=== PATIENT | male | born 1945 | race Caucasian/White ===

== ENCOUNTER 2025-07-12 02:55 | Inpatient (IN) | payer MEDICARE, BC, SELFPAY ==
[2025-07-11 21:44] VITALS: BP 165/40
[2025-07-11 22:04] VITALS: BMI 35.4
[2025-07-11 22:10] VITALS: BP 129/81
[2025-07-11 22:19] LABS: Hematocrit 24.9 % (39.0-52.0); Hemoglobin 8.2 g/dL (13.0-18.0); Mean Corp Hgb Conc. 32.9 g/dL (33.0-37.0); Mean Corpuscular Volume 94.0 fL (80.0-94.0); Nucleated Red Blood Cells % 0 % (-); Platelet Count 199 10^3/uL (130-400); Red Cell Dist. Width 16.2 % (11.5-14.5)
[2025-07-11 22:43] LABS: Troponin I 0.026 ng/ml
[2025-07-11 22:45] LABS: ALT (SGPT) 33 U/L (0-50); AST (SGOT) 40 U/L (17-59); Albumin 3.7 g/dl (3.5-5.0); Alkaline Phosphatase 93 U/L (38-126); Calcium 6.1 mg/dl (8.4-10.2); Carbon Dioxide 14 mmol/L (22-30); Chloride 104 mmol/L (98-107); Estimated Creatinine Clearance 8 ml/min; Glucose 213 mg/dl (70-99); Potassium 6.2 mmol/L (3.5-5.1); Sodium 135 mmol/L (135-145); Total Protein 6.9 g/dl (6.3-8.2); eGFR 4.33
[2025-07-11 22:55] LABS: Blood Urea Nitrogen 160 mg/dl (9-20)
[2025-07-11 23:00] VITALS: BP 132/48
--- NOTE | 2025-07-11 23:02 | EDRN ---
Patient reports needing to use the restroom, feels like he needs to have a bowl movement, ambulated in with assistance, was unable to go , back in bed, patient extremely short of breath after walking and o2 sat only 78%, informed patient we from now
on we can do bed shukla, as he became very short of breath.
[2025-07-11 23:18] VITALS: BP 104/48
[2025-07-11] MEDS: DEXTROSE 50% SYRINGE 25 GRAMS IV (23:18)
[2025-07-11] MEDS: SODIUM BICARBONATE 50 MEQ IV (23:18)
[2025-07-11] MEDS: LASIX 80 MG IV (23:18)
[2025-07-11] MEDS: LOKELMA 10 GRAM PO (23:19)
[2025-07-11] MEDS: CALCIUM GLUCONATE 1000 MG IV (23:19)
[2025-07-11] MEDS: NOVOLIN R 10 UNITS IV (23:19)
[2025-07-11 23:23] LABS: Glucose - Point of Care 241 mg/dl (70-99)
--- NOTE | 2025-07-11 23:30 | ED.GENMED ---
History of Present Illness
General
Chief Complaint: Breathing Problem
Source: patient and spouse
Exam Limitations: none
Time Seen by Provider: 07/11/25 22:41
Nursing documentation reviewed up to this point in time: agreed with
History of Present Illness
History of Present Illness:
This is an 80-year-old gentleman with history of CAD status post CABG times 10/2008. History of PAF chronically maintained on Xarelto, history of insulin requiring diabetes, hypertension, heart failure with preserved EF, neuropathy, chronic kidney
disease stage IV, anemia, hypothyroidism, right BKA. He was hospitalized at [facility] April 09 to April 14 with complaints of shortness of breath and chest pain, treated for acute CHF. Found to have anemia with hemoglobin ranging from
7-9. Thought to be chronic kidney disease as well as iron deficiency. Given an IV dose of iron and placed on oral iron tablets. Diuresed with IV Lasix and discharged to home with Lasix 80 mg daily. He was also found to have chronic kidney
disease with baseline creatinine of 2. Patient states he believes he had follow-up blood work perhaps shortly after that hospitalization, otherwise has an upcoming appointment with his PCP as well as teaching assistant later this month.
He has had no return of chest pain but complains of progressive shortness of breath over the past several weeks to perhaps a month, much worse over the past week or 2, severe dyspnea on exertion, he is only able to walk a few steps when he develops
severe shortness of breath. He has had no change in weight. No lower extremity edema. No cough nor fever.
Over the past week he has had several episodes of hypoglycemia with intermittent falls. He fell out of bed 3 days ago injuring his right side. He denies head injury. He has not had a headache. He denies neck nor back pain.
He does admit to significant constipation having passed a bowel movement perhaps a week ago. His appetite has been fair. He has had no nausea nor vomiting.
Tonight along with worsening dyspnea on exertion he also notes intermittent left lower quadrant pain along with the feeling of need to pass a bowel movement but unable to do so.
He denies difficulty urinating, no dysuria and urgency and or hematuria. He denies decreased urine output.
Past History
Past History
ED Past Medical History: Arrthythmia (PAF), CAD, CHF, COPD, HTN, Hypercholesterolemia, IDDM, Renal failure and Other (Peripheral neuropathy)
ED Past Surgical History: Cardiac (CABG times 10/2008) and Orthopedic (Right BKA)
Social History
Tobacco: Non-smoker
Alcohol: None
Drug: None
Personal:
Living: with family
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
Family History
Family History: Other (Noncontributory)
Phy Exam
Physical Exam
Physical Exam:
GENERAL: 80-year-old gentleman appears his stated age, awake and alert, oriented x 3, pleasant, very mild resting tachypnea noted but able to speak in full sentences. Room air pulse ox at rest 95 to 97%, drops precipitously to low 70s with minimal
exertion.
EYE: pupils equal and reactive. anicteric
NECK: Supple, nontender, no meningismus, no significant adenopathy. Mild JVD.
ENT: posterior pharynx is clear, oral mucosa is dry. No rhinorrhea.
CARDIAC: Regular rate and rhythm. no murmur.
LUNGS: Mild resting tachypnea, bibasilar rales, no chest wall tenderness, no rhonchi or wheezing.
ABDOMEN: Rotund, soft, nondistended, mild tenderness left lower quadrant without rebound or guarding, no r/g, no cvat. normoactive BS. 2 linear superficial scratches with minimal surrounding subacute ecchymosis right mid abdomen. There is a
subacute small ecchymotic patch right posterolateral hip. Rectal exam reveals scant yellowish-brown stool per vault, heme positive.
NEUROLOGICAL: Alert and oriented x3, no focal neuro deficits.
SKIN: Warm and dry, mildly pale in color, mild mottling of the extremities, skin intact. No rash.
MUSCULOSKELETAL: Right below the knee amputation. No C/C/E. peripheral pulses are full and equal b/l. No palpable tenderness.
PSYCH: Normal and appropriate interaction.
Scores
Heart Failure Risk
Heart Failure Risk Score: Yes
History of Stroke or TIA: No
History of intubation for respiratory distress: No
Heart rate on ED arrival >/= 110: No
SaO2 <90% on arrival on room air: No
HR >/=110 during 3min walk test (or too ill to perform test): Yes
ECG has acute ischemic changes: No
Urea >/=12mmol/L (BUN 33.6mg/dL): Yes
Serum CO2>/=35mmol/L: No
Troponin I or T elevated to SD Level (0.4mg/dL): No
NT-proBNP >/=5,000ng/L (5,000pg/ml): No
HF Risk Score: 3
Admission Status: HIGH RISK 15.9% Consider SNF treatment or admission to hospital
Course
Orders/Labs/Results
Orders:
Orders
07/11/25 21:52
ECG [Electrocardiogram (*1)] Urgent
Reason for Study: Shortness of Breath
EKG- Treatment ONCE
07/11/25 22:02
Cardiac Monitoring- Treatment ONCE
IV Insert/Care/Rem.- Treatment PRN
CR Chest - 2 Views Urgent
Comment:
Reason For Exam: respiratory distress
O2 Therapy [RESP] Urgent
Titrate/Wean O2 to maintain O2 sat greater than (%): 93
Special Instructions: TO MAINTAIN CONTINUOUS O2 SATS >/= 93%
Pulse Ox/cont/shift [RESP] Urgent
Quantity: 1
Special Instructions: continuous pulse ox
07/11/25 22:05
Complete Blood Count/With Diff Urgent
Comprehensive Metabolic Panel Urgent
NT-proBNP Urgent
TSH Reflex To Free T4 Urgent
Comment: ADDED
Troponin I Urgent
07/11/25 23:01
Calcium Gluconate 1,000 mg IV NOW STA
Dextrose 50%-Water [Dextrose 50% Syringe] 12.5 grams IV [id number] PRN
Dextrose 50%-Water [Dextrose 50% Syringe] 25 grams IV NOW STA
Furosemide [Lasix] 80 mg IV NOW STA
Insulin Human Regular [Novolin R] 10 units IV NOW STA
Sodium Bicarbonate 50 meq IV NOW STA
Sodium Zirconium Cyclosilicate [Lokelma] 10 gram PO NOW STA
07/11/25 23:02
Bedside Glucose PRE IV Insulin- HyperK+ NOW
07/11/25 23:52
Add On- LAB Urgent
Tests Added?: TSH w reflex to free T-4
07/12/25
CT Abd/pel Without Iv Or Oral Urgent
Reason For Exam: LLQ pain x 1 day, constipation, freq falls x [address] Head W/o Iv Contrast Urgent
Reason For Exam: freq falls x 1 wk, on xarelto
07/12/25 00:32
Bedside Glucose POST IV Insulin- HyperK+ Q1HX2,Q2HX2
07/12/25 01:19
Potassium Urgent
Comment: draw 2 hours after regular insulin IV administration
07/12/25 03:33
Potassium Urgent
Comment: draw 4 hours after furosemide administered
Abnormal Lab Results
07/11/25 07/11/25 07/11/25
22:05 23:16 23:46
WBC 16.0 H 10^3/uL
(4.8-10.8)
RBC 2.65 L 10^6/uL
(4.70-6.10)
Hgb 8.2 L g/dL
(13.0-18.0)
Hct 24.9 L %
(39.0-52.0)
MCHC 32.9 L g/dL
(33.0-37.0)
RDW 16.2 H %
(11.5-14.5)
MPV 12.2 H fL
(7.4-10.4)
Abs Immat Gran (auto) 0.2 H 10^3/uL
(0-0.05)
Absolute Neuts (auto) 13.4 H 10^3/uL
(1.4-6.5)
Absolute Lymphs (auto) 1.0 L 10^3/uL
(1.2-3.4)
Absolute Monos (auto) 1.3 H 10^3/uL
(0.1-0.6)
Immature Gran % 1.1 H %
(0-0.5)
Neutrophils % 84.1 H %
(42.2-75.2)
Lymphocytes % 6.0 L %
(20.5-51.1)
Potassium 6.2 H* mmol/L
(3.5-5.1)
Carbon Dioxide 14 L* mmol/L
(22-30)
BUN 160 H* mg/dl
(9-20)
Creatinine 10.9 H* mg/dL
(0.7-1.3)
Glucose 213 H mg/dl
(70-99)
Calcium 6.1 L* mg/dl
(8.4-10.2)
POC Glucose 241 H mg/dl 290 H mg/dl
(70-99) (70-99)
07/11/25 22:05
Vital Signs
Initial and Last Documented VS:
Initial Vital Signs
Temp Pulse Resp BP Pulse Ox
98 F 68 22 165/40 95
07/11/25 21:44 07/11/25 21:44 07/11/25 21:44 07/11/25 21:44 07/11/25 21:44
Last Documented Vital Signs
Temp Pulse Resp BP Pulse Ox
98 F 74 13 145/65 94
07/11/25 21:44 07/12/25 00:15 07/12/25 00:15 07/12/25 00:00 07/11/25 23:49
MDM/Problems Addressed
Differential Diagnosis Includes:
DIFFERENTIAL DIAGNOSIS
The Differential Diagnosis includes, in no particular order and is not limited to:
1. Congestive heart failure exacerbation.
2. Acute renal failure.
3. Hyperkalemia.
4. Constipation or bowel obstruction.
5. Acute coronary syndrome.
6. Pulmonary edema.
7. Chronic obstructive pulmonary disease.
8. Pulmonary embolism.
9. Hypertensive crisis.
10. Atrial fibrillation with rapid ventricular response.
11. Exacerbation of hypothyroidism
12. Kidney stone/urinary obstruction
MDM/Problems Addressed:
PROBLEM LIST
Acute:
1. Acute renal failure with elevated creatinine.
2. Hyperkalemia.
3. Constipation.
4. Shortness of breath.
Chronic:
1. Congestive heart failure.
2. Atrial fibrillation.
3. Chronic kidney disease.
4. IRDM
Patient noted to have fairly minimal dyspnea at rest but oxygenating well and remains hemodynamically stable.
Significant dyspnea on exertion and significant hypoxia with minimal exertion.
Labs are notable for moderate anemia with hemoglobin of 8.2�according to records this appears to be his baseline. Mildly elevated white blood cell count of 16. He remains afebrile. Denies cough, infectious process is less likely.
Brown stool that is heme positive. Concern for occult GI bleed versus heme positive related to oral iron supplementation. Also highly suspect anemia of chronic disease/chronic kidney disease.
Creatinine is significantly elevated at 10 with moderate hypocalcemia and elevated potassium of 6.2.
Creatinine has trended up significantly from April with apparent baseline creatinine of 2.0.
Chest x-ray shows cardiomegaly, concern for left lower lobe infiltrate versus an element of CHF.
EKG shows normal sinus rhythm, incomplete left bundle branch block. Minimally peaked T waves anteriorly. No old EKGs to compare.
Patient noted to have moderate intermittent left lower quadrant pain and urge to defecate. This could certainly be related to constipation but must also consider renal colic. Other consideration is post fall/trauma related intra-abdominal issue.
Rectal exam reveals only minimal stool within the vault.
A bedside renal ultrasound shows no evidence of hydronephrosis. No intra-abdominal free fluid on FAST exam.
Will treat hyperkalemia with IV calcium gluconate, IV insulin, glucose, IV Lasix and will give an oral dose of Lokelma.
Due to recent falls, chronically maintained on Xarelto, left lower quadrant abdominal pain, will check CT abdomen pelvis without contrast. Will also check CT of the head.
Patient will require acute hospitalization for treatment of acute on chronic kidney disease, acute exacerbation of CHF. Acute hypoxic respiratory failure.
Chronic conditions affecting care: DM, HTN, CAD, Arrhythmia, COPD, Neurological disorder and Kidney disease
*Radiology
Radiology exam reviewed: radiology read reviewed
*Pulse Oximetry
SaO2: 94
Oxygen Mode of Delivery: Room air
Patient hypoxic: no
*EKG
Interpreted by ED Provider?: Yes
Interpretation: abnormal
Comparison EKG: no comparison EKG present
Rate: normal
Rhythm: a-fib
[place]: normal axis
Interval: long QT
QRS Pattern: left bundle branch block (Incomplete left bundle branch block)
Ischemia: non-specific ST changes
*Splicing Machine Operator Interpretation
Rate: normal
Interpretation: abnormal
Rhythm: a-fib
*Critical Care Note
Total Time (30-74mins, 75-104mins- exclusive of procedures): 40
comment:
Critical care statement: A total of 40 minutes of critical care time was provided for this patient. This includes management of unstable vital signs, evaluation of the patient at bedside, reviewing the patient's pertinent medical records, discussion
with consultants, review of old EKGs and review of pertinent medical records. This time with separate from time utilized to perform the aforementioned documented procedures
Update Note
Update Note:
01:30
Patient remains hemodynamically stable.
CT of the head is unremarkable. CT abdomen pelvis shows wall thickening of the sigmoid colon with surrounding fat stranding. Concerning for colitis, diverticulitis is less likely. No bowel obstruction. No free fluid nor free air. Unremarkable
gallbladder, pancreas, kidneys. Mosaic attenuation of the lung bases could be related to small airway disease.
Repeat electrolytes are pending.
Will admit to hospitalist service.
ED Attending Note
-
Portions of this chart may have been created with voice recognition software.� Occasional wrong word or��sound alike� substitutions may have occurred due to the inherent limitations of voice recognition software.
Discharge Plan
Departure
Patient Disposition: Admit
Date of Disposition: 07/12/25
Time of Disposition: 01:37
Admit to: IMU
Admit to doctor: Ino
Presentation/result/management discussed w/ accepting MD/DO: Hospitalist
Condition: Serious
Discharge Problem:
Acute on chronic diastolic CHF (congestive heart failure), Acute kidney injury superimposed on stage 4 chronic kidney disease, Acute hyperkalemia, Acute hypoxemic respiratory failure, Insulin-requiring or dependent type II diabetes mellitus
Prescriptions:
No Action
atorvastatin 80 mg Tablet
80 mg PO HS
diclofenac sodium 3 % Gel
1 applic TOPICAL PRN PRN (Reason: pain)
amiodarone 200 mg Tablet
200 mg PO DAILY
cromolyn 4 % Drops
1 drp OPHTHALMIC (EYE) PRN PRN (Reason: dryness)
furosemide 80 mg Tablet
80 mg PO HS
desloratadine 5 mg Tablet
5 mg PO DAILY
ferrous sulfate 325 mg (65 mg iron) Tablet
325 mg PO DAILY
levothyroxine 125 mcg Tablet
125 mcg PO DAILY
gabapentin 300 mg Capsule
600 mg PO DAILY
insulin aspart U-100 [Novolog FlexPen U-100 Insulin] 100 unit/mL (3 mL) Insulin Pen
1 sliding scale dose SC DIRECTED
tadalafil 5 mg Tablet
5 mg PO .EVERY 3RD DAY
metoprolol tartrate 25 mg Tablet
25 mg PO BID
solifenacin 5 mg Tablet
5 mg PO DAILY
pregabalin 150 mg Capsule
150 mg PO DAILY
Xarelto 15 mg Tablet
15 mg PO BID
insulin degludec [Tresiba FlexTouch U-200] 200 unit/mL (3 mL) Insulin Pen
116 unit SC HS
Ozempic 2 mg/dose (8 mg/3 mL) Pen Injector
8 mg SC QWEEK
pregabalin 300 mg Capsule
300 mg PO HS
Referrals:
Elizabeth Nolasco DO [Family Provider]
Interventions
Interventions:
*General Assessment Last Done: 07/11/25 21:44
*Neglect/Abuse Screening Last Done: 07/11/25 22:04
*ED COVID-19 Vaccine History Last Done: 07/11/25 22:04
*ED Influenza Vaccine History Last Done: 07/11/25 22:04
[facility] Fall Risk Assessment Tool Last Done: 07/11/25 22:04
ED- Cardiac Assessment Last Done: 07/11/25 23:07
ED- Pulmonary Assessment Last Done: 07/11/25 23:07
Discharge Date and Time
Print Language: ALBANIAN
[2025-07-11 23:47] LABS: Glucose - Point of Care 290 mg/dl (70-99)
[2025-07-12] VITALS (12 sets, daily range): BP systolic 96–146; BP diastolic 44–100; BMI 34.7
--- NOTE | 2025-07-12 01:41 | EDRN ---
Patient needing to using the restroom, placed on the bedpan, had a small soft bowl moment, cleaned up and pulled up in bed
[2025-07-12 01:43] LABS: Glucose - Point of Care 198 mg/dl (70-99)
[2025-07-12 01:53] LABS: Potassium 5.9 mmol/L (3.5-5.1)
--- NOTE | 2025-07-12 02:47 | HPS.HSE ---
Family Physician
-
Family Physician: Elizabeth Nolasco
Chief Complaint
-
SOB
History of Present Illness
Patient is an 80y M with PMH significant for hypertension, DM-II and CHF who presents to ED complaining of SOB. Patient states that he was hospitalized about 2 months ago at [facility]. He was newly diagnosed with CHF during that visit
and started on several new medications including Lasix 80mg daily. Patient states that he presented with chest pain and SOB. His chest pain improved; however, his SOB did not. Patient notes that he has continued to feel progressively more SOB
with activity since that discharge. He states that he is urinating without difficulty. He complains of constipation and notes that his last BM was about one week ago.
No fevers / chills. No chest pain / palpitations. No cough. No N/V.
Patient notes that he now becomes SOB even with minimal exertion / activity. He presented to the ED for further evaluation.
Medical History
Past Medical History
Past Medical History: Reports Other
Additional Past Medical History:
ASCVD
Hypertension
CHF
A-Fib
DM-II
Peripheral Neuropathy
Obesity
Hypothyroidism
CKD - ? Stage
Past Surgical History: Reports Other
Additional Past Surgical History:
CABG x 2
Right BKA
Social History
Tobacco: Former Smoker
Alcohol: None
Drug: None
Family History
Family History: Not pertinent
Allergies / Home Medications
Allergies reflects when Allergies were last updated in [facility].
Home Medications with original date entered in [facility]
Allergy/Medication List:
Allergies
Allergy/AdvReac Type Severity Reaction Status Date / Time
No Known Allergies Allergy Unverified 07/11/25 21:44
Home Medications
amiodarone 200 mg tablet 200 mg PO DAILY 07/11/25
atorvastatin 80 mg tablet 80 mg PO HS 07/11/25
cromolyn 4 % eye drops 1 drp ophthalmic (eye) PRN PRN dryness 07/11/25
desloratadine 5 mg tablet 5 mg PO DAILY 07/11/25
diclofenac sodium 3 % topical gel 1 applic topical PRN PRN pain 07/11/25
ferrous sulfate 325 mg (65 mg iron) tablet 325 mg PO DAILY 07/11/25
furosemide 80 mg tablet 80 mg PO HS 07/11/25
gabapentin 300 mg capsule 600 mg PO DAILY 07/11/25
insulin aspart U-100 100 unit/mL (3 mL) subcutaneous pen (Novolog FlexPen U-100 Insulin aspart) 1 sliding scale dose SC DIRECTED 07/11/25
insulin degludec 200 unit/mL (3 mL) subcutaneous pen (Tresiba FlexTouch U-200 insulin) 116 unit SC HS 07/11/25
levothyroxine 125 mcg tablet 125 mcg PO DAILY 07/11/25
metoprolol tartrate 25 mg tablet 25 mg PO BID 07/11/25
pregabalin 150 mg capsule 150 mg PO DAILY 07/11/25
pregabalin 300 mg capsule 300 mg PO HS 07/11/25
rivaroxaban 15 mg tablet (Xarelto) 15 mg PO BID 07/11/25
semaglutide 2 mg/dose (8 mg/3 mL) subcutaneous pen injector (Ozempic) 8 mg SC QWEEK 07/11/25
solifenacin 5 mg tablet 5 mg PO DAILY 07/11/25
tadalafil 5 mg tablet 5 mg PO .EVERY 3RD DAY 07/11/25
Review of Systems
-
History Source: Patient
A 12 point ROS was completed and negative except as noted: Yes
Constitutional: Reports Fatigue; Denies Fever or Chills
EENT: Denies Sore Throat
Respiratory: Reports Trouble Breathing; Denies Cough or Hemoptysis
Cardiac: Denies Chest Pain, Diaphoresis, Palpitations or Syncope
Abdomen/GI: Reports Constipated; Denies Abdominal Pain, Nausea or Vomiting
: Denies Dysuria, Frequency or Flank Pain
Musculoskeletal: Denies Joint Pain or Edema
Neurological: Denies Dizzy or Headache
Psych: Denies Depression or Anxiety
Physical Exam
Vital Signs
Vital Signs
Temp Pulse Resp BP Pulse Ox
98 F 78 15 146/58 90
07/11/25 21:44 07/12/25 01:30 07/12/25 01:30 07/12/25 01:00 07/12/25 01:15
Physical Exam
General: Other (Obese 80y M in no acute distress.)
HEENT: Other (Very thick neck. No appreciable JVD.)
Respiratory: Other (Decreased at both bases. No wheezes / rales / rhonchi.)
Cardiac: S1/S2, Irregular Rhythm and Murmur (II/ DEISY)
GI: Other (Abdomen is obese and distended. No focal tenderness / rebound / guarding. Pos BS.)
Musculoskeletal: No Clubbing, No Cyanosis, No Edema and Other (R BKA. No peripheral pitting edema R thigh or LLE.)
Neuro: AO x 3
Laboratory Results
-
07/11/25 22:05
Laboratory Results
Total Bilirubin 0.8 mg/dl (0.2-1.3) 07/11/25 22:05
AST 40 U/L (17-59) 07/11/25 22:05
ALT 33 U/L (0-50) 07/11/25 22:05
Alkaline Phosphatase 93 U/L (38-126) 07/11/25 22:05
Troponin I 0.026 ng/ml 07/11/25 22:05
Impression/Plan
-
A/P: Patient is an 80y M with PMH significant for ASCVD, CHF and DM-II who presents to ED complaining of SOB with exertion.
LYNN on CKD - ? Stage
Anion Gap Metabolic Acidosis secondary to the above
Hyperkalemia
- Admit for further evaluation and treatment.
- Received initial hyperkalemia temporizing measures in the ED.
- Whitney to be placed now with marked LYNN, hyperkalemia, BPH and constipation.
- Monitor I/Os.
- Volume status is difficult to assess. Newly started on Lasix 80mg daily about 2 months ago.
- No significant edema on exam, but significant exertional dyspnea / hypoxemia.
- Would hold further diuretic for now.
- IVFs with supplemental bicarb at low rate.
- Send to [facility] for most recent records re: baseline renal function, recent Echo, etc.
- Nephrology evaluation for additional recommendations.
- ? worsening cardiorenal syndrome. ? impending HD needs.
- Hold or adjust most of his medications acutely.
- Monitor for improvement in renal function, acidosis, etc.
Acute Hypoxemic Respiratory Insufficiency
- Patient with persistent / progressive exertional dyspnea x [address]
- CT / CXR with ground glass / mosaic changes primarily.
- Check ABGs now.
- Body habitus consistent with ALVIN / OHV and may benefit from NIPPV.
- Continue supportive care with O2 supplementation, etc.
- Cardiovascular evaluation as noted below. Obtain and review most recent records from [facility].
- Consider Pulmonary evaluation if no clear etiology for hypoxemia is identified.
Chronic HF - Unknown Type
- Despite exertional dyspnea / hypoxemia, patient does not appear grossly volume overloaded on exam, CXR, etc.
- Hold further diuretic for now.
- Check Echo. Obtain prior records from [facility].
- CHF is a recent diagnosis as of last [facility] admission about 2 months ago.
Diverticulitis / Colitis
Constipation
Leukocytosis with L Shift
- Patient reports no BM in [address] with sigmoid inflammation - colitis v diverticulitis.
- Good results in ED after Lokelma dose.
- Continue bowel regimen.
- IV abx for now with ceftriaxone and metronidazole.
- Follow for improvement in leukocytosis. Monitor for any fever or new symptoms.
ASCVD
- h/o CABG x2. Patient reports cath done during most recent hospitalization that showed 'clean coronaries'.
- ASA daily. Monitor for any chest pain / etc.
- Follow troponin to peak - fairly mild elevation given extent of renal impairment.
Atrial Fibrillation - Unknown Type
- Stable. Hold amiodarone acutely given prolonged QT.
- Hold Xarelto given LYNN.
- Continue metoprolol with holding parameters.
- Monitor on telemetry. Cardio eval / prior records as noted above.
DM-II with Peripheral Neuropathy
- Patient on very high doses of insulin. Will decrease acutely given poor renal function.
- Follow and cover with additional SSI as needed.
- Adjust dose for adequate glycemic control.
- Update A1C.
- Hold gabapentin and Lyrica (both?) acutely.
- Hold Ozempic.
Normocytic Anemia
- Unknown etiology, chronicity, etc. Review prior records once available.
- Heme test stools. Check iron studies and replete if needed.
- Follow H&H for changes.
Hypothyroidism
- TSH is elevated at 11.9. Increase T4 supplementation to 150mcg for now.
BPH
- Whitney placed acutely given LYNN, hyperkalemia, etc.
- Hold tadalafil. Start tamsulosin.
- Follow I/Os. TOV prior to discharge.
Obesity due to excess calories
- Affects all aspects of care.
- See above re: ALVIN / OHV.
- Encourage healthy diet and exercise as tolerated with goal of weight loss.
DVT Prophylaxis: Subcut Heparin
Code Status: Full
--- NOTE | 2025-07-12 03:02 | EDRN ---
Patient placed on bedpan to have a large bowl movement, cleaned up and pulled up in bed.
[2025-07-12 03:14] LABS: Glucose - Point of Care 193 mg/dl (70-99)
[2025-07-12] MEDS: ROCEPHIN 1000 MG IV (03:14)
[2025-07-12] MEDS: STERILE WATER FOR INJECTION 10 ML IV (03:14)
[2025-07-12] MEDS: FLAGYL 500 MG 100 IV ×2 (03:14→13:48)
[2025-07-12 03:40] LABS: B.E. -11.5 mmol/L; HCO3 13.9 mmol/L (21-28); O2 Saturation % 96.3 % (94-98); PCO2 29 mmHg (35-48); PO2 79 mmHg (83-108)
[2025-07-12 03:44] LABS: O2 Therapy 2 LPM
[2025-07-12 03:59] LABS: Potassium 5.8 mmol/L (3.5-5.1)
[2025-07-12] MEDS: SODIUM BICARBONATE 1150 MEQ IV (04:45)
[2025-07-12 05:10] LABS: Glucose - Point of Care 150 mg/dl (70-99)
[2025-07-12 05:34] LABS: Glucose - Point of Care 144 mg/dl (70-99)
[2025-07-12 05:50] LABS: Hematocrit 23.3 % (39.0-52.0); Hemoglobin 7.6 g/dL (13.0-18.0); Mean Corp Hgb Conc. 32.6 g/dL (33.0-37.0); Mean Corpuscular Volume 93.2 fL (80.0-94.0); Platelet Count 146 10^3/uL (130-400); Red Cell Dist. Width 16.2 % (11.5-14.5)
[2025-07-12 06:18] LABS: Iron 54 ug/dl (49-181)
[2025-07-12 06:28] LABS: Total Iron Binding Capacity 274 ug/dl (261-462)
[2025-07-12 06:31] LABS: ALT (SGPT) 33 U/L (0-50); AST (SGOT) 35 U/L (17-59); Albumin 3.5 g/dl (3.5-5.0); Alkaline Phosphatase 89 U/L (38-126); Blood Urea Nitrogen 169 mg/dl (9-20); Calcium 6.3 mg/dl (8.4-10.2); Carbon Dioxide 17 mmol/L (22-30); Chloride 105 mmol/L (98-107); Estimated Creatinine Clearance 8 ml/min; Glucose 128 mg/dl (70-99); Magnesium 1.3 mg/dl (1.6-2.3); Potassium 5.6 mmol/L (3.5-5.1); Sodium 140 mmol/L (135-145); Total Protein 6.6 g/dl (6.3-8.2); Troponin I 0.024 ng/ml; eGFR 4.48
[2025-07-12 06:55] LABS: Ferritin 111.0 ng/ml (17.9-464.0)
[2025-07-12 07:26] LABS: Glycohemoglobin (HgbA1c) 7.5 % (4.0-5.9)
[2025-07-12 07:50] LABS: Glucose - Point of Care 132 mg/dl (70-99)
[2025-07-12] MEDS: SYNTHROID 150 MCG PO (08:36)
[2025-07-12] MEDS: LOKELMA 10 GRAM PO ×3 (08:39→17:51)
[2025-07-12] MEDS: MAGNESIUM SULFATE 50 IV (08:39)
[2025-07-12] MEDS: HEPARIN 5000 UNITS SC ×3 (08:40→23:29)
[2025-07-12] MEDS: NOVOLOG FLEXPEN-MODERATE RESISTANCE SC ×2 (09:22→17:47)
[2025-07-12] MEDS: LANTUS 0.2 UNITS SC ×2 (09:26→22:27)
--- NOTE | 2025-07-12 10:40 | CON.CAR ---
Addendum entered and electronically signed by Luis Armando Salas MD 07/12/25 12:21:
I reviewed and agree with the note by KATYA and it accurately reflects our care.
I saw and evaluated the patient, and I provided the substantive portion of the medical decision making. My assessment and plan is below:
80-year-old man with CAD s/p CABG (2008), NSVT, paroxysmal atrial fibrillation, CKD, diabetes, hypertension, and osteomyelitis s/p BKA of RLE who presents with shortness of breath. Patient follows with Dr. Kory Salmeron at [facility] cardiology. Over
the summer he developed chest tightness and dyspnea on exertion. Left heart catheterization from 03/23/2025 showed [place] coronary artery disease and patent bypass grafts. TTE from 03/21/2025 showed LVEF 60-65%, mildly dilated RV with normal
systolic function, moderate MR, mild TR, PASP 40-45 mmHg. He was started on Lasix which he is still taking. He was hospitalized at [facility] 2 months ago for chest pain. I do not have these records for review but he tells me that he was
started on steroids and his chest pain improved. Shortness of breath persists and has been progressive since March. He denies weight gain, lower extremity edema, and orthopnea. His dyspnea is primarily on exertion.
Physical exam: RRR, no significant murmurs though body habitus limits auscultation, lungs are clear bilaterally, RLE BKA, LLE with no edema and 2+ DP pulse
Labs are notable for hemoglobin 7.6, K6.2 -> 5.6, BUN 169, creatinine 10.6, A1c 7.5, troponin 0.026, proBNP 3020, TSH 11.9, free T41.2 (WNL)
CXR with low lung volumes, no pleural effusions, no significant pulmonary edema
PLAN:
Acute renal failure: Unclear baseline creatinine. Nephrology is consulted. We are trying to obtain records.
HFpEF: Last EF 60-65% in March. His volume exam is difficult due to body habitus, and he does not weigh himself. His proBNP is not severely elevated (but he is obese) and CXR does not show significant pulmonary edema or pleural effusions. I do
not think that he is profoundly volume overloaded but again his volume status is challenging. Will discuss with utility of right heart catheterization with renal. Repeat echo here. Hold diuretics for now.
Paroxysmal atrial fibrillation: He is in an accelerated junctional rhythm here. He is on amiodarone as an outpatient. Previously on sotalol but this was stopped due to progressive CKD. Will hold amiodarone for long QT (483 ms). Xarelto also on
hold for anemia and very low GFR.
Coronary artery disease: Had three-vessel CABG in 2008. LHC in March 2025 showed patent grafts. Continue aspirin and statin. If hemoglobin drops further, can hold aspirin given stable disease with no recent revascularization.
NSVT: Reportedly monomorphic, asymptomatic, and seen on outpatient monitor in 2020. Amiodarone on hold as above. Continue metoprolol.
Original Note:
Consultation
Consultation Request
Date/Time Consultation Requested: 07/12/2025 04:15
Date/Time Consultation Performed: 07/12/2025 10:00
Requesting Provider: Dr. Mckinnon
Performing Provider: KATYA Gilman for Dr. Salas
Reason for Consultation: Chronic heart failure
Medical History
-
Chief Complaint: Shortness of breath
History of Present Illness:
David Valdivia is an 80-year-old male (known to Dr. Salmeron at [facility]) with coronary artery disease (prior CABG), heart failure (type unknown), atrial fibrillation (type unknown, on rivaroxaban), NSVT, hypertension, hypercholesterolemia, CKD stage
unknown, hypothyroidism, and type 2 diabetes mellitus who presented to the emergency department the chief complaint of shortness of breath. He endorses a hospitalization at [facility] approximately 2 months ago. At that time his medical
therapy changed including starting furosemide. His shortness of breath has gotten worse since discharge. He presented to the emergency room for evaluation. Notable data includes an EKG with an accelerated junctional rhythm and a prolonged QTc,
WBC 16, K6.2, BUN 160, CO2 14, and creatinine of 10.9. Cardiology was consulted for heart failure management. He denies chest pain, dizziness, and syncope/presyncope.
Past Medical History
Past Medical History: Arrhythmias (NSVT, atrial fibrillation [type unknown, on Xarelto]), CAD, CHF, HTN, Hypercholesterolemia, Hypothyroidism, NIDDM and Renal Failure (CKD)
Past Surgical History: Cardiac (CABG) and Other (Right BKA)
Social History
Tobacco: Former Smoker
Personal:
Living: With Family
Employment: Retired
Family History
Family History: Reviewed & Not Pertinent
Allergies / Home Medications
Allergy/AdvReac Type Severity Reaction Status Date / Time
No Known Allergies Allergy Unverified 07/11/25 21:44
�Medication �Instructions �Recorded �Confirmed �Type
amiodarone 200 mg tablet 200 mg PO DAILY 07/11/25 07/11/25 History
atorvastatin 80 mg tablet 80 mg PO HS 07/11/25 07/11/25 History
cromolyn 4 % eye drops 1 drp ophthalmic (eye) PRN PRN 07/11/25 07/11/25 History
dryness
desloratadine 5 mg tablet 5 mg PO DAILY 07/11/25 07/11/25 History
diclofenac sodium 3 % topical gel 1 applic topical PRN PRN pain 07/11/25 07/11/25 History
ferrous sulfate 325 mg (65 mg 325 mg PO DAILY 07/11/25 07/11/25 History
iron) tablet
furosemide 80 mg tablet 80 mg PO HS 07/11/25 07/11/25 History
gabapentin 300 mg capsule 600 mg PO DAILY 07/11/25 07/11/25 History
insulin aspart U-100 100 unit/mL 1 sliding scale dose SC DIRECTED 07/11/25 07/11/25 History
(3 mL) subcutaneous pen (Novolog
FlexPen U-100 Insulin aspart)
insulin degludec 200 unit/mL (3 116 unit SC HS 07/11/25 07/11/25 History
mL) subcutaneous pen (Tresiba
FlexTouch U-200 insulin)
levothyroxine 125 mcg tablet 125 mcg PO DAILY 07/11/25 07/11/25 History
metoprolol tartrate 25 mg tablet 25 mg PO BID 07/11/25 07/11/25 History
pregabalin 150 mg capsule 150 mg PO DAILY 07/11/25 07/11/25 History
pregabalin 300 mg capsule 300 mg PO HS 07/11/25 07/11/25 History
rivaroxaban 15 mg tablet (Xarelto) 15 mg PO BID 07/11/25 07/11/25 History
semaglutide 2 mg/dose (8 mg/3 mL) 8 mg SC QWEEK 07/11/25 07/11/25 History
subcutaneous pen injector (Ozempic)
solifenacin 5 mg tablet 5 mg PO DAILY 07/11/25 07/11/25 History
tadalafil 5 mg tablet 5 mg PO .EVERY 3RD DAY 07/11/25 07/11/25 History
Review of Systems
-
History Source: Patient
All other systems: Negative unless noted
Constitutional: Fatigue
EENT: No Symptoms
Respiratory: Trouble Breathing
Cardiac: No Symptoms
Abdomen/GI: No Symptoms
: No Symptoms
Musculoskeletal: No Symptoms
Neurological: No Symptoms
Endocrine: No Symptoms
Hematologic/Lymphatic: No Symptoms
Physical Exam
Vital Signs
Temp Pulse Resp BP Pulse Ox
98.0 F 81 13 96/60 96
07/12/25 08:00 07/12/25 06:00 07/12/25 06:00 07/12/25 05:02 07/12/25 06:00
Lab Results
07/12/25 05:34
07/12/25 05:34
Troponin I Cancelled 07/12/25 16:15
Yhj-W-Vzepleijhkk Pept 3020 pg/ml 07/11/25 22:05
Physical Exam
General: Well Developed, Well Nourished, No Apparent Distress and Comfortable
HEENT: Normocephalic, Anicteric and Moist Mucous Membranes
Respiratory: Clear and Non Labored Respirations
Cardiac: S1/S2, Irregular Rhythm and Peripheral Edema (trace)
Breast: Deferred by me
GI: Soft, Non Tender, Non Distended and Normal Bowel Sounds
Rectal: Deferred by Provider
Genito-urinary: No Costovertebral Tender
Musculoskeletal: No Clubbing and No Cyanosis
Skin: Warm and Dry
Neuro: Awake and Alert
Hematologic/Lymphatic: No Lymphadenopathy
Psych: Calm
Impression / Plan
-
I/P: 80M with CAD (prior CABG), heart failure (type unknown), atrial fibrillation (type unknown, on rivaroxaban), NSVT, hypertension, hypercholesterolemia, CKD stage unknown, hypothyroidism, and type 2 diabetes mellitus who presented to the
emergency department the chief complaint of shortness of breath.
Primary physiotherapist's assistant: Dr. Salmeron ([facility])
Shortness of breath
- Given his BMI consider ALVIN evaluation
- Records requested from primary physiotherapist's assistant
- Echocardiogram today
- May need to consider RHC for volume status this admission
LYNN on CKD, CKD stage unknown
- Creatinine 10.9 on admission, 10.6 today
- Nephrology following
Heart failure, type unknown, chronic
- He does not appear grossly volume overloaded on exam
- No diuresis with current renal status
- Trend daily weight, I/O, and BMP
Atrial fibrillation, type unknown
- Accelerated junctional rhythm
- Xarelto on hold given LYNN
CAD, s/p CABG
- Denies chest pain, not on ASA as he is on Xarelto
- [facility] 03/2025: All bypass grafts were patent (Dr. Dick)
NSVT, amiodarone on hold
Type 2 diabetes mellitus, HgbA1c pending, per primary
Obesity, BMI 34, on Ozempic
SUBJECTIVE:
As above.
DATA:
Transthoracic echocardiogram, 03/21/2025:
EF 60 to 65%. RV mildly dilated. No evidence of PFO
Moderate mitral regurgitation. Mild TR. PASP 40-45 mmHg
Data Reviewed
-
EKG: Report Reviewed by me
Labs: Labs Reviewed by me
Old Records: Requested
[2025-07-12] MEDS: LOPRESSOR 25 MG PO ×2 (11:06→20:17)
[2025-07-12] MEDS: LOW STRENGTH ASPIRIN 81 MG PO (11:06)
[2025-07-12] MEDS: FLOMAX 0.4 MG PO (11:06)
[2025-07-12] MEDS: MIRALAX 17 GRAMS PO (11:06)
--- NOTE | 2025-07-12 11:18 | W.CON.NEPH ---
Consultation
-
Date/Time Consultation Requested: 07/12/25 0415
Date/Time Consultation Performed: 07/12/25 1030
Requesting Provider: Luciano Baker
Performing Provider: Staci Lewis
Reason for Consultation: LYNN
Medical History
-
Chief Complaint: SOB
History of Present Illness:
80y M with PMH significant for hypertension on metoprolol, P afib on Amiodarone, AC with high dose Xarelto, CAD s/p CABG 2008, DM-II on Ozempic, Tresiba, right BKA for infection, neuroapthy on gabapentin, lyrica, and CHF on daily lasix who
presents to ED last night complaining of SOB. Patient states that he was hospitalized about 2 months ago at [facility]. He was newly diagnosed with CHF during that visit and started on several new medications including Lasix 80mg daily.
Patient states that he initially presented with chest pain and SOB, LHC reportedly was done too. His chest pain improved; however, his SOB did not improve to baseline. Patient notes that he has continued to feel progressively more SOB with
activity since that discharge. He states that he is urinating without difficulty. He complains of constipation and notes that his last BM was about one week ago.
No fevers / chills. No chest pain / palpitations. No cough. No N/V, no abd pain.
Labs noted cr 10.9, BUN 160, k 6.2, bicarb 14, WBC 16, hb 8.2, plt 199, morales low 6.1, BNP 3020. He was started on bicarb IVF cr no change at this am at 10.6, BUN 169, improving bicarb 17, k 5.6. He has emmanuel placed and he made over 1lit of clear
urine.
Pt does seem to know there could be CKD but never saw nephrology before. He did not notice any change in UOP.
Past Medical History
ASCVD
Hypertension
CHF
A-Fib
DM-II
Peripheral Neuropathy
Obesity
Hypothyroidism
CKD - ? Stage
Past Surgical History: Other (CABG x 2 Right BKA)
Social History
Tobacco: Former Smoker
Alcohol: None
Drug: None
Employment: Retired (worked as commercial carpenter)
Family History
father of colon cancer
mom at 92
Family History: Not Pertinent
Allergies / Home Medications
Allergy/AdvReac Type Severity Reaction Status Date / Time
No Known Allergies Allergy Unverified 07/11/25 21:44
�Medication �Instructions �Recorded �Confirmed �Type
amiodarone 200 mg tablet 200 mg PO DAILY 07/11/25 07/11/25 History
atorvastatin 80 mg tablet 80 mg PO HS 07/11/25 07/11/25 History
cromolyn 4 % eye drops 1 drp ophthalmic (eye) PRN PRN 07/11/25 07/11/25 History
dryness
desloratadine 5 mg tablet 5 mg PO DAILY 07/11/25 07/11/25 History
diclofenac sodium 3 % topical gel 1 applic topical PRN PRN pain 07/11/25 07/11/25 History
ferrous sulfate 325 mg (65 mg 325 mg PO DAILY 07/11/25 07/11/25 History
iron) tablet
furosemide 80 mg tablet 80 mg PO HS 07/11/25 07/11/25 History
gabapentin 300 mg capsule 600 mg PO DAILY 07/11/25 07/11/25 History
insulin aspart U-100 100 unit/mL 1 sliding scale dose SC DIRECTED 07/11/25 07/11/25 History
(3 mL) subcutaneous pen (Novolog
FlexPen U-100 Insulin aspart)
insulin degludec 200 unit/mL (3 116 unit SC HS 07/11/25 07/11/25 History
mL) subcutaneous pen (Tresiba
FlexTouch U-200 insulin)
levothyroxine 125 mcg tablet 125 mcg PO DAILY 07/11/25 07/11/25 History
metoprolol tartrate 25 mg tablet 25 mg PO BID 07/11/25 07/11/25 History
pregabalin 150 mg capsule 150 mg PO DAILY 07/11/25 07/11/25 History
pregabalin 300 mg capsule 300 mg PO HS 07/11/25 07/11/25 History
rivaroxaban 15 mg tablet (Xarelto) 15 mg PO BID 07/11/25 07/11/25 History
semaglutide 2 mg/dose (8 mg/3 mL) 8 mg SC QWEEK 07/11/25 07/11/25 History
subcutaneous pen injector (Ozempic)
solifenacin 5 mg tablet 5 mg PO DAILY 07/11/25 07/11/25 History
tadalafil 5 mg tablet 5 mg PO .EVERY 3RD DAY 07/11/25 07/11/25 History
Review of Systems
-
All other systems: Negative unless noted
Physical Exam
Vital Signs
Vital Signs
Temp Pulse Resp BP Pulse Ox
98.0 F 78 13 118/41 96
07/12/25 08:00 07/12/25 11:06 07/12/25 06:00 07/12/25 11:06 07/12/25 06:00
Lab Results
WBC 13.3 10^3/uL (4.8-10.8) H 07/12/25 05:34
RBC 2.50 10^6/uL (4.70-6.10) L 07/12/25 05:34
Hgb 7.6 g/dL (13.0-18.0) L 07/12/25 05:34
Hct 23.3 % (39.0-52.0) L 07/12/25 05:34
Plt Count 146 10^3/uL (130-400) D 07/12/25 05:34
Sodium 140 mmol/L (135-145) 07/12/25 05:34
Potassium 5.6 mmol/L (3.5-5.1) H 07/12/25 05:34
Chloride 105 mmol/L (98-107) 07/12/25 05:34
Carbon Dioxide 17 mmol/L (22-30) L 07/12/25 05:34
BUN 169 mg/dl (9-20) H* 07/12/25 05:34
Creatinine 10.6 mg/dL (0.7-1.3) H* 07/12/25 05:34
eGFR 4.48 07/12/25 05:34
Glucose 128 mg/dl (70-99) H 07/12/25 05:34
Calcium 6.3 mg/dl (8.4-10.2) L* 07/12/25 05:34
Phosphorus 10.2 mg/dl (2.5-4.5) H 07/12/25 05:34
Ymb-F-Iyetazvqmdj Pept 3020 pg/ml 07/11/25 22:05
Albumin 3.5 g/dl (3.5-5.0) 07/12/25 05:34
Physical Exam
General: Awake, Alert, Oriented, AOx3, No Distress and Nontoxic
HEENT: EOMI, Anicteric, Facial Symmetry and Other (dry mucous mem)
Respiratory: Normal Excursion, Nonlabored Respirations and Other (decreased BS)
Cardiac: S1/S2 and Regular Rate/Rhythm
Breast: Deferred by me
Abdomen: Soft, Nontender, Nondistended and Other (obese abd)
Rectal: Deferred by Provider
Musculoskeletal: No Cyanosis and No Edema
Skin: No Rash
Neuro: Nonfocal/Grossly Intact
Psych: Mood/afflect pleasant and Appropriate
Data Reviewed
-
Labs: Labs Reviewed by me, Discussed with Physician, Discussed with Nurse and Discussed with Patient
Assessment/Plan
-
IMP:
LYNN on CKD - ? Stage
Anion Gap Metabolic Acidosis secondary to the above
Hyperkalemia
Acute Hypoxemic Respiratory Insufficiency
Chronic CHfpHF
Diverticulitis / Colitis
Constipation
Leukocytosis with L Shift
ASCVD - h/o CABG
P Atrial Fibrillation
DM-II with Peripheral Neuropathy
Normocytic Anemia
Hypothyroidism
BPH
Obesity due to excess calories
Hypocalcemia
Hypomagnesemia
Hyperphosphatemia
PLan:
A/w sob, recent admit at [place] and treated for new CHF d/c on lasix
LYNN-no baseline labs to compare
check urine studies, keep emmanuel seem non oliguric , CT no hydro but mild bilat cortical loss suggest underlying CKD
sig azotemia noted, not overtly uremic
likely need HD in next 24-48hrs if no improvement
await for baseline labs and records
hyperkalemia improving s/p IVf and lokelma
met acidosis is also improving with bicarb IVF -would cont fluids still
BNP is high however clinically he looks dry, CXR no cHf
If no improvement of sob agree with RHC
hold lasix and avoid nephrotoxins, ozempic
BPs are stable with Bb
anemia-prn transfusion , fe sat 19% benefit from IV fe course, check stool occult
hypocalcemia-replace, check PTH and vit D
replace mg
hyperphosphatemia-follow labs may need binder
meds dose renally
CC time spent 60min
d/w pt in detail, would not want HD however will not refuse HD if needed
d/w pt and cards
d/w nursing
[2025-07-12 12:09] LABS: Glucose - Point of Care 185 mg/dl (70-99)
--- NOTE | 2025-07-12 12:26 | W.PN.UPDATE ---
Update Note
Progress Note Update
Seen and examined independent of overnight physician. State of shortness of breath at home.
General: in nad, conversant
HEENT: Other (Very thick neck. No appreciable JVD.)
Respiratory: Other (Decreased at both bases. No wheezes / rales / rhonchi.)
Cardiac: S1/S2, Irregular Rhythm and Murmur (II/ DEISY)
GI: Other (Abdomen is obese and distended. No focal tenderness / rebound / guarding. Pos BS.)
Musculoskeletal: No Clubbing, No Cyanosis, No Edema and Other (R BKA. No peripheral pitting edema R thigh or LLE.)
Neuro: AO x 3
A/P: Patient is an 80y M with PMH significant for ASCVD, CHF and DM-II who presents to ED complaining of SOB with exertion.
LYNN on CKD - ? Stage
Anion Gap Metabolic Acidosis secondary to the above
Hyperkalemia
- Whitney to be placed now with marked LYNN, hyperkalemia, BPH and constipation.
- Monitor I/Os.
- Volume status is difficult to assess. Newly started on Lasix 80mg daily about 2 months ago.
- No significant edema on exam, but significant exertional dyspnea /
- Would hold further diuretic for now.
- IVFs with supplemental bicarb at low rate.
- Send to [facility] for most recent records re: baseline renal function, recent Echo, etc.
- Nephrology evaluation for additional recommendations.
- ? worsening cardiorenal syndrome. Seems to be heading towards dialysis.
- Hold or adjust most of his medications acutely.
- Monitor for improvement in renal function, acidosis, etc.
Acute Hypoxemic Respiratory Insufficiency
- Patient with persistent / progressive exertional dyspnea x [address]
- CT / CXR with ground glass / mosaic changes primarily.
- Check ABGs now.
- Body habitus consistent with ALVIN / OHV and may benefit from NIPPV.
- Continue supportive care with O2 supplementation, etc.
- Cardiovascular evaluation as noted below. Obtain and review most recent records from [facility].
- Consider Pulmonary evaluation if no clear etiology for hypoxemia is identified.
Chronic HF - Unknown Type
- Despite exertional dyspnea / hypoxemia, patient does not appear grossly volume overloaded on exam, CXR, etc.
- Hold further diuretic for now.
- Check Echo. Obtain prior records from [facility].
- CHF is a recent diagnosis as of last [facility] admission about 2 months ago.
- ?RHC. Will make NPO PMN tenatively for now.
Diverticulitis / Colitis
Constipation
Leukocytosis with L Shift
- Patient reports no BM in [address] with sigmoid inflammation - colitis v diverticulitis.
- Good results in ED after Lokelma dose.
- Continue bowel regimen.
- IV abx for now with ceftriaxone and metronidazole.
- Follow for improvement in leukocytosis. Monitor for any fever or new symptoms.
ASCVD
- h/o CABG x2. Patient reports cath done during most recent hospitalization that showed 'clean coronaries'.
- ASA daily. Monitor for any chest pain / etc.
- Follow troponin to peak - fairly mild elevation given extent of renal impairment.
Atrial Fibrillation - Unknown Type
- Stable. Hold amiodarone acutely given prolonged QT.
- Hold anticoagulation with anemia. Unclear baseline. Monitor for luminal bleeding. Holding also for procedure requirement. If hemoglobin stable next 24 hours can start heparin infusion
- Continue metoprolol with holding parameters.
- Monitor on telemetry. Cardio eval / prior records as noted above.
DM-II with Peripheral Neuropathy
- Patient on very high doses of insulin. Will decrease acutely given poor renal function.
- Follow and cover with additional SSI as needed.
- Adjust dose for adequate glycemic control.
- Update A1C.
- Hold gabapentin and Lyrica (both?) acutely.
- Hold Ozempic.
Normocytic Anemia
- Unknown etiology, chronicity, etc. Review prior records once available.
- Heme test stools. Check iron studies and replete if needed.
- Follow H&H for changes.
Hypothyroidism
- TSH is elevated at 11.9. Increase T4 supplementation to 150mcg for now.
BPH
- Whitney placed acutely given LYNN, hyperkalemia, etc.
- Hold tadalafil. Start tamsulosin.
- Follow I/Os. TOV prior to discharge.
Obesity due to excess calories
- Affects all aspects of care.
- See above re: ALVIN / OHV.
- Encourage healthy diet and exercise as tolerated with goal of weight loss.
Hypocalcemia
Replete for now
DVT Prophylaxis: Subcut Heparin
Code Status: Full
d/w with cardiology/nephrology
Discussed with spouse over the phone in detail
[2025-07-12] MEDS: NOVOLOG FLEXPEN-MODERATE RESISTANCE 1 UNITS SC (13:56)
[2025-07-12] MEDS: CALCIUM GLUCONATE 100 IV ×2 (14:11→18:32)
[2025-07-12 15:25] LABS: Urine Character Clear (Clear)
[2025-07-12 15:34] LABS: Urine Squamous Cell 0-2 /LPF (Few)
[2025-07-12 15:35] LABS: Urine Red Blood Cell 26-30 /HPF (0-2); Urine White Cell 16-20 /HPF (0-5)
[2025-07-12 16:03] LABS: Body Fluid for Eosinophils No Eosinophils seen
--- NOTE | 2025-07-12 16:06 | CARDSERVLU ---
Echocardiogram with Lumason completed after protocol screening completed. Allergies verified.
Patent IV site: _existing 22P LW____
IV site flushed with 0.9% NaCl pre and post administration.
Diluted bolus method utilized to enhance visualization of ventricular swanson.
Total volume given: __4.0__ mL in divided doses under direction echosonographer.
Patient tolerated all procedures well without complications.
--- NOTE | 2025-07-12 16:49 | CM ---
I.A: Completed By DIANA Jimenez
Patient lives with his in a [address] with 0 STI and 14 STI. DME: Walking, No other DME.
PCP: Dr. Elizabeth Nolasco
[facility]
Patient has transport home. PLAN: Home VN/ PT vs. No Needs.
[2025-07-12 16:52] LABS: Glucose - Point of Care 100 mg/dl (70-99)
[2025-07-12 17:23] LABS: ALT (SGPT) 30 U/L (0-50); AST (SGOT) 32 U/L (17-59); Albumin 3.1 g/dl (3.5-5.0); Alkaline Phosphatase 78 U/L (38-126); Calcium 6.4 mg/dl (8.4-10.2); Carbon Dioxide 16 mmol/L (22-30); Chloride 103 mmol/L (98-107); Estimated Creatinine Clearance 8 ml/min; Glucose 90 mg/dl (70-99); Potassium 4.7 mmol/L (3.5-5.1); Sodium 135 mmol/L (135-145); Total Protein 6.0 g/dl (6.3-8.2); eGFR 4.63
[2025-07-12 17:42] LABS: Blood Urea Nitrogen 168 mg/dl (9-20)
--- NOTE | 2025-07-12 19:32 | PTCARENOTE ---
Assumed care ot pt this am, he is AKHIOK, alert and oriented and makes his needs known. NSR on monitor throughout the day, ECHO completed, pt educated for CHF and plan for cardiac cath in am. He verbalizes understanding but speaks over staff and needs
reenforcement of all information.
[2025-07-12] MEDS: SENOKOT 17.2 MG PO (20:17)
[2025-07-12] MEDS: LIPITOR 80 MG PO (20:17)
[2025-07-12 22:07] LABS: Glucose - Point of Care 166 mg/dl (70-99)
--- NOTE | 2025-07-12 23:35 | PTCARENOTE ---
patient desating into low 80s while sleeping. Placed patient on 2L NC. assessment and vitals as charted. patient resting in bed with call stoddard in reach.
[2025-07-13] VITALS (29 sets, daily range): BP systolic 66–147; BP diastolic 47–114; BMI 34.5
[2025-07-13] MEDS: SODIUM BICARBONATE 1150 MEQ IV ×2 (00:40→20:11)
[2025-07-13] MEDS: FLAGYL 500 MG 100 IV (01:47)
[2025-07-13] MEDS: ROCEPHIN 1000 MG IV (05:00)
[2025-07-13] MEDS: STERILE WATER FOR INJECTION 10 ML IV (05:01)
[2025-07-13] MEDS: SYNTHROID 150 MCG PO (05:01)
[2025-07-13 05:48] LABS: Hematocrit 20.8 % (39.0-52.0); Hemoglobin 6.6 g/dL (13.0-18.0); Mean Corp Hgb Conc. 31.7 g/dL (33.0-37.0); Mean Corpuscular Volume 96.7 fL (80.0-94.0); Nucleated Red Blood Cells % 0 % (-); Platelet Count 120 10^3/uL (130-400); Red Cell Dist. Width 15.9 % (11.5-14.5)
--- NOTE | 2025-07-13 06:01 | W.PN.UPDATE ---
Addendum entered and electronically signed by KATYA Hanson 07/13/25 06:55:
calcium repleted
Original Note:
Update Note
Progress Note Update
hgb level dropped this am from 7.6 to 6.6 will repeat to confirm. Stat h&h and hemetest ordered. Vital signs within the baseline.
[2025-07-13 06:03] LABS: Calcium 6.7 mg/dl (8.4-10.2); Carbon Dioxide 18 mmol/L (22-30); Chloride 104 mmol/L (98-107); Estimated Creatinine Clearance 8 ml/min; Glucose 41 mg/dl (70-99); Magnesium 1.7 mg/dl (1.6-2.3); Potassium 4.4 mmol/L (3.5-5.1); Sodium 139 mmol/L (135-145); eGFR 4.69
[2025-07-13] MEDS: DEXTROSE 50% SYRINGE 12.5 GRAMS IV ×2 (06:08→13:48)
[2025-07-13 06:12] LABS: Blood Urea Nitrogen 174 mg/dl (9-20)
[2025-07-13 06:17] LABS: Vitamin D, 25-OH*** 25.2 ng/mL (30-80)
[2025-07-13 06:34] LABS: Glucose - Point of Care 160 mg/dl (70-99)
--- NOTE | 2025-07-13 06:35 | PTCARENOTE ---
patient morning labs resulted in hemaglobin 6.6 and glucose 41. Patient shakey and drowsy. IV dextrose given per protocol. Recheck after 15 mins and glucose is 160. TT MEDICAL RESEARCH SCIENTIST. MEDICAL RESEARCH SCIENTIST ordered repeat H&H. Awaiting results. Heme stool tests also ordered.
continuing to monitor. call stoddard in reach.
[2025-07-13 06:57] LABS: Hematocrit 18.4 % (39.0-52.0); Hemoglobin 6.3 g/dL (13.0-18.0)
[2025-07-13] MEDS: CALCIUM GLUCONATE 100 IV (08:01)
[2025-07-13 08:40] LABS: Glucose - Point of Care 89 mg/dl (70-99)
[2025-07-13] MEDS: FLOMAX 0.4 MG PO (08:47)
[2025-07-13] MEDS: LOW STRENGTH ASPIRIN 81 MG PO (08:47)
[2025-07-13] MEDS: LOPRESSOR 25 MG PO ×2 (08:47→20:12)
[2025-07-13] MEDS: NOVOLOG FLEXPEN-MODERATE RESISTANCE SC ×3 (08:48→17:30)
[2025-07-13] MEDS: MIRALAX 17 GRAMS PO (08:50)
[2025-07-13] MEDS: HEPARIN 5000 UNITS SC ×2 (09:31→23:02)
--- NOTE | 2025-07-13 09:53 | W.PN.NEPH.PH ---
Today's Communication / Plan
-
HD
Assessment/Plan
-
IMP:
LYNN on CKD - ? Stage
Anion Gap Metabolic Acidosis secondary to the above
Hyperkalemia
Acute Hypoxemic Respiratory Insufficiency
Chronic CHfpHF
Diverticulitis / Colitis
Constipation
Leukocytosis with L Shift
ASCVD - h/o CABG
P Atrial Fibrillation
DM-II with Peripheral Neuropathy
Normocytic Anemia
Hypothyroidism
BPH
Obesity due to excess calories
Hypocalcemia
Hypomagnesemia
Hyperphosphatemia
PLan:
start HD
temp HD CVC for now
transfuse PRBC
replete calcium
high risk situation
d/w patient and
-
-
Date of Service: July 13, 2025
CC / HPI / ROS
-
Chief Complaint:
LYNN
History of Present Illness:
LYNN/Cr unchanged 10.2
BUN up 174
acidosis persists
calcium 6.7
Hgb 6.3
Review of Systems:
no CP/SOB
tremor
Labs
-
Labs:
WBC 10.6 10^3/uL (4.8-10.8) 07/13/25 05:16
RBC 2.15 10^6/uL (4.70-6.10) L 07/13/25 05:16
Hgb 6.3 g/dL (13.0-18.0) L* 07/13/25 06:19
Hct 18.4 % (39.0-52.0) L* 07/13/25 06:19
Plt Count 120 10^3/uL (130-400) L 07/13/25 05:16
Sodium 139 mmol/L (135-145) 07/13/25 05:15
Potassium 4.4 mmol/L (3.5-5.1) 07/13/25 05:15
Chloride 104 mmol/L (98-107) 07/13/25 05:15
Carbon Dioxide 18 mmol/L (22-30) L 07/13/25 05:15
BUN 174 mg/dl (9-20) H* 07/13/25 05:15
Creatinine 10.2 mg/dL (0.7-1.3) H* 07/13/25 05:15
eGFR 4.69 07/13/25 05:15
Glucose 41 mg/dl (70-99) L* 07/13/25 05:15
Calcium 6.7 mg/dl (8.4-10.2) L* 07/13/25 05:15
Calcium 6.7 mg/dl (8.4-10.2) L* 07/13/25 05:15
Phosphorus 10.2 mg/dl (2.5-4.5) H 07/12/25 05:34
Mnk-T-Gewrkkbvunz Pept 3020 pg/ml 07/11/25 22:05
Albumin 3.1 g/dl (3.5-5.0) L 07/12/25 16:41
Physical Exam
-
Vital Signs:
Vital Signs
Temp Pulse Resp BP Pulse Ox
97.7 F 68 12 132/68 85
07/13/25 07:00 07/13/25 06:30 07/13/25 06:30 07/13/25 06:00 07/13/25 06:30
Cardiovascular:: Regular rate and rhythm
Respiratory:: Bilateral: Coarse
Lung Excursion:: Normal
Abdomen:: Nontender and Soft
Bowel Sounds:: Normal
Extremity Edema:: None: Bilateral:
[2025-07-13] MEDS: LANTUS SC (10:51)
[2025-07-13 12:00] LABS: Glucose - Point of Care 113 mg/dl (70-99)
--- NOTE | 2025-07-13 13:36 | W.PN.HOSP.TC ---
Today's Communication/Plan
-
transfuse 1u prbc
adjust insulin
Plan for HD today
RHC-defer to cards
awaiting records
Assessment / Plan
Assessment / Plan
General: in nad, conversant
HEENT: Other (Very thick neck. No appreciable JVD.)
Respiratory: Other (Decreased at both bases. No wheezes / rales / rhonchi.)
Cardiac: S1/S2, Irregular Rhythm and Murmur (II/ DEISY)
GI: Other (Abdomen is obese and distended. No focal tenderness / rebound / guarding. Pos BS.)
Musculoskeletal: No Clubbing, No Cyanosis, No Edema and Other (R BKA. No peripheral pitting edema R thigh or LLE.)
Neuro: AO x 3
A/P: Patient is an 80y M with PMH significant for ASCVD, CHF and DM-II who presents to ED complaining of SOB with exertion.
LYNN on CKD - ? Stage
Anion Gap Metabolic Acidosis secondary to the above
Hyperkalemia
- Monitor I/Os.
- Volume status is difficult to assess.
- IVFs with supplemental bicarb at low rate.
- Send to [facility] for most recent records re: baseline renal function- still pending
- Not much improvement in patient creatinine. BUN remains elevated.
- Plan to start hemodialysis today. [facility] for HD catheter.
- d/w with nephrology
Normocytic Anemia
- Unknown etiology, chronicity, etc. Review prior records once available.
- Heme test stools pending but so far no active luminal bleeding noted
- Follow H&H for changes. Hemoglobin 6.3. 1 unit of PRBC ordered.
Acute Hypoxemic Respiratory Insufficiency
- Patient with persistent / progressive exertional dyspnea x 2 [address] more[address]
- CT / CXR with ground glass / mosaic changes primarily.
- Body habitus consistent with ALVIN / OHV
- Continue supportive care with O2 supplementation, etc.
- Cardiovascular evaluation as noted below. Obtain and review most recent records from [facility].
Chronic HFpEF
- Despite exertional dyspnea / hypoxemia, patient does not appear grossly volume overloaded on exam, CXR, etc.
- Hold further diuretic for now.
- CHF is a recent diagnosis as of last [facility] admission about 2 months ago.
- Unclear if RHC needed as plan to start HD. Defer to cards.
Diverticulitis / Colitis
Constipation
Leukocytosis with L Shift
- Patient reports no BM in [address] with sigmoid inflammation - colitis v diverticulitis.
- Good results in ED after Lokelma dose.
- Continue bowel regimen.
- IV abx for now with ceftriaxone and metronidazole.
- Follow for improvement in leukocytosis. Monitor for any fever or new symptoms.
ASCVD
- h/o CABG x2. Patient reports cath done during most recent hospitalization that showed 'clean coronaries'.
- ASA daily. Monitor for any chest pain / etc.
- Follow troponin to peak - fairly mild elevation given extent of renal impairment.
Paroxysmal atrial fibrillation
- Stable. Hold amiodarone acutely given prolonged QT.
- Hold anticoagulation with anemia. Unclear baseline. Monitor for luminal bleeding. Holding also for procedure requirement. If hemoglobin stable next 24 hours can consider start heparin infusion
- Continue metoprolol with holding parameters.
- Monitor on telemetry. Cardio eval / prior records as noted above.
DM-II with Peripheral Neuropathy
- Patient on very high doses of insulin. Will decrease acutely given poor renal function.
- Follow and cover with additional SSI as needed.
- Adjust dose for adequate glycemic control.
- Unclear a1c accurate with anemia, elevated cr.
- Hold gabapentin and Lyrica (both?) acutely.
- Hold Ozempic.
- DC a.m. Lantus. Decrease nocturnal Lantus dose. Episodes of hypoglycemia noted.
Hypothyroidism
- TSH is elevated at 11.9. Increase T4 supplementation to 150mcg for now.
BPH
- Whitney placed acutely given LYNN, hyperkalemia, etc.
- Hold tadalafil. Start tamsulosin.
- Follow I/Os. TOV prior to discharge.
Obesity due to excess calories
- Affects all aspects of care.
- See above re: ALVIN / OHV.
- Encourage healthy diet and exercise as tolerated with goal of weight loss.
Hypocalcemia
Replete for now
DVT Prophylaxis: Subcut Heparin
Code Status: Full
d/w with nephrology
d/w with spouse at bedside
Anticipated Discharge: > 48 hours
Subjective/Interval History
-
Date of Service: July 13, 2025
agreed for prbc
states he is hungry
Objective Data
-
Labs:
Laboratory Results
07/13/25 07/13/25 07/13/25
05:15 05:15 05:16
WBC 10.6
Hgb 6.6 L*
Hct 20.8 L*
Plt Count 120 L
Sodium 139
Potassium 4.4
Chloride 104
Carbon Dioxide 18 L
BUN 174 H*
Creatinine 10.2 H*
Glucose 41 L*
Calcium 6.7 L* 6.7 L*
07/13/25
06:19
WBC
Hgb 6.3 L*
Hct 18.4 L*
Plt Count
Sodium
Potassium
Chloride
Carbon Dioxide
BUN
Creatinine
Glucose
Calcium
Vital Signs:
Vital Signs
Temp Pulse Resp BP Pulse Ox
97.9 F 72 24 130/67 95
07/13/25 11:35 07/13/25 10:00 07/13/25 10:00 07/13/25 10:00 07/13/25 08:30
I&O
12/10/0507/13/25 07/14/25
06:59 06:59 06:59
Intake Total 480 / 480 250 / 250
Output Total 1350 / 1350 1350 / 1350
Balance -870 / -870 -1100 / -1100
Data Reviewed
-
Total Time Spent with Patient (in minutes): 55
[2025-07-13 13:55] LABS: Glucose - Point of Care 57 mg/dl (70-99)
[2025-07-13] MEDS: FLAGYL 500 MG IV (14:00)
[2025-07-13 14:18] LABS: Glucose - Point of Care 113 mg/dl (70-99)
--- NOTE | 2025-07-13 14:28 | PTCARENOTE ---
NPO all day, accu checks completed in range until now pt slurring words, drowsy accu check 57, D50 1/2 amp given now 113. PRBC initiated. IVF infusing. Discussed situation with blood bank laboratory technologist- not taking now ok to go to [facility] - Report to ALICIA - RN
will escort with blood product.
[2025-07-13] MEDS: HEPARIN SC (16:00)
--- NOTE | 2025-07-13 16:37 | CM ---
F/U: Patient is getting transfused, adjusting insulin, HD, PT/OT no recommendation yet- Case Management to follow. PLAN: Home vs. SNF.
--- NOTE | 2025-07-13 17:10 | PTCARENOTE ---
Escorted from [facility] back to room. Remains on 3L NC. Right neck HD cath CDI. PRBC still infusing - almost completed. IVF infusing. Whitney with adequate output. Diet ordered and dinner order placed. Starting HD at this time.
[2025-07-13 17:30] LABS: Glucose - Point of Care 66 mg/dl (70-99)
[2025-07-13] MEDS: MANNITOL 25% 12.5 GRAMS IV ×2 (17:35→18:39)
[2025-07-13 17:48] LABS: Glucose - Point of Care 79 mg/dl (70-99)
[2025-07-13 19:50] LABS: Glucose - Point of Care 107 mg/dl (70-99)
[2025-07-13] MEDS: LIPITOR 80 MG PO (20:12)
[2025-07-13] MEDS: LANTUS 0.08 UNITS SC (22:15)
[2025-07-13] MEDS: SENOKOT 17.2 MG PO (22:15)
[2025-07-13 22:24] LABS: Glucose - Point of Care 162 mg/dl (70-99)
--- NOTE | 2025-07-13 22:43 | PTCARENOTE ---
Addendum entered by Malika Nance RN 07/14/25 05:39:
Pt has the tendency to become confuse at night. AAOx1. anxious and restless. Pt had about 4 BM's. pt was redirectable.
Original Note:
Pt AAox3, forgetful at times. Anxious at times. at bedside. HD finished. NSR int he monitor. Lung sounds are diminished w/ inspiratory wheezing. 96% in 3L. Adb round and obese. Whitney cath intact/
[2025-07-14] VITALS (27 sets, daily range): BP systolic 104–153; BP diastolic 49–128; BMI 34.5
[2025-07-14] MEDS: FLAGYL 500 MG 100 IV ×2 (02:55→14:50)
[2025-07-14 03:23] LABS: Glucose - Point of Care 89 mg/dl (70-99)
[2025-07-14] MEDS: TYLENOL 650 MG PO (05:02)
[2025-07-14] MEDS: SYNTHROID 150 MCG PO (05:03)
[2025-07-14] MEDS: ROCEPHIN 1000 MG IV (05:03)
[2025-07-14] MEDS: STERILE WATER FOR INJECTION 10 ML IV (05:03)
[2025-07-14 05:12] LABS: Glucose - Point of Care 79 mg/dl (70-99)
[2025-07-14 05:32] LABS: Hematocrit 21.7 % (39.0-52.0); Hemoglobin 7.4 g/dL (13.0-18.0); Mean Corp Hgb Conc. 34.1 g/dL (33.0-37.0); Mean Corpuscular Volume 91.9 fL (80.0-94.0); Nucleated Red Blood Cells % 0 % (-); Platelet Count 100 10^3/uL (130-400); Red Cell Dist. Width 16.2 % (11.5-14.5)
[2025-07-14 06:14] LABS: Blood Urea Nitrogen 108 mg/dl (9-20); Calcium 6.7 mg/dl (8.4-10.2); Carbon Dioxide 29 mmol/L (22-30); Chloride 101 mmol/L (98-107); Estimated Creatinine Clearance 12 ml/min; Glucose 75 mg/dl (70-99); Magnesium 1.7 mg/dl (1.6-2.3); Potassium 4.1 mmol/L (3.5-5.1); Sodium 137 mmol/L (135-145); eGFR 7.90
[2025-07-14] MEDS: LOW STRENGTH ASPIRIN 81 MG PO (08:02)
[2025-07-14] MEDS: HEPARIN 5000 UNITS SC ×2 (08:02→17:46)
[2025-07-14] MEDS: FLOMAX 0.4 MG PO (08:02)
[2025-07-14] MEDS: MIRALAX PO ×2 (08:02→08:30)
[2025-07-14] MEDS: LOPRESSOR 25 MG PO ×2 (08:02→20:13)
--- NOTE | 2025-07-14 10:17 | PTCARENOTE ---
NPO status maintained, IVF-SW/Bicarb at 60 infusing. c/o nausea this am vomited small amt brown emesis- Feels better since. OOB to chair with prothesis this am- min assist 2. Report to laborer filter plant- lab staff escorted in bed on tele.
--- NOTE | 2025-07-14 10:32 | W.PN.CD ---
Today's Communication / Plan
-
RHC.
Further recommendations after clarification of filling pressures.
Impression / Plan
-
Impression/Plan: 80M with CAD (prior CABG), heart failure (type unknown), atrial fibrillation (type unknown, on rivaroxaban), NSVT, hypertension, hypercholesterolemia, CKD stage unknown, hypothyroidism, and type 2 diabetes mellitus who presented to
the emergency department the chief complaint of shortness of breath, found to be in hypoxic respiratory failure and acute on chronic kidney failure, mild diverticulitis/colitis.
Primary flag signaler: Dr. Salmeron ([facility])
#Shortness of breath
-Acute, stable.
-Given his BMI consider ALVIN evaluation.
-Records requested from primary flag signaler.
-Echocardiogram today
-RHC requested for clarification of volume status. This was deferred yesterday but we will proceed today.
LYNN on CKD
-CKD stage unknown.
-Creatinine 10.9 on admission.
-Nephrology following.
-HD catheter placed, TRACK MECHANIC started. BUN/Cr down to 108/6.6.
#HFpEF
-Acute on chronic.
-Exam is unrevealing given body habitus.
-Trend daily weight, I/O, and BMP.
-RHC for clarification of filling pressures.
#Atrial fibrillation
-Type unknown.
-Currently in accelerated junctional rhythm.
-Rate/rhythm control with metoprolol. Home amiodarone on hold.
-CHADS2-Vasc = 6-8 (CHF, HTN, Age x2, DM, possible CVA?, vascular disease).
-Rivaroxaban on hold given renal dysfunction.
#CAD
-Chronic, stable.
-s/p CABG x2.
-Denies chest pain, not on ASA as he is on Xarelto.
-[facility] 03/2025: All bypass grafts were patent (Dr. Dick).
#NSVT, amiodarone on hold.
#Type 2 diabetes mellitus, HgbA1c pending, per primary
#Obesity, BMI 34, on Ozempic
Subjective/Interval History:
I attempted to see the patient yesterday but he was off the floor for HD catheter placement.
Anemia has worsened, transfusion ordered. Anemia responded appropriately.
Weight down 3.3 kg.
SaO2 = 98% on 3LNC.
BUN/Cr up to 174/10.2 prior to HD, now 108/6.6.
TSH = 11.9.
DATA:
TTE, 07/12/2025:
SUMMARY
1. Normal biventricular size and systolic function without regional wall motion abnormality. LVEF 55-60%.
2. Mild concentric left ventricular hypertrophy.
3. Stage II diastolic dysfunction suggestive of abnormal relaxation and increased filling pressures.
4. Aortic sclerosis.
5. Mild tricuspid regurgitation with normal PASP (29 mmHg). PASP may be underestimated in the setting of incomplete TR envelope.
6. No prior study available for comparison.
Physical Exam
Vital Signs/Labs
Vital Signs
Temp Pulse Resp BP Pulse Ox
36.6 C 70 12 132/78 98
07/14/25 07:45 07/14/25 06:00 07/14/25 06:00 07/14/25 04:10 07/14/25 08:35
07/12/25 07/13/25 07/14/25
11:59 11:59 11:59
Actual Weight 122.515 kg 121.733 kg 121.733 kg
07/14/25 05:10
07/14/25 05:10
Magnesium 1.7 mg/dl (1.6-2.3) 07/14/25 05:10
Free T4 1.19 ng/dl (0.78-2.19) 07/11/25 22:05
07/11/25
22:05
Jci-N-[id number] Pept 3020
LAB Results
07/11/25 07/12/25 07/12/25
22:05 05:34 10:15
Troponin I 0.026 0.024 Cancelled
07/12/25
16:15
Troponin I Cancelled
Physical Exam
Constitutional: No acute distress and Comfortable
EENT: Anicteric and Moist mucous membranes
Cardiovascular: Rhythm & rate is regular, Pedal edema is absent (Right lower extremity is surgically absent below the knee.), JVD pressure is normal, S1S2 is normal and Murmur/rub/gallop absent
Respiratory: Respiratory effort normal and Other (Decreased throughout.)
GI: Soft, Distention absent, Flat, Non tender and Normal bowel sounds
Neuro/Psych: AO x 3
Data Reviewed
-
Date of Service: July 14, 2025
Medical Decision Making: Reviewed Test Results, Independent Historian Assessment and Test Interpretation
EKG: Tracing Personally Visualized and interpreted and Report Reviewed by me
Echo: Tracing Personally Visualized and interpreted and Report Reviewed by me
X-Ray/CT/US/MRI/NUC/PET: Image Personally Visualized and interpreted and Report Reviewed by me
Labs: Labs Reviewed by me
Old Records: Reviewed
[2025-07-14] MEDS: ZOFRAN 4 MG IV ×2 (11:30→18:09)
[2025-07-14 11:40] LABS: Glucose - Point of Care 95 mg/dl (70-99)
--- NOTE | 2025-07-14 12:00 | PTCARENOTE ---
REturned from mobile lab technician, site checks as directed.
[2025-07-14] MEDS: CALCIUM GLUCONATE 10% INJECTION 130 MG IV (12:06)
[2025-07-14] MEDS: MANNITOL 25% 12.5 GRAMS IV ×2 (12:55→14:06)
--- NOTE | 2025-07-14 13:02 | W.PN.HOSP.TC ---
Today's Communication/Plan
-
wean o2 as tolerated
HD today
IV abx for now
RHC results pending
OOB/PT
Assessment / Plan
Assessment / Plan
General: in nad, conversant
HEENT: Other (Very thick neck. No appreciable JVD.)
Respiratory dec bs
Cardiac: S1/S2, regular Rhythm and Murmur (II/ DEISY)
GI: Other (Abdomen is obese and distended. No focal tenderness / rebound / guarding. Pos BS.)
Musculoskeletal: No Clubbing, No Cyanosis, No Edema and Other (R BKA. No peripheral pitting edema R thigh or LLE.)
Neuro: AO x 3
-Whitney with yellow color urine noted
A/P: Patient is an 80y M with PMH significant for ASCVD, CHF and DM-II who presents to ED complaining of SOB with exertion.
LYNN on CKD - ? Stage
Anion Gap Metabolic Acidosis secondary to the above
Hyperkalemia
- Monitor I/Os.
- Volume status is difficult to assess.
- Send to [facility] for most recent records re: baseline renal function- still pending
- Not much improvement in patient creatinine. BUN remains elevated.
- Started on HD on 07/13. BUN/cr remains elevated.
- Bicarb gtt per nephrology.
- nephro following. HD today
Normocytic Anemia
- Unknown etiology, chronicity, etc. Review prior records once available.
- Heme test stools pending but so far no active luminal bleeding noted
- Follow H&H for changes. Hemoglobin 7.4. s/p 1 unit of PRBC.
Acute Hypoxemic Respiratory Insufficiency
- Patient with persistent / progressive exertional dyspnea x 2 [address] more[address]
- CT / CXR with ground glass / mosaic changes primarily.
- Body habitus consistent with ALVIN / OHV
- Continue supportive care with O2 supplementation, etc.
- CXR in am
Chronic HFpEF
- Despite exertional dyspnea / hypoxemia, patient does not appear grossly volume overloaded on exam, CXR, etc.
- Hold further diuretic for now.
- CHF is a recent diagnosis as of last [facility] admission about 2 months ago.
- Plan for RHC. If volume overload. HD should help.
Diverticulitis / Colitis
Constipation
Leukocytosis with L Shift
- Patient reports no BM in [address] with sigmoid inflammation - colitis v diverticulitis.
- Good results in ED after Lokelma dose.
- Continue bowel regimen.
- IV abx for now with ceftriaxone and metronidazole.
- Follow for improvement in leukocytosis. Monitor for any fever or new symptoms.
ASCVD
- h/o CABG x2. Patient reports cath done during most recent hospitalization that showed 'clean coronaries'.
- ASA daily. Monitor for any chest pain / etc.
- Follow troponin to peak - fairly mild elevation given extent of renal impairment.
Paroxysmal atrial fibrillation
- Stable. Hold amiodarone acutely given prolonged QT.
- Hold anticoagulation with anemia. Unclear baseline. Monitor for luminal bleeding. Holding also for procedure requirement. If hemoglobin stable next 24 hours can consider start heparin infusion
- Continue metoprolol with holding parameters.
- Monitor on telemetry. Cardio eval / prior records as noted above.
DM-II with Peripheral Neuropathy
- Patient on very high doses of insulin. Will decrease acutely given poor renal function.
- Follow and cover with additional SSI as needed.
- Adjust dose for adequate glycemic control.
- Unclear a1c accurate with anemia, elevated cr.
- Hold gabapentin and Lyrica (both?) acutely.
- Hold Ozempic.
- DC a.m. Lantus. Decrease nocturnal Lantus dose. Adjust insulin based on POC/diet tolerance/Cr etc
Hypothyroidism
- TSH is elevated at 11.9. Increase T4 supplementation to 150mcg for now.
BPH
- Whitney placed acutely given LYNN, hyperkalemia, etc.
- Hold tadalafil. Start tamsulosin.
- Follow I/Os. TOV prior to discharge.
Obesity due to excess calories
- Affects all aspects of care.
- See above re: ALVIN / OHV.
- Encourage healthy diet and exercise as tolerated with goal of weight loss.
Hypocalcemia
Replete for now
DVT Prophylaxis: Subcut Heparin
Code Status: Full
Anticipated Discharge: > 48 hours
Subjective/Interval History
-
Date of Service: July 14, 2025
seen post RHC
remains on oxygen
states feeling better
Objective Data
-
Labs:
Laboratory Results
07/14/25
05:10
WBC 6.6
Hgb 7.4 L
Hct 21.7 L
Plt Count 100 L
Sodium 137
Potassium 4.1
Chloride 101
Carbon Dioxide 29
BUN 108 H*
Creatinine 6.6 H*
Glucose 75
Calcium 6.7 L*
Vital Signs:
Vital Signs
Temp Pulse Resp BP Pulse Ox
97.9 F 70 12 132/78 98
07/14/25 11:51 07/14/25 06:00 07/14/25 06:00 07/14/25 04:10 07/14/25 08:35
I&O
07/13/25 07/14/25 07/15/25
06:59 06:59 06:59
Intake Total 250 / 250 2810 / 2810
Output Total 1350 / 1350 2500 / 2500
Balance -1100 / -1100 310 / 310
Data Reviewed
-
Total Time Spent with Patient (in minutes): 55
--- NOTE | 2025-07-14 13:07 | ITS.CL.CATH ---
Principal Systems Engineer - Catheterization
Cardiac Catheterization
Procedure Report:
RIGHT HEART CATHETERIZATION
Date of Procedure: 07/14/2025
Referring: Luis Armando Salas M.D.
INDICATION: End-stage renal disease, assessment of volume status.
ACCESS:
5 Sammarinese right antecubital vein using a previously placed IV.
CATHETERS:
5 Sammarinese balloon with.
PROCEDURE:
An IV was placed by the nursing staff in the right antecubital fossa. The patient was prepped and draped in standard sterile fashion, including copious cleaning of the IV and IV site. The area around the IV was anesthetized with 1% lidocaine. A 5
Sammarinese sheath was inserted into the basilic vein. A 5 Sammarinese balloon wedge catheter was advanced through the sheath into the superior vena cava. An SVC oxygen saturation was drawn. The balloon wedge catheter was advanced into the pulmonary artery
and a pulmonary artery oxygen saturation was drawn. Arterial oxygen saturation was assumed from pulse oximetry. Cardiac output was calculated using the Deb equation. The PA, wedge, RV and RA pressures were measured on pullback. The balloon wedge
catheter was removed. The 5 Sammarinese sheath was removed and manual pressure was held for hemostasis.
Weight (kg): 121.6
PA (s/d/x mmHg): 55/27/36
PCWP (a/v/x mmHg): 31/50/25
RV (s/x mmHg): 55/18
RA (a/v/x mmHg): 21/21/19
AO (s/d/x mmHg): 167/78/111 (non-invasive)
SVC SvO2 (%): 65.3
IVC SvO2 (%): Not obtained.
RA SvO2 (%): Not obtained.
RV SvO2 (%): Not obtained.
PA SvO2 (%): 57.4
SaO2 (%): 97.0 (assumed)
Hbg (g/dL): 7.6
Deb
CO (liters/minute): 6.70
CI (liters/minute/m2): 2.75
Thermodilution
CO (liters/minute): Not performed.
CI (liters/minute/m2): Not performed.
TPG (mmHg): 11
PVR (Mina Units): 1.64
AVO2 Difference (Volume %): 4.09
Cardiac Power Output (ribera): 1.65 (MAP * CO)/451 (normal 0.5 - 0.7; 0.4 - 0.6 in the elderly)
Cardiac Power Index (ribera/m2): 0.66 (MAP * CI)/451
Cesar: 1.47 (PAs-PAd)/RA
Radiation (mGy): 45.25
DAP (cm2.Gy): 5.9842
Fluoroscopy time (minutes): 1.4
CONCLUSION:
1. Severely elevated filling pressures (PCWP = 25 mmHg at 121.6 kg).
2. Moderate, postcapillary pulmonary hypertension (mean PA = 36 mmHg, PCWP = 25 mmHg, cardiac output = 6.70 L/min, PVR = 1.64 Mina units), WHO group 2.
3. Normal cardiac performance indices (cardiac index = 2.75 L/min/m�, AVO2 difference = 4.09 volume%, cardiac power output = 1.65 W, Cesar = 1.47).
RECOMMENDATIONS:
1. Expectant management after right heart catheterization via right antecubital approach.
2. Aggressive volume reduction via that diuresis versus ultrafiltration.
Copy to: Luis Armando Salas M.D., Elizabeth Nolasco D.O.
Kory Guevara D.O., FACC, FACP
--- NOTE | 2025-07-14 13:26 | W.PN.NEPH.HD ---
Assessment
-
Pt seen on HD. no complaints. VSS, access ok
Progress Note - Hemodialysis
-
Date of Service: July 14, 2025
Duration: 3 hours
Potassium Bath: 3
Calcium Bath: 2.5
Opti-Dialyzer: 160
Ultrafiltration: Other (2.5kg)
Blood Flow: 300
Dialysate Flow: 600
Heparin: 0
EPO: 0
--- NOTE | 2025-07-14 14:57 | PTCARENOTE ---
While sleeping alarming pox 70%, found with pt o2 on forehead- replaced nasal cannula 3L - when sleeping still desated to 70% cannula placed in mouth and pox climbed to 98%- weaned to 1.5L. Currently on HD, dozing on/off sao2 97% on 1.5L via nares.
Tolerating well.
--- NOTE | 2025-07-14 15:29 | CM ---
Wean O2, HD, IV/Rocephin/Flagyl. Discharge POC: Awaiting therapy eval and rec.
[2025-07-14] MEDS: HEPARIN 2200 UNITS INTRACATH (15:44)
[2025-07-14 17:21] LABS: Glucose - Point of Care 108 mg/dl (70-99)
[2025-07-14] MEDS: SODIUM BICARBONATE 1150 MEQ IV (17:47)
--- NOTE | 2025-07-14 17:57 | PTCARENOTE ---
Tolerated HD, c/o upset stomach no appetite. Zofran given x1 this shift.
[2025-07-14 19:15] LABS: Hepatitis B Surface Antigen Negative (Negative)
[2025-07-14 19:33] LABS: Hepatitis C Antibody Negative (Negative)
--- NOTE | 2025-07-14 20:00 | PTCARENOTE ---
Patient received in bed, AAOX3, forgetful, OHKAY OWINGEH. NSR with PVCs on monitor, afebrile, blood pressure as documented. Weak but palpable pulses. Lungs diminished, 96% on 2L. Periods of sleep apnea, pulse ox drops into 50s. Abdomen round obese, with
positive bowel sounds. States he has poor appetite. Whitney catheter draining fadi urine. left brachial dressing clean dry and intact. Foam dressings on left leg intact. PIV x3 flushed and patent. IVF infusing as ordered. Call stoddard within reach
[2025-07-14] MEDS: LIPITOR 80 MG PO (20:13)
[2025-07-14] MEDS: SENOKOT PO (22:24)
[2025-07-14 23:14] LABS: Glucose - Point of Care 87 mg/dl (70-99)
[2025-07-14] MEDS: LANTUS SC (23:16)
[2025-07-15] VITALS (24 sets, daily range): BP systolic 108–145; BP diastolic 50–110; PULSE 67; BMI 34.1
[2025-07-15] MEDS: HEPARIN 5000 UNITS SC ×3 (00:13→16:26)
[2025-07-15] MEDS: ZOFRAN 4 MG IV ×2 (00:21→07:32)
[2025-07-15 00:38] LABS: ANA, IgG Reflex to HEp-2 None Detected (None Detected)
[2025-07-15] MEDS: FLAGYL 500 MG 100 IV ×2 (02:18→14:39)
[2025-07-15 05:14] LABS: Hematocrit 22.7 % (39.0-52.0); Hemoglobin 7.5 g/dL (13.0-18.0); Mean Corp Hgb Conc. 33.0 g/dL (33.0-37.0); Mean Corpuscular Volume 92.3 fL (80.0-94.0); Nucleated Red Blood Cells % 0 % (-); Platelet Count 103 10^3/uL (130-400); Red Cell Dist. Width 15.9 % (11.5-14.5)
[2025-07-15] MEDS: SYNTHROID 150 MCG PO (05:31)
[2025-07-15] MEDS: ROCEPHIN 1000 MG IV (05:31)
[2025-07-15] MEDS: STERILE WATER FOR INJECTION 10 ML IV (05:32)
[2025-07-15 05:53] LABS: Blood Urea Nitrogen 65 mg/dl (9-20); Calcium 7.0 mg/dl (8.4-10.2); Chloride 98 mmol/L (98-107); Estimated Creatinine Clearance 16 ml/min; Glucose 86 mg/dl (70-99); Potassium 4.6 mmol/L (3.5-5.1); Sodium 137 mmol/L (135-145); eGFR 10.77
[2025-07-15 06:04] LABS: Carbon Dioxide 33 mmol/L (22-30)
[2025-07-15] MEDS: LOW STRENGTH ASPIRIN 81 MG PO (07:32)
[2025-07-15] MEDS: NOVOLOG FLEXPEN-MODERATE RESISTANCE SC ×3 (07:32→18:40)
[2025-07-15 07:33] LABS: Glucose - Point of Care 115 mg/dl (70-99)
[2025-07-15] MEDS: LOPRESSOR 25 MG PO ×2 (07:33→21:01)
[2025-07-15] MEDS: FLOMAX 0.4 MG PO (07:39)
--- NOTE | 2025-07-15 08:17 | PTCARENOTE ---
received at change of shift. patient slightly confused, able to reorient to place and time. patient is gaging and c/o nausea. PRN Zofran admin. repositioned for comfort. refused breakfast. emmanuel intact and draining fadi color urine. all due meds
admin. care ongoing
--- NOTE | 2025-07-15 08:55 | W.PN.CD ---
Today's Communication / Plan
-
Continue volume removal with LEAD MAINTENANCE TECHNICIAN/UF.
HFpEF with GDMT as parameters will allow.
The patient will need therapeutic anticoagulation. Previously on rivaroxaban. Consider apixaban 2.5 mg BID (age/renal dosing for AF). No AF on telemetry.
Impression / Plan
-
Impression/Plan: 80M with CAD (prior CABG), heart failure (type unknown), atrial fibrillation (type unknown, on rivaroxaban), NSVT, hypertension, hypercholesterolemia, CKD stage unknown, hypothyroidism, and type 2 diabetes mellitus who presented to
the emergency department the chief complaint of shortness of breath, found to be in hypoxic respiratory failure and acute on chronic kidney failure, mild diverticulitis/colitis.
Primary roller coaster engineer: Dr. Salmeron ([facility])
#LYNN on CKD
-CKD stage unknown.
-Creatinine 10.9 on admission.
-Nephrology following.
-HD catheter placed, LEAD MAINTENANCE TECHNICIAN started. BUN/Cr continue to imrpove.
#HFpEF
-Acute on chronic.
-Exam is unrevealing given body habitus.
-Trend daily weight, I/O, and BMP.
-RHC confirmed severely elevated filling pressures.
-We will add GDMT as tolerated:
-Diuretics: None. Currently on LEAD MAINTENANCE TECHNICIAN/UF.
-Beta spenser: Metoprolol succinate 25 mg BID.
-ACEI/ARB/ARNi: LVEF > 40%. Currently contraindicated. If ESRD is confirmed with no hope of renal recovery, we can consider adding at that time.
-MRA: LVEF > 40%. Currently contraindicated.
-SGLT2i: Currently contraindicated in light of acute on chronic, possible end stage renal failure.
-ICD: Not currently indicated.
#Atrial fibrillation
-Type unknown.
-Currently in accelerated junctional rhythm.
-Rate/rhythm control with metoprolol. Home amiodarone on hold.
-CHADS2-Vasc = 6-8 (CHF, HTN, Age x2, DM, possible CVA?, vascular disease).
-Therapeutic anticoagulation is indicated. The patient may benefit from reduced dose apixaban 2.5 mg BID.
#CAD
-Chronic, stable.
-s/p CABG x2.
-Denies chest pain, not on ASA as he is on Xarelto.
-[facility] 03/2025: All bypass grafts were patent (Dr. Dick).
#NSVT, amiodarone on hold.
#Type 2 diabetes mellitus, HgbA1c pending, per primary
#Obesity, BMI 34, on Ozempic
Subjective/Interval History:
RHC yesterday confirmed severely elevated filling pressures.
UF added to LEAD MAINTENANCE TECHNICIAN.
Renal parameters continue to improve.
DATA:
TTE, 07/12/2025:
SUMMARY
1. Normal biventricular size and systolic function without regional wall motion abnormality. LVEF 55-60%.
2. Mild concentric left ventricular hypertrophy.
3. Stage II diastolic dysfunction suggestive of abnormal relaxation and increased filling pressures.
4. Aortic sclerosis.
5. Mild tricuspid regurgitation with normal PASP (29 mmHg). PASP may be underestimated in the setting of incomplete TR envelope.
6. No prior study available for comparison.
RHC, 07/14/2025:
CONCLUSION:
1. Severely elevated filling pressures (PCWP = 25 mmHg at 121.6 kg).
2. Moderate, postcapillary pulmonary hypertension (mean PA = 36 mmHg, PCWP = 25 mmHg, cardiac output = 6.70 L/min, PVR = 1.64 Mina units), WHO group 2.
3. Normal cardiac performance indices (cardiac index = 2.75 L/min/m�, AVO2 difference = 4.09 volume%, cardiac power output = 1.65 W, Cesar = 1.47).
Physical Exam
Vital Signs/Labs
Vital Signs
Temp Pulse Resp BP Pulse Ox
36.7 C 63 11 135/50 96
07/15/25 07:27 07/15/25 04:00 07/15/25 04:00 07/15/25 04:00 07/15/25 04:00
07/13/25 07/14/25 07/15/25
11:59 11:59 11:59
Actual Weight 121.733 kg 121.733 kg 120.372 kg
07/15/25 05:03
07/15/25 05:03
Magnesium 1.7 mg/dl (1.6-2.3) 07/14/25 05:10
Free T4 1.19 ng/dl (0.78-2.19) 07/11/25 22:05
07/11/25
22:05
Xza-N-Njxtofntqvn Pept 3020
LAB Results
07/12/25 07/12/25
10:15 16:15
Troponin I Cancelled Cancelled
Physical Exam
Constitutional: No acute distress and Comfortable
EENT: Anicteric and Moist mucous membranes
Cardiovascular: Pedal edema is absent, JVD pressure is normal, S1S2 is normal and Murmur/rub/gallop absent
Respiratory: Respiratory effort normal, Lungs clear to auscul., Wheeze Absent, Crackles Absent and Rhonchi Absent
GI: Soft, Distention absent, Flat, Non tender and Normal bowel sounds
Neuro/Psych: Other (Asleep, arousable but confused.)
Other: Cath Site (Right antecubital access site is C/D/I.)
Data Reviewed
-
Date of Service: July 15, 2025
Medical Decision Making: Reviewed Test Results, Independent Historian Assessment and Test Interpretation
EKG: Tracing Personally Visualized and interpreted and Report Reviewed by me
Echo: Tracing Personally Visualized and interpreted and Report Reviewed by me
X-Ray/CT/US/MRI/NUC/PET: Image Personally Visualized and interpreted and Report Reviewed by me
Medical Tests (PFT, Pathology etc): Image Personally Visualized and interpreted and Report Reviewed by me
Labs: Labs Reviewed by me
Old Records: Reviewed
[2025-07-15 08:57] LABS: Serine Protease-3, IgG 0 AU/mL (0-19)
[2025-07-15 11:33] LABS: Glucose - Point of Care 102 mg/dl (70-99)
[2025-07-15] MEDS: SODIUM BICARBONATE 1150 MEQ IV (11:45)
--- NOTE | 2025-07-15 12:27 | W.PN.HOSP.TC ---
Today's Communication/Plan
-
Ultrafiltration/HD today
Monitor mentation
Bicarb drip per nephrology
Rehab evaluation
Assessment / Plan
Assessment / Plan
General: in nad, conversant
HEENT: Other (Very thick neck. No appreciable JVD.)
Respiratory dec bs
Cardiac: S1/S2, regular Rhythm and Murmur (II/ DEISY)
GI: Other (Abdomen is obese and distended. No focal tenderness / rebound / guarding. Pos BS.)
Musculoskeletal: No Clubbing, No Cyanosis, No Edema and Other (R BKA. No peripheral pitting edema R thigh or LLE.)
Neuro: AO x 3
-Whitney with yellow color urine noted
A/P: Patient is an 80y M with PMH significant for ASCVD, CHF and DM-II who presents to ED complaining of SOB with exertion.
LYNN on CKD - ? Stage
Anion Gap Metabolic Acidosis secondary to the above
Hyperkalemia
- Monitor I/Os.
- Volume status is difficult to assess.
- Send to [facility] for most recent records re: baseline renal function- still pending
- Started on HD on 07/13.
- Bicarb gtt per nephrology.
- nephro following. Ultrafiltration/HD ongoing
Normocytic Anemia
- Unknown etiology, chronicity, etc.
- Heme test stools pending but so far no active luminal bleeding noted
- Follow H&H for changes. Hemoglobin 7.5 s/p 1 unit of PRBC.
Acute Hypoxemic Respiratory Insufficiency
-Chest x-ray on 07/15/2025 without acute infiltrates
-Off oxygen.
Chronic HFpEF
- Despite exertional dyspnea / hypoxemia, patient does not appear grossly volume overloaded on exam, CXR, etc.
- Hold further diuretic for now.
- CHF is a recent diagnosis as of last [facility] admission about 2 months ago.
- Status post right heart catheterization found to be volume overloaded. Volume removal via dialysis.
Toxic metabolic encephalopathy likely secondary to delirium versus uremia
- Monitor symptoms.
- Encouraged overnight sleep.
- Avoid narcotics benzodiazepine for now.
-
Diverticulitis / Colitis
Constipation
Leukocytosis with L Shift
- Patient reports no BM in [address] with sigmoid inflammation - colitis v diverticulitis.
- Good results in ED after Lokelma dose.
- Continue bowel regimen.
- IV abx for now with ceftriaxone and metronidazole.Complete 7d course
ASCVD
- h/o CABG x2. Patient reports cath done during most recent hospitalization that showed 'clean coronaries'.
- ASA daily. Monitor for any chest pain / etc.
Paroxysmal atrial fibrillation
- Stable. Hold amiodarone acutely given prolonged QT.
- Consider starting Eliquis vs. hep gtt?
- Continue metoprolol with holding parameters.
- Monitor on telemetry. Cardio eval / prior records as noted above.
DM-II with Peripheral Neuropathy
- Patient on very high doses of insulin. Will decrease acutely given poor renal function.
- Follow and cover with additional SSI as needed.
- Adjust dose for adequate glycemic control.
- Unclear a1c accurate with anemia, elevated cr.
- Hold gabapentin and Lyrica (both?) acutely.
- Hold Ozempic.
- DC a.m. Lantus. Decrease nocturnal Lantus dose. Adjust insulin based on POC/diet tolerance/Cr etc
Hypothyroidism
- TSH is elevated at 11.9. Increase T4 supplementation to 150mcg for now.
BPH
- Wihtney placed acutely given LYNN, hyperkalemia, etc.
- Hold tadalafil. Start tamsulosin.
- Follow I/Os. TOV prior to discharge.
Obesity due to excess calories
- Affects all aspects of care.
- See above re: ALVIN / OHV.
- Encourage healthy diet and exercise as tolerated with goal of weight loss.
Hypocalcemia
Replete for now
DVT Prophylaxis: Subcut Heparin
Code Status: Full
Anticipated Discharge: > 48 hours
Subjective/Interval History
-
Date of Service: July 15, 2025
Patient says he is confused this morning
not able to recall events from yesterday
Off oxygen
Objective Data
-
Labs:
Laboratory Results
07/15/25
05:03
WBC 6.0
Hgb 7.5 L
Hct 22.7 L
Plt Count 103 L
Sodium 137
Potassium 4.6
Chloride 98
Carbon Dioxide 33 H
BUN 65 H
Creatinine 5.1 H*
Glucose 86
Calcium 7.0 L
Vital Signs:
Vital Signs
Temp Pulse Resp BP Pulse Ox
98.5 F 67 12 145/66 95
07/15/25 11:48 07/15/25 08:00 07/15/25 08:00 07/15/25 08:00 07/15/25 09:13
I&O
07/14/25 07/15/25 07/16/25
06:59 06:59 06:59
Intake Total 2810 / 2810 1260 / 1260
Output Total 2500 / 2500 1650 / 1650 550 / 550
Balance 310 / 310 -390 / -390 -550 / -550
Data Reviewed
-
Total Time Spent with Patient (in minutes): 55
[2025-07-15] MEDS: MANNITOL 25% 12.5 GRAMS IV ×2 (12:56→14:40)
--- NOTE | 2025-07-15 14:33 | W.PN.NEPH.HD ---
Addendum entered and electronically signed by Staci Giraldo MD 07/15/25 14:44:
ok to d/c emmanuel and IVF
encourage po intake
Estrada replaced IV
Original Note:
Assessment
-
pt seen during HD
vitals stable
non oliguric with emmanuel
wt decreasing wiht out UF
he seem forgetful
awaiting records
likely need tunneled catheter next week if no renal recovery
Progress Note - Hemodialysis
-
Date of Service: July 15, 2025
Duration: 3 hours
Potassium Bath: 3
Calcium Bath: 2.5
Opti-Dialyzer: 160
Ultrafiltration: Other (0)
Blood Flow: 350
Dialysate Flow: 600
Heparin: no
EPO: no
--- NOTE | 2025-07-15 14:38 | PTCARENOTE ---
emmanuel cath discontinued per nephrology. patient will be due to void by 8:30pm
[2025-07-15] MEDS: HEPARIN 2100 UNITS INTRACATH (15:43)
[2025-07-15] MEDS: CALCIUM GLUCONATE 10% INJECTION 130 MG IV (16:26)
--- NOTE | 2025-07-15 17:28 | CM ---
F/U: Patient is on HD so will need to see if he will need in permanently, this will affect SNF as well as Home. PLAN: TBD, SNF with HD or not or Home.
[2025-07-15 17:33] LABS: Glucose - Point of Care 85 mg/dl (70-99)
--- NOTE | 2025-07-15 17:35 | PTCARENOTE ---
HD completed. patient tolerated well. BP stable. all due meds administered. cont to monitor
[2025-07-15] MEDS: LIPITOR 80 MG PO (21:01)
[2025-07-15] MEDS: SENOKOT PO (21:06)
[2025-07-15 21:23] LABS: 24 Hour Urine Total Volume Random mL; Urine Collection Length Random hr
[2025-07-15 21:39] LABS: Glucose - Point of Care 250 mg/dl (70-99)
[2025-07-15] MEDS: LANTUS 0.08 UNITS SC (22:36)
--- NOTE | 2025-07-15 23:00 | PTCARENOTE ---
[facility], resting comfortably in bed. AAOx3, forgetful at times. VS trends documented in flowsheets. Whitney d/c'd on previous shift, patient helped to stand at bedside multiple times to attempt to void. Bladder scans
ongoing, patient states he does not feel the urge to urinate. Bladder scan at 2029 showed 99mL. Patient noted to be apneic while sleeping and desaturating, cartoon artist provider made aware. Order placed for Bipap. Respiratory therapist placed patient on
bipap- tolerating well. Assessment unchanged from previous. Call stoddard within reach and use encouraged. Care on going.
[2025-07-16] VITALS (14 sets, daily range): BP systolic 122–168; BP diastolic 57–86; PULSE 2–63; BMI 33.8
[2025-07-16] MEDS: HEPARIN 5000 UNITS SC (00:28)
[2025-07-16] MEDS: FLAGYL 500 MG 100 IV ×2 (02:58→13:56)
--- NOTE | 2025-07-16 03:32 | PTCARENOTE ---
Patient unable to void, bladder scan showed 533mL. train caller provider made aware, order placed to straight cath. Straight cathed for 550mL clear yellow urine.
[2025-07-16] MEDS: SYNTHROID 150 MCG PO (05:24)
[2025-07-16] MEDS: ROCEPHIN 1000 MG IV (05:24)
[2025-07-16] MEDS: STERILE WATER FOR INJECTION 10 ML IV (05:24)
[2025-07-16 05:57] LABS: Hematocrit 22.8 % (39.0-52.0); Hemoglobin 7.4 g/dL (13.0-18.0); Mean Corp Hgb Conc. 32.5 g/dL (33.0-37.0); Mean Corpuscular Volume 93.8 fL (80.0-94.0); Nucleated Red Blood Cells % 0 % (-); Platelet Count 107 10^3/uL (130-400); Red Cell Dist. Width 15.4 % (11.5-14.5)
[2025-07-16 06:30] LABS: Blood Urea Nitrogen 44 mg/dl (9-20); Calcium 7.8 mg/dl (8.4-10.2); Carbon Dioxide 30 mmol/L (22-30); Chloride 99 mmol/L (98-107); Estimated Creatinine Clearance 19 ml/min; Glucose 122 mg/dl (70-99); Potassium 4.6 mmol/L (3.5-5.1); Sodium 136 mmol/L (135-145); eGFR 13.60
[2025-07-16 07:37] LABS: Glucose - Point of Care 125 mg/dl (70-99)
--- NOTE | 2025-07-16 09:21 | W.PN.CD ---
Today's Communication / Plan
-
- Continue volume removal with FOREST NURSERY WORKER/UF.
- HFpEF with GDMT as parameters will allow.
- The patient will need therapeutic anticoagulation. Previously on rivaroxaban. Consider apixaban 2.5 mg BID (age/renal dosing for AF).
- Please call with questions.
Impression / Plan
-
Impression/Plan: 80M with CAD (prior CABG), heart failure (type unknown), atrial fibrillation (type unknown, on rivaroxaban), NSVT, hypertension, hypercholesterolemia, CKD stage unknown, hypothyroidism, and type 2 diabetes mellitus who presented to
the emergency department the chief complaint of shortness of breath, found to be in hypoxic respiratory failure and acute on chronic kidney failure, mild diverticulitis/colitis.
Primary adjunct physical education instructor: Dr. Salmeron ([facility])
#LYNN on CKD
-CKD stage 4
-Creatinine 10.9 on admission.
-Nephrology following.
-HD catheter placed, FOREST NURSERY WORKER started. BUN/Cr continue to improve.
-Uremia improved from BUN of 169 to 44 today.
#HFpEF
-Acute on chronic.
-Exam is unrevealing given body habitus.
-Trend daily weight, I/O, and BMP.
-RHC confirmed severely elevated filling pressures.
-We will add GDMT as tolerated:
-Diuretics: None. Currently on FOREST NURSERY WORKER/UF.
-Beta spenser: Metoprolol succinate 25 mg BID.
-ACEI/ARB/ARNi: LVEF > 40%. Currently contraindicated. If ESRD is confirmed with no hope of renal recovery, we can consider adding at that time.
-MRA: LVEF > 40%. Currently contraindicated.
-SGLT2i: Currently contraindicated in light of acute on chronic, possible end stage renal failure.
-ICD: Not currently indicated.
#Atrial fibrillation
-Type unknown.
-Currently in accelerated junctional rhythm.
-Rate/rhythm control with metoprolol. Home amiodarone on hold.
-CHADS2-Vasc = 6-8 (CHF, HTN, Age x2, DM, possible CVA?, vascular disease).
-Therapeutic anticoagulation is indicated. The patient may benefit from reduced dose apixaban 2.5 mg BID(age/renal dosing for AF) - Previously on Xarelto. Currently on heparin for FOREST NURSERY WORKER. Switch to Eliquis when acceptable.
#CAD
-Chronic, stable.
-s/p CABG x2.
-Denies chest pain, not on ASA as he was on Xarelto. Now ASA started.
-[facility] 03/2025: All bypass grafts were patent (Dr. Dick).
#NSVT, amiodarone on hold.
#Type 2 diabetes mellitus, HgbA1c pending, per primary
#Obesity, BMI 34, on Ozempic
Subjective/Interval History:
RHC 07/14 confirmed severely elevated filling pressures.
UF added to FOREST NURSERY WORKER.
Renal parameters continue to improve.
DATA:
TTE, 07/12/2025:
SUMMARY
1. Normal biventricular size and systolic function without regional wall motion abnormality. LVEF 55-60%.
2. Mild concentric left ventricular hypertrophy.
3. Stage II diastolic dysfunction suggestive of abnormal relaxation and increased filling pressures.
4. Aortic sclerosis.
5. Mild tricuspid regurgitation with normal PASP (29 mmHg). PASP may be underestimated in the setting of incomplete TR envelope.
6. No prior study available for comparison.
RHC, 07/14/2025:
CONCLUSION:
1. Severely elevated filling pressures (PCWP = 25 mmHg at 121.6 kg).
2. Moderate, postcapillary pulmonary hypertension (mean PA = 36 mmHg, PCWP = 25 mmHg, cardiac output = 6.70 L/min, PVR = 1.64 Mina units), WHO group 2.
3. Normal cardiac performance indices (cardiac index = 2.75 L/min/m�, AVO2 difference = 4.09 volume%, cardiac power output = 1.65 W, Cesar = 1.47).
Physical Exam
Vital Signs/Labs
Vital Signs
Temp Pulse Resp BP Pulse Ox
97.8 F 64 13 146/76 96
07/16/25 08:10 07/16/25 06:00 07/16/25 06:00 07/16/25 06:00 07/16/25 04:00
07/15/25 07/16/25 07/17/25
06:59 06:59 06:59
Actual Weight 120.372 kg 119.465 kg
07/16/25 05:41
07/16/25 05:41
Magnesium 1.7 mg/dl (1.6-2.3) 07/14/25 05:10
Free T4 1.19 ng/dl (0.78-2.19) 07/11/25 22:05
07/11/25
22:05
Kzx-W-Tstduiigkmu Pept 3020
Physical Exam
Constitutional: No acute distress and Comfortable
EENT: Anicteric and Moist mucous membranes
Cardiovascular: Rhythm & rate is regular and JVD present
Respiratory: Respiratory effort normal and Crackles Present
GI: Soft
Neuro/Psych: Alert and Motor deficits absent
Data Reviewed
-
Date of Service: July 16, 2025
Medical Decision Making: Reviewed Test Results, Test Interpretation and Review of Case with other Provider
EKG: Tracing Personally Visualized and interpreted (underlying rhythm of AF with junctional rhythm )
Echo: Report Reviewed by me
X-Ray/CT/US/MRI/NUC/PET: Report Reviewed by me
Medical Tests (PFT, Pathology etc): Report Reviewed by me
Labs: Labs Reviewed by me
Old Records: Reviewed
[2025-07-16] MEDS: ZOFRAN 4 MG IV (09:53)
[2025-07-16 09:54] LABS: Albumin 2.60 g/dL (3.75-5.01); SPEP IFE Reflex Not Done; Total Protein-Electrophoresis 5.8 g/dL (6.3-8.2)
[2025-07-16] MEDS: NOVOLOG FLEXPEN-MODERATE RESISTANCE SC (11:34)
[2025-07-16] MEDS: LOW STRENGTH ASPIRIN 81 MG PO (11:36)
[2025-07-16] MEDS: FLOMAX 0.4 MG PO (11:37)
[2025-07-16] MEDS: ELIQUIS 2.5 MG PO ×2 (11:38→21:45)
--- NOTE | 2025-07-16 12:00 | PTCARENOTE ---
Patient unable to void. Bladder scanned for 436. Straight cathed patient for 200mls, urine stream stopped. Patient very uncomfortable and yelling out in pain. Bladder scanned immediately for 310 mls. Order obtained for uro-jet. If patient
still unable to void will straight cath again.
[2025-07-16 12:15] LABS: Glucose - Point of Care 161 mg/dl (70-99)
--- NOTE | 2025-07-16 12:28 | W.PN.NEPH.PH ---
Today's Communication / Plan
-
see plan
Assessment/Plan
-
IMP:
LYNN on CKD - ? Stage
Anion Gap Metabolic Acidosis secondary to the above
Hyperkalemia
Acute Hypoxemic Respiratory Insufficiency
Chronic CHfpHF
Diverticulitis / Colitis
Constipation
Leukocytosis with L Shift
ASCVD - h/o CABG
P Atrial Fibrillation
DM-II with Peripheral Neuropathy
Normocytic Anemia
Hypothyroidism
BPH
Obesity due to excess calories
Hypocalcemia
Hypomagnesemia
Hyperphosphatemia
PLan:
LYNN vs progresive CKD
serologies and paraprotein w/u neg, no hydro on CT
completed HDx3
non oliguric however failing VT
monitor with bladder scan, if still not voiding today likely reinsert emmanuel
next HD on Friday
await records from [place]
follow h/h, prn transfusion, fe sat only 19%, likely IV fe with next HD
calcium improving, mild vit D def start D3 and calcium carb
temp HD CVC for now, likely change to tunneled next week if still need HD
d/w patient and nursing
-
-
Date of Service: July 16, 2025
CC / HPI / ROS
-
Chief Complaint:
LYNN
History of Present Illness:
LYNN/Cr peak at 10
hb low at 7.4, calcium better at 7.8
non oliguric but needs SC
Review of Systems:
no CP/SOB at rest
appetite is pooor feels upset stomach when eats and does not like the food here
Labs
-
Labs:
WBC 7.8 10^3/uL (4.8-10.8) 07/16/25 05:41
RBC 2.43 10^6/uL (4.70-6.10) L 07/16/25 05:41
Hgb 7.4 g/dL (13.0-18.0) L 07/16/25 05:41
Hct 22.8 % (39.0-52.0) L 07/16/25 05:41
Plt Count 107 10^3/uL (130-400) L 07/16/25 05:41
Sodium 136 mmol/L (135-145) 07/16/25 05:41
Potassium 4.6 mmol/L (3.5-5.1) 07/16/25 05:41
Chloride 99 mmol/L (98-107) 07/16/25 05:41
Carbon Dioxide 30 mmol/L (22-30) 07/16/25 05:41
BUN 44 mg/dl (9-20) H 07/16/25 05:41
Creatinine 4.2 mg/dL (0.7-1.3) H* 07/16/25 05:41
eGFR 13.60 07/16/25 05:41
Glucose 122 mg/dl (70-99) H 07/16/25 05:41
Calcium 7.8 mg/dl (8.4-10.2) L 07/16/25 05:41
Phosphorus 10.2 mg/dl (2.5-4.5) H 07/12/25 05:34
Fho-W-Eqbujjprkzl Pept 3020 pg/ml 07/11/25 22:05
Albumin 3.1 g/dl (3.5-5.0) L 07/12/25 16:41
Physical Exam
-
Vital Signs:
Vital Signs
Temp Pulse Resp BP Pulse Ox
97.4 F 64 13 146/76 96
07/16/25 11:35 07/16/25 06:00 07/16/25 06:00 07/16/25 06:00 07/16/25 04:00
Cardiovascular:: Regular rate and rhythm
Respiratory:: Bilateral: CTA (decreased BS)
Lung Excursion:: Normal
Abdomen:: Nontender and Soft
Bowel Sounds:: Normal
Extremity Edema:: None: Bilateral:
Emmanuel Catheter: No
[2025-07-16] MEDS: LOPRESSOR PO (12:38)
[2025-07-16] MEDS: HEPARIN SC (12:38)
--- NOTE | 2025-07-16 13:29 | W.PN.HOSP.TC ---
Today's Communication/Plan
-
abd xray
ppi added
monitor for retention urinary
oob with PT
eliquis started
monitor Hgb
Assessment / Plan
Assessment / Plan
General: in nad, mildly lethargic this morning
HEENT: Other (Very thick neck. No appreciable JVD.)
Respiratory dec bs anterior
Cardiac: S1/S2, regular Rhythm and Murmur (II/ DEISY)
GI: Other (Abdomen is obese and distended. No focal tenderness / rebound / guarding. Pos BS.)
Musculoskeletal: No Clubbing, No Cyanosis, No Edema and Other (R BKA. No peripheral pitting edema R thigh or LLE.)
Neuro: AO x 1, non focal but confused.
A/P: Patient is an 80y M with PMH significant for ASCVD, CHF and DM-II who presents to ED complaining of SOB with exertion.
LYNN vs. progressive CKD - ? Stage
Anion Gap Metabolic Acidosis secondary to the above
Hyperkalemia
- Monitor I/Os.
- Volume status is difficult to assess.
- Send to [facility] for most recent records re: baseline renal function- still pending
- Started on HD on 07/13.
- Bicarb gtt per nephrology.
- nephro following. Ultrafiltration/HD ongoing
Hypocalcemia with Vit D def
-s/p aggressive IV repletion
-now po calcium carbonate and po vit D
BPH
Urinary retention
-emmanuel removed on 07/15
-now with intermittent retention. If persistent retaining will require re-inserting of emmanuel
-cont flomax. Hold tadafil
Nausea
-unclear if related to uremia
-Check Abd xray
-ppi added
-anti-nausea prn
-encourage po intake
Normocytic Anemia
Iron deficiency anemia-IV iron with HD per nephro
- Unknown etiology, chronicity, etc.
- Heme test stools pending but so far no active luminal bleeding noted
- Follow H&H for changes. Hemoglobin 7.4 s/p 1 unit of PRBC.
Acute Hypoxemic Respiratory Insufficiency
-Chest x-ray on 07/15/2025 without acute infiltrates
-Off oxygen.
Chronic HFpEF
- Despite exertional dyspnea / hypoxemia, patient does not appear grossly volume overloaded on exam, CXR, etc.
- Hold further diuretic for now.
- CHF is a recent diagnosis as of last [facility] admission about 2 months ago.
- Status post right heart catheterization found to be volume overloaded. Volume removal via dialysis.
Toxic metabolic encephalopathy likely secondary to delirium versus uremia
- Monitor symptoms.
- Encouraged overnight sleep.
- Avoid narcotics benzodiazepine for now.
-neuro exam non focal.
Diverticulitis / Colitis
Constipation
Leukocytosis with L Shift on admission
- Patient reports no BM in [address] with sigmoid inflammation - colitis v diverticulitis.
- having bm.
- IV abx for now with ceftriaxone and metronidazole.Complete 7d course
ASCVD
- h/o CABG x2. Patient reports cath done during most recent hospitalization that showed 'clean coronaries'.
- ASA daily. Monitor for any chest pain / etc.
Paroxysmal atrial fibrillation
- Stable. Hold amiodarone acutely given prolonged QT.
- started on Eliquis 2.5mg BID. Monitor hgb/platelets.
- Continue metoprolol with holding parameters.
- Monitor on telemetry. Cardio eval / prior records as noted above.
DM-II with Peripheral Neuropathy
- Patient on very high doses of insulin. Will decrease acutely given poor renal function.
- Follow and cover with additional SSI as needed.
- Adjust dose for adequate glycemic control.
- Unclear a1c accurate with anemia, elevated cr.
- Hold gabapentin and Lyrica (both?) acutely.
- Hold Ozempic.
- DC a.m. Lantus. Decrease nocturnal Lantus dose. Adjust insulin based on POC/diet tolerance/Cr etc
Hypothyroidism
- TSH is elevated at 11.9. Increase T4 supplementation to 150mcg for now.
Obesity due to excess calories
- Affects all aspects of care.
- See above re: ALVIN / OHV.
- Encourage healthy diet and exercise as tolerated with goal of weight loss.
Hypocalcemia
Replete for now
DVT Prophylaxis: eliquis
Code Status: Full
d/w with nephrology
Anticipated Discharge: > 48 hours
Subjective/Interval History
-
Date of Service: July 16, 2025
state of nausea but no vomiting
required straight cath overnight
not much appetite for breakfast
Objective Data
-
Labs:
Laboratory Results
07/16/25 07/16/25
05:41 08:29
WBC 7.8
Hgb 7.4 L
Hct 22.8 L
Plt Count 107 L
APTT Cancelled
Sodium 136
Potassium 4.6
Chloride 99
Carbon Dioxide 30
BUN 44 H
Creatinine 4.2 H*
Glucose 122 H
Calcium 7.8 L
Vital Signs:
Vital Signs
Temp Pulse Resp BP Pulse Ox
97.4 F 64 13 146/76 94
07/16/25 11:35 07/16/25 06:00 07/16/25 06:00 07/16/25 06:00 07/16/25 08:45
I&O
07/15/25 07/16/25 07/17/25
06:59 06:59 06:59
Intake Total 1260 / 1260 300 / 300
Output Total 1650 / 1650 1100 / 1100
Balance -390 / -390 -800 / -800
Data Reviewed
-
Total Time Spent with Patient (in minutes): 55
[2025-07-16] MEDS: NOVOLOG FLEXPEN-MODERATE RESISTANCE 1 UNITS SC (13:49)
[2025-07-16] MEDS: FLUSH (NSS) 1 FLUSH IV (13:57)
[2025-07-16] MEDS: PROTONIX 40 MG PO (15:45)
[2025-07-16 17:29] LABS: Glucose - Point of Care 181 mg/dl (70-99)
[2025-07-16] MEDS: LIDOCAINE URO-JET 2% 1 SYRINGE TOPICAL (17:45)
[2025-07-16] MEDS: NOVOLOG FLEXPEN-MODERATE RESISTANCE 300 UNITS SC (17:46)
--- NOTE | 2025-07-16 18:00 | PTCARENOTE ---
Patient able to use urinal x1 today, voided 200 mls fadi urine. Bladder scanned patient for 307mls, patient unable to void. Straight cathed patient used uro-jet as ordered. Removed 475 mls of blood tinged urine with clots. made aware.
Patient complaining of nausea,poor appetite. Patient refusing to eat any meals today. Patient does not like the food that we serve and he can't eat because he is nauseous. Medicated with zofran x1. Abdominal xray obtained today.
[2025-07-16 21:42] LABS: Glucose - Point of Care 174 mg/dl (70-99)
[2025-07-16] MEDS: OSCAL CAL 500 500 MG PO (21:45)
[2025-07-16] MEDS: LIPITOR 80 MG PO (21:45)
[2025-07-16] MEDS: LOPRESSOR 25 MG PO (21:47)
[2025-07-16] MEDS: LANTUS 0.08 UNITS SC (21:48)
[2025-07-16] MEDS: DULCOLAX PO (21:49)
[2025-07-17] VITALS (17 sets, daily range): BP systolic 97–149; BP diastolic 45–75; PULSE 2–76; O2SAT 93; BMI 33.5
[2025-07-17] MEDS: FLAGYL 500 MG 100 IV ×2 (02:38→14:16)
--- NOTE | 2025-07-17 04:21 | PTCARENOTE ---
pt voided 175 ml at 0030 and 75 ml at 0400 in the urinal. Unable to tolerate the bipap for more than 15-20 mins; calling out 'I feel like I'm suffocating'. Resp therapy notified and 5 L NC replaced. Pt with frequent periods of anxiety and calling
out since bipap off. Repositioned several times, sat on the side of the bed, etc. Emotional support provided.
[2025-07-17 06:07] LABS: Hematocrit 23.0 % (39.0-52.0); Hemoglobin 7.5 g/dL (13.0-18.0); Mean Corp Hgb Conc. 32.6 g/dL (33.0-37.0); Mean Corpuscular Volume 94.3 fL (80.0-94.0); Nucleated Red Blood Cells % 0 % (-); Platelet Count 120 10^3/uL (130-400); Red Cell Dist. Width 15.0 % (11.5-14.5)
[2025-07-17] MEDS: STERILE WATER FOR INJECTION 10 ML IV (06:10)
[2025-07-17] MEDS: SYNTHROID 150 MCG PO (06:10)
[2025-07-17] MEDS: ROCEPHIN 1000 MG IV (06:10)
[2025-07-17] MEDS: LIDOCAINE URO-JET 2% 1 SYRINGE TOPICAL ×2 (06:27→21:46)
[2025-07-17 06:36] LABS: Blood Urea Nitrogen 51 mg/dl (9-20); Calcium 8.1 mg/dl (8.4-10.2); Carbon Dioxide 30 mmol/L (22-30); Chloride 100 mmol/L (98-107); Estimated Creatinine Clearance 15 ml/min; Glucose 121 mg/dl (70-99); Potassium 4.7 mmol/L (3.5-5.1); Sodium 137 mmol/L (135-145); eGFR 10.28
[2025-07-17 08:16] LABS: Glucose - Point of Care 184 mg/dl (70-99)
[2025-07-17] MEDS: NOVOLOG FLEXPEN-MODERATE RESISTANCE 1 UNITS SC (09:04)
[2025-07-17] MEDS: ELIQUIS 2.5 MG PO ×2 (09:04→20:23)
[2025-07-17] MEDS: FLOMAX 0.4 MG PO (09:05)
[2025-07-17] MEDS: OSCAL CAL 500 500 MG PO ×2 (09:06→20:23)
[2025-07-17] MEDS: LOW STRENGTH ASPIRIN 81 MG PO (09:06)
[2025-07-17] MEDS: VITAMIN D3 (cholecalciferol) 25 MCG PO (09:06)
[2025-07-17] MEDS: PROTONIX 40 MG PO (09:06)
[2025-07-17] MEDS: SENOKOT-S 1 TABLET PO ×2 (09:07→20:23)
[2025-07-17] MEDS: LOPRESSOR 25 MG PO ×2 (09:07→20:23)
--- NOTE | 2025-07-17 10:00 | W.PN.HOSP.TC ---
Today's Communication/Plan
-
Aggressive bowel regimen
Out of bed
Dialysis tomorrow
Monitor hemoglobin and platelets
Assessment / Plan
Assessment / Plan
General: in nad, conversant
HEENT: Other (Very thick neck. No appreciable JVD.)
Respiratory dec bs anterior
Cardiac: S1/S2, regular Rhythm and Murmur (II/ DEISY)
GI: Other (Abdomen is obese and distended. No focal tenderness / rebound / guarding. Pos BS.)
Musculoskeletal: No Clubbing, No Cyanosis, No Edema and Other (R BKA. No peripheral pitting edema R thigh or LLE.)
Neuro: AO x 3, nonfocal grossly intact
A/P: Patient is an 80y M with PMH significant for ASCVD, CHF and DM-II who presents to ED complaining of SOB with exertion.
LYNN vs. progressive CKD - ? Stage
Anion Gap Metabolic Acidosis secondary to the above
Hyperkalemia
- Monitor I/Os.
- Volume status is difficult to assess.
- Send to [facility] for most recent records re: baseline renal function- still pending
- Started on HD on 07/13.
- Bicarb gtt per nephrology.
- nephro following. Ultrafiltration/HD ongoing
Hypocalcemia with Vit D def
-s/p aggressive IV repletion
-now po calcium carbonate and po vit D
BPH
Urinary retention
-emmanuel removed on 07/15
-now with intermittent retention. If persistent retaining will require re-inserting of emmanuel
-cont flomax. Hold tadafil
Nausea likely 2/2 constipation
-Check Abd xray-mod stool burden
-ppi added
-anti-nausea prn
-encourage po intake
-Aggressive bowel regimen.
Normocytic Anemia
Iron deficiency anemia-IV iron with HD per nephro
- Unknown etiology, chronicity, etc.
- Heme test stools pending but so far no active luminal bleeding noted
- Follow H&H for changes. Hemoglobin 7.4 s/p 1 unit of PRBC.
Acute Hypoxemic Respiratory Insufficiency
-Chest x-ray on 07/15/2025 without acute infiltrates
-Off oxygen.
Chronic HFpEF
- Despite exertional dyspnea / hypoxemia, patient does not appear grossly volume overloaded on exam, CXR, etc.
- Hold further diuretic for now.
- CHF is a recent diagnosis as of last [facility] admission about 2 months ago.
- Status post right heart catheterization found to be volume overloaded. Volume removal via dialysis.
Toxic metabolic encephalopathy likely secondary to delirium versus uremia
- Monitor symptoms.
- Encouraged overnight sleep.
- Avoid narcotics benzodiazepine for now.
-neuro exam non focal. Mentation back to baseline
Diverticulitis / Colitis
Constipation
Leukocytosis with L Shift on admission
- Patient reports no BM in [address] with sigmoid inflammation - colitis v diverticulitis.
- having bm.
- IV abx for now with ceftriaxone and metronidazole.Complete 7d course
ASCVD
- h/o CABG x2. Patient reports cath done during most recent hospitalization that showed 'clean coronaries'.
- ASA daily. Monitor for any chest pain / etc.
Paroxysmal atrial fibrillation
- Stable. Hold amiodarone acutely given prolonged QT.
- started on Eliquis 2.5mg BID. Monitor hgb/platelets.
- Continue metoprolol with holding parameters.
- Monitor on telemetry. Cardio eval / prior records as noted above.
DM-II with Peripheral Neuropathy
- Patient on very high doses of insulin. Will decrease acutely given poor renal function.
- Follow and cover with additional SSI as needed.
- Adjust dose for adequate glycemic control.
- Unclear a1c accurate with anemia, elevated cr.
- Hold gabapentin and Lyrica (both?) acutely.
- Hold Ozempic.
- DC a.m. Lantus. Decrease nocturnal Lantus dose. Adjust insulin based on POC/diet tolerance/Cr etc
Hypothyroidism
- TSH is elevated at 11.9. Increase T4 supplementation to 150mcg for now.
Obesity due to excess calories
- Affects all aspects of care.
- See above re: ALVIN / OHV.
- Encourage healthy diet and exercise as tolerated with goal of weight loss.
Hypocalcemia
Replete for now
DVT Prophylaxis: eliquis
Code Status: Full
Anticipated Discharge: > 48 hours
Subjective/Interval History
-
Date of Service: July 17, 2025
Working with PT/OT
OOB
feeling less nauseous
conversant-talkative.
confusion seems to have resolved
Objective Data
-
Labs:
Laboratory Results
07/17/25
05:42
WBC 7.6
Hgb 7.5 L
Hct 23.0 L
Plt Count 120 L
Sodium 137
Potassium 4.7
Chloride 100
Carbon Dioxide 30
BUN 51 H
Creatinine 5.3 H*
Glucose 121 H
Calcium 8.1 L
Vital Signs:
Vital Signs
Temp Pulse Resp BP Pulse Ox
97.8 F 71 12 143/57 91
07/17/25 08:16 07/17/25 09:07 07/17/25 04:01 07/17/25 09:07 07/17/25 04:01
I&O
07/16/25 07/17/25 07/18/25
06:59 06:59 06:59
Intake Total 300 / 300 920 / 920
Output Total 1100 / 1100 1815 / 1815
Balance -800 / -800 -895 / -895
Data Reviewed
-
Total Time Spent with Patient (in minutes): 55
[2025-07-17] MEDS: MIRALAX 17 GRAMS PO ×2 (10:17→16:34)
[2025-07-17] MEDS: FLEET MINERAL OIL ENEMA 133 ML RECTAL (10:17)
[2025-07-17 12:03] LABS: Glucose - Point of Care 319 mg/dl (70-99)
--- NOTE | 2025-07-17 12:41 | W.PN.NEPH.PH ---
Today's Communication / Plan
-
HD tomorrow
follow labs
Assessment/Plan
-
IMP:
LYNN on CKD - ? Stage
Anion Gap Metabolic Acidosis secondary to the above
Hyperkalemia
Acute Hypoxemic Respiratory Insufficiency
Chronic CHfpHF
Diverticulitis / Colitis
Constipation
Leukocytosis with L Shift
ASCVD - h/o CABG
P Atrial Fibrillation
DM-II with Peripheral Neuropathy
Normocytic Anemia
Hypothyroidism
BPH
Obesity due to excess calories
Hypocalcemia
Hypomagnesemia
Hyperphosphatemia
PLan:
LYNN vs progresive CKD
serologies and paraprotein w/u neg, no hydro on CT
completed HDx3, cr increasing trend so no renal recovery noted though is non oliguric
requiring SC still, follow bladder scan 137cc today
next HD on Friday
await records from [facility]
follow h/h, prn transfusion, fe sat only 19%, likely IV fe with next HD
calcium improving, mild vit D def start D3 and calcium carb
temp HD CVC for now, likely change to tunneled next week if still need HD
d/w patient
-
-
Date of Service: July 17, 2025
CC / HPI / ROS
-
Chief Complaint:
LYNN
History of Present Illness:
LYNN/Cr peak at 10, down to 4.2 today 5.3 uptrending
hb low at 7.4, calcium better at 8.1
non oliguric but needed SC
Review of Systems:
no CP/SOB at rest
appetite is pooor feels upset stomach when eats and does not like the food here-improving
Labs
-
Labs:
WBC 7.6 10^3/uL (4.8-10.8) 07/17/25 05:42
RBC 2.44 10^6/uL (4.70-6.10) L 07/17/25 05:42
Hgb 7.5 g/dL (13.0-18.0) L 07/17/25 05:42
Hct 23.0 % (39.0-52.0) L 07/17/25 05:42
Plt Count 120 10^3/uL (130-400) L 07/17/25 05:42
Sodium 137 mmol/L (135-145) 07/17/25 05:42
Potassium 4.7 mmol/L (3.5-5.1) 07/17/25 05:42
Chloride 100 mmol/L (98-107) 07/17/25 05:42
Carbon Dioxide 30 mmol/L (22-30) 07/17/25 05:42
BUN 51 mg/dl (9-20) H 07/17/25 05:42
Creatinine 5.3 mg/dL (0.7-1.3) H* 07/17/25 05:42
eGFR 10.28 07/17/25 05:42
Glucose 121 mg/dl (70-99) H 07/17/25 05:42
Calcium 8.1 mg/dl (8.4-10.2) L 07/17/25 05:42
Phosphorus 10.2 mg/dl (2.5-4.5) H 07/12/25 05:34
Krg-W-Vlkhdizwzbf Pept 3020 pg/ml 07/11/25 22:05
Albumin 3.1 g/dl (3.5-5.0) L 07/12/25 16:41
Physical Exam
-
Vital Signs:
Vital Signs
Temp Pulse Resp BP Pulse Ox
97.8 F 71 12 143/57 93
07/17/25 08:16 07/17/25 09:07 07/17/25 04:01 07/17/25 09:07 07/17/25 11:43
Cardiovascular:: Regular rate and rhythm
Respiratory:: Bilateral: CTA (decreased BS)
Lung Excursion:: Normal
Abdomen:: Nontender and Soft
Bowel Sounds:: Normal
Extremity Edema:: None: Left:
Whitney Catheter: No
Other Findings::
rigmonica SMITHA
[2025-07-17] MEDS: NOVOLOG FLEXPEN-MODERATE RESISTANCE 7 UNITS SC (12:45)
--- NOTE | 2025-07-17 14:36 | PTCARENOTE ---
Patient out of bed today to commode and chair, several times, with rolling walker and prosthesis on. Enema administered and patient had 2 large bowel movements in commode. Unable to urinate today, bladder scan at noon was only 137ml, patient has no
desire to void at this time. No nausea today when asked, consumed majority of breakfast. Patient has been compliant with plan of care, in good spirits. [facility] bath completed.
[2025-07-17] MEDS: NOVOLOG FLEXPEN-MODERATE RESISTANCE 5 UNITS SC (16:48)
[2025-07-17 16:54] LABS: Glucose - Point of Care 252 mg/dl (70-99)
--- NOTE | 2025-07-17 18:41 | PTCARENOTE ---
Patient is having periods of apnea and desatting down into the 60s when he feels asleep. Patient refused the bipap last night, he is now requesting it for tonight. Notified respiratory.
[2025-07-17] MEDS: DULCOLAX 10 MG PO (20:23)
[2025-07-17] MEDS: LIPITOR 80 MG PO (20:23)
[2025-07-17] MEDS: MIRALAX PO (20:23)
[2025-07-17] MEDS: LANTUS 0.08 UNITS SC (21:55)
[2025-07-17 21:57] LABS: Glucose - Point of Care 294 mg/dl (70-99)
--- NOTE | 2025-07-17 22:11 | PTCARENOTE ---
REceived pt at change of shift. Pt requesting to wear bipap mask tonight. Notified DRAINAGE ENGINEER to have the order placed again. Discussed with RT. Pt states he wants to wear the mask all night to get some sleep. Unable to void still. Bladder scanned
pt for 418. Pt attempted to void for 30 mins but was unsuccessful. This would be pts 4th time being straight cathed and does not tolerate procedure well at all. Discussed with DRAINAGE ENGINEER. Emmanuel order placed. 14 fr emmanuel placed; pt was extremely
uncomfortable during procedure. Urine was blood tinged with clots present. CHG bath provided. Call stoddard within reach.
[2025-07-18] VITALS (34 sets, daily range): BP systolic 100–191; BP diastolic 48–91; PULSE 2–60; BMI 34.5
[2025-07-18] MEDS: FLAGYL 500 MG 100 IV ×2 (01:54→14:51)
[2025-07-18] MEDS: APRESOLINE 5 MG IV (01:54)
[2025-07-18] MEDS: SYNTHROID 150 MCG PO (05:20)
[2025-07-18] MEDS: STERILE WATER FOR INJECTION 10 ML IV (05:20)
[2025-07-18] MEDS: ROCEPHIN 1000 MG IV (05:20)
--- NOTE | 2025-07-18 06:55 | W.PN.UPDATE ---
Update Note
Progress Note Update
Reported by the staff, that the patient was not able to void, had straight cath x3.�Emmanuel ordered. Urine noted with blood tinged and small blood clots post emmanuel insertion.
-This am urine is clear and no blood tinged or clots noted.�
[2025-07-18 08:24] LABS: Glucose - Point of Care 160 mg/dl (70-99)
[2025-07-18] MEDS: LOW STRENGTH ASPIRIN 81 MG PO (08:31)
[2025-07-18] MEDS: SENOKOT-S 1 TABLET PO ×2 (08:31→20:52)
[2025-07-18] MEDS: OSCAL CAL 500 500 MG PO ×2 (08:31→20:52)
[2025-07-18] MEDS: VITAMIN D3 (cholecalciferol) 25 MCG PO (08:31)
[2025-07-18] MEDS: NOVOLOG FLEXPEN-MODERATE RESISTANCE 1 UNITS SC ×2 (08:31→16:46)
[2025-07-18] MEDS: FLOMAX 0.4 MG PO (08:31)
[2025-07-18] MEDS: MIRALAX PO (08:32)
[2025-07-18] MEDS: PROTONIX 40 MG PO (08:32)
[2025-07-18] MEDS: LOPRESSOR 25 MG PO ×2 (08:32→20:52)
[2025-07-18] MEDS: ELIQUIS 2.5 MG PO ×2 (08:32→20:52)
--- NOTE | 2025-07-18 09:01 | PTCARENOTE ---
pt aaox3. states feeling better. on 2lnc 94%. breath sounds diminished.
[2025-07-18] MEDS: NOVOLOG FLEXPEN-MODERATE RESISTANCE 5 UNITS SC (11:36)
[2025-07-18 11:57] LABS: Glucose - Point of Care 288 mg/dl (70-99)
[2025-07-18] MEDS: MANNITOL 25% 12.5 GRAMS IV ×2 (12:40→14:35)
[2025-07-18] MEDS: FLEXBUMIN 25% FOR HEMODIALYSIS 12.5 GRAMS IV ×2 (12:45→14:47)
[2025-07-18] MEDS: RETACRIT 10000 UNITS IV (13:00)
[2025-07-18] MEDS: FERRLECIT 125 MG IV (13:00)
--- NOTE | 2025-07-18 13:05 | W.PN.NEPH.HD ---
Assessment
-
Patient seen on dialysis
Systolic blood pressure stable (120) at even UF
If creatinine rises today we will place tunneled catheter tomorrow
Whitney catheter was replaced
Progress Note - Hemodialysis
-
Date of Service: July 18, 2025
Duration: 30 minutes and 3 hours
Potassium Bath: 3
Calcium Bath: 2.5
Opti-Dialyzer: 160
Ultrafiltration: Other (Even)
Blood Flow: 350
Dialysate Flow: 600
Heparin: None
EPO: Iron and Epogen given
--- NOTE | 2025-07-18 13:27 | W.PN.HOSP.TC ---
Addendum entered and electronically signed by Gm Fall MD 07/18/25 14:11:
#Thrombocytopenia
check B12, folate, retics, LDH, might need Hem if worsening
#MACEY
FOBT positive in ED
watch for overt bleed
Original Note:
Today's Communication/Plan
-
cont HD as per candle molder
Last day Abx
plan for d/c to skilled rehab as per PT/OT reccs
Assessment / Plan
Assessment / Plan
80yo M with PMHX of BPH, HFpEF, CAD s/p CABG, paroxysmal Afib, DM, hypothyroidism, obesity, CKD came with AMS and worsening renal failure, initiated on new HD. DIastolic CHF exacerbation as per RH cath on 07/14/25. ALso concern for colitis with
constipation on admisison
A/P:
#LYNN on CKD, unclear stage with metabolic acidosis
#HYperkalemia
Old medical records still pending
Nephrology follows: initiated HD on temporary catheter on 07/13/25, possible plan for perm cath
follow BPH
#Acute mtabolic encephalopathy
most liekly 2/2 LYNN with uremia
resolved
#Anemia 2/2 CKD
Epo as per Nephrology
stool brown color
#Colitis vs uncomplicated diverticulitits on admision
completed 7 days Ceftriaxone/FLagyl
LLQ pain resolved
Colonoscopy in 4-6 weeks advised
#Pancreatic atrophy
Outpatient GI
#Afib, unspecified
#CAD stable
#Acute hypoxic respiratory insufficiency 2/2 Acute on chronic HFpEF
#NSVT
post right heart catheterization found to be volume overloaded on 07/14/25
Cardio follows: amiodarone on hold, switched to ELiquis, volue mgmt with HD and GDMT
#BPH
watch for retention
passed TOV on 07/15/25
#DM type 2 with neuropathy
cont home meds
Insulin SS, Accucghecks, DM diet
#Hypocalcemia
replete and follow
#Hypothyroidism
#Obesity BMI 34.5
cont hoem meds
decrease calorie intake
DVT ppx Eliquis
Full code
I have spent at least 58min reviewing hcart, test results, communication with consuoltants and providing direct patient care
Anticipated Discharge: 24 - 48 hours
Subjective/Interval History
-
Date of Service: July 18, 2025
Objective Data
-
Labs:
Laboratory Results
07/18/25
13:17
WBC Pending
Hgb Pending
Hct Pending
Plt Count Pending
Sodium Pending
Potassium Pending
Chloride Pending
Carbon Dioxide Pending
BUN Pending
Creatinine Pending
Glucose Pending
Calcium Pending
Vital Signs:
Vital Signs
Temp Pulse Resp BP Pulse Ox
97.8 F 62 17 119/53 95
07/18/25 11:37 07/18/25 08:32 07/18/25 08:00 07/18/25 08:32 07/18/25 09:00
I&O
07/17/25 07/18/25 07/19/25
06:59 06:59 06:59
Intake Total 920 / 920 580 / 580
Output Total 1815 / 1815 800 / 800
Balance -895 / -895 -220 / -220
Review of Systems
-
History Source: Patient
All other systems: Reviewed and negative
Physical Exam
-
General: No Apparent Distress
HEENT: Normocephalic
Respiratory: Clear to Auscultation
GI: Soft, Nontender and Nondistended
Skin: Warm
Neuro: Awake, Alert, Oriented and AO x 3
Psych: Calm
[2025-07-18 13:45] LABS: Hematocrit 22.3 % (39.0-52.0); Hemoglobin 6.9 g/dL (13.0-18.0); Mean Corp Hgb Conc. 30.9 g/dL (33.0-37.0); Mean Corpuscular Volume 97.8 fL (80.0-94.0); Platelet Count 102 10^3/uL (130-400); Red Cell Dist. Width 15.3 % (11.5-14.5)
[2025-07-18 14:46] LABS: Reticulocyte Count 5.5 % (0.4-2.8)
[2025-07-18 15:13] LABS: Blood Urea Nitrogen 37 mg/dl (9-20); Calcium 7.9 mg/dl (8.4-10.2); Carbon Dioxide 30 mmol/L (22-30); Chloride 103 mmol/L (98-107); Estimated Creatinine Clearance 23 ml/min; Glucose 209 mg/dl (70-99); LDH 280 U/L (120-246); Potassium 3.2 mmol/L (3.5-5.1); Sodium 136 mmol/L (135-145); eGFR 16.36
[2025-07-18 16:23] LABS: Folate 7.1 ng/ml (2.76-20); Vitamin B12 635 pg/ml (239-931)
[2025-07-18] MEDS: TYLENOL 650 MG PO ×2 (16:46→22:04)
[2025-07-18 16:56] LABS: Glucose - Point of Care 180 mg/dl (70-99)
--- NOTE | 2025-07-18 19:06 | CM ---
F/U: CM told that patient will need SNF with HD, but first [facility] will establish outpatient HD center. Thus, gathered multiple clinical documents and faxed it to [facility] admissions for [facility] location. [facility] admissions will then verify that the
clinical was received. In the meantime, see what SNF patient can be accepted to for HD. CM has to talk to patient, but made some referrals to eventually offer patient. PLAN: SNF with HD.
[2025-07-18] MEDS: LIPITOR 80 MG PO (20:52)
[2025-07-18] MEDS: DULCOLAX 10 MG PO (22:04)
[2025-07-18] MEDS: LANTUS 0.08 UNITS SC (22:07)
[2025-07-18 22:18] LABS: Glucose - Point of Care 183 mg/dl (70-99)
[2025-07-19] VITALS (20 sets, daily range): BP systolic 58–158; BP diastolic 48–76; PULSE 61–64; O2SAT 98; BMI 33.4
[2025-07-19] MEDS: FLAGYL 500 MG 100 IV (02:41)
[2025-07-19] MEDS: SYNTHROID 150 MCG PO (05:33)
[2025-07-19] MEDS: ROCEPHIN 1000 MG IV (05:33)
[2025-07-19] MEDS: STERILE WATER FOR INJECTION 10 ML IV (05:33)
[2025-07-19 05:58] LABS: Hematocrit 24.0 % (39.0-52.0); Hemoglobin 8.0 g/dL (13.0-18.0); Mean Corp Hgb Conc. 33.3 g/dL (33.0-37.0); Mean Corpuscular Volume 94.1 fL (80.0-94.0); Platelet Count 112 10^3/uL (130-400); Red Cell Dist. Width 15.5 % (11.5-14.5)
[2025-07-19 06:30] LABS: Blood Urea Nitrogen 31 mg/dl (9-20); Calcium 8.1 mg/dl (8.4-10.2); Carbon Dioxide 30 mmol/L (22-30); Chloride 103 mmol/L (98-107); Estimated Creatinine Clearance 21 ml/min; Glucose 143 mg/dl (70-99); Potassium 4.2 mmol/L (3.5-5.1); Sodium 137 mmol/L (135-145); eGFR 15.33
--- NOTE | 2025-07-19 06:31 | PTCARENOTE ---
Cared for pt overnight. aaox3. NSR 1st degree heart block, >QT. VSS. afebrile. remains on 2LNC. Whitney in place, at first draining brown sediment urine in tube but this morning urine looked dark yellow. No BM overnight. C/o pain in legs d.t
neuropathy & c/o not getting gabapentin or lyrica this hospital stay. Contacted ELECTRICIAN APPRENTICE, no new orders since those meds can affect the kidney. Tylenol given. HD cath in place. Pt was able to sleep overnight. No other issues, will monitor.
--- NOTE | 2025-07-19 08:21 | CON.GI ---
Consultation
-
Date/Time Consultation Performed: 07/19/25
Performing Provider: Isai Elias MD
Reason for Consultation: anemia
Medical History
Chief Complaint / HPI
Chief Complaint: anemia
History of Present Illness:
The patient is an 80-year-old male with past medical history as noted who was admitted on the second with shortness of breath, found to be in acute renal failure, with creatinine of 10. He has complicated recent history including new diagnosis of
heart failure after hospitalization at [place]. We are consulted for anemia, as he was found to have drop in hemoglobin, initially from 7-6, received transfusion, was stable in the sevens though yesterday also had dropped to 6.9, now transfused
again with hemoglobin of 8. Throughout this time he has never had any signs of gross bleeding. He does have brown stools which are Hemoccult positive. He was having some left lower quadrant discomfort on admission, and CAT scan suggested possible
diverticulitis versus colitis though x-ray also showed large stool burden. Multiple bowel movements and since has been feeling much better with no further pain. Again, he is never had any melena or hematochezia. He denies any abdominal pain now
has been eating well. He has had multiple colonoscopies with Drs. Horton/Joseph, last within the last 5 years which was okay by his report.
Past Medical History
Past Medical History: Other (ASCVD Hypertension CHF A-Fib DM-II Peripheral Neuropathy Obesity Hypothyroidism CKD)
Past Surgical History: Other (CABG x 2 Right BKA)
Social History
Tobacco: Former Smoker
Alcohol: None
Family History
Family History: Reviewed & Not Pertinent
Allergies / Home Medications
Allergy/AdvReac Type Severity Reaction Status Date / Time
No Known Allergies Allergy Unverified 07/11/25 21:44
�Medication �Instructions �Recorded
amiodarone 200 mg tablet 200 mg PO DAILY Arrhythmia 07/11/25
atorvastatin 80 mg tablet 80 mg PO HS High Cholesterol 07/11/25
cromolyn 4 % eye drops 1 drp ophthalmic (eye) PRN PRN 07/11/25
dryness
desloratadine 5 mg tablet 5 mg PO DAILY Allergies 07/11/25
diclofenac sodium 3 % topical gel 1 applic topical PRN PRN pain 07/11/25
ferrous sulfate 325 mg (65 mg 325 mg PO DAILY Supplement 07/11/25
iron) tablet
furosemide 80 mg tablet 80 mg PO HS Fluid 07/11/25
Retention/Swelling
gabapentin 300 mg capsule 600 mg PO DAILY Pain 07/11/25
insulin aspart U-100 100 unit/mL 1 sliding scale dose SC 07/11/25
(3 mL) subcutaneous pen (Novolog DIRECTED Diabetes
FlexPen U-100 Insulin aspart)
insulin degludec 200 unit/mL (3 116 unit SC HS Diabetes 07/11/25
mL) subcutaneous pen (Tresiba
FlexTouch U-200 insulin)
levothyroxine 125 mcg tablet 125 mcg PO DAILY Thyroid 07/11/25
metoprolol tartrate 25 mg tablet 25 mg PO BID Blood Pressure 07/11/25
pregabalin 150 mg capsule 150 mg PO DAILY Pain 07/11/25
pregabalin 300 mg capsule 300 mg PO HS Pain 07/11/25
rivaroxaban 15 mg tablet (Xarelto) 15 mg PO BID Blood Clot 07/11/25
Prevention/Tx
semaglutide 2 mg/dose (8 mg/3 mL) 8 mg SC QWEEK Diabetes 07/11/25
subcutaneous pen injector (Ozempic)
solifenacin 5 mg tablet 5 mg PO DAILY Urinary Issue 07/11/25
tadalafil 5 mg tablet 5 mg PO .EVERY 3RD DAY Urinary 07/11/25
Issue
Review of Systems
-
All other systems: A 12 pt ROS was Negative except as stated above in HPI
Vital Signs
Temp Pulse Resp BP Pulse Ox
98.0 F 61 10 130/60 92
07/19/25 07:40 07/19/25 06:00 07/19/25 06:00 07/19/25 06:00 07/19/25 06:00
Physical Exam
Exam
General: NAD
HEENT: MMM, anicteric, no lymphadenopathy
Heart: Regular, 3/6 systolic murmurs
Lungs: CTA bilaterally
Abdomen: normal bowel sounds, soft, no tenderness, no rebound or guarding, no masses, bruits or ascites
Extremeties: no edema, Right BKA
Skin: no rashes
Results
WBC 7.0 10^3/uL (4.8-10.8) 07/19/25 05:35
Hgb 8.0 g/dL (13.0-18.0) L 07/19/25 05:35
Hct 24.0 % (39.0-52.0) L 07/19/25 05:35
MCV 94.1 fL (80.0-94.0) H 07/19/25 05:35
Plt Count 112 10^3/uL (130-400) L 07/19/25 05:35
Absolute Neuts (auto) 5.8 10^3/uL (1.4-6.5) 07/17/25 05:42
APTT Cancelled 07/16/25 08:29
Sodium 137 mmol/L (135-145) 07/19/25 05:35
Potassium 4.2 mmol/L (3.5-5.1) D 07/19/25 05:35
Chloride 103 mmol/L (98-107) 07/19/25 05:35
Carbon Dioxide 30 mmol/L (22-30) 07/19/25 05:35
BUN 31 mg/dl (9-20) H 07/19/25 05:35
Creatinine 3.8 mg/dL (0.7-1.3) H 07/19/25 05:35
Calcium 8.1 mg/dl (8.4-10.2) L 07/19/25 05:35
Total Bilirubin 0.4 mg/dl (0.2-1.3) 07/12/25 16:41
AST 32 U/L (17-59) 07/12/25 16:41
ALT 30 U/L (0-50) 07/12/25 16:41
Alkaline Phosphatase 78 U/L (38-126) 07/12/25 16:41
Hep Bs Antibody Negative 07/13/25 05:15
Hep B Core Total Ab Negative (Negative) 07/13/25 05:15
Hepatitis C Antibody Negative (Negative) 07/13/25 05:15
Diagnostic Image Results:
CT:
MPRESSION:
1. Mildly thickened and inflamed appearance of the proximal sigmoid colon suspicious for a mild colitis versus diverticulitis. Small amount of free fluid within the left paracolic gutter. No extraluminal gas or fluid collections.
2. Mild bilateral renal cortical volume loss.
3. Nonspecific mild interstitial disease within the lung bases.
4. Additional findings above.
XRAY:
IMPRESSION:
Nonspecific bowel gas pattern without signs of obstruction.
Moderate diffuse colonic stool burden may reflect constipation.
Prior GI Procedures:
EGD:
Colonoscopy:
Assessment / Plan
-
1. Anemia: Likely multifactorial, in the setting of acute renal failure, more related to anemia of chronic disease, has required transfusion though again has not had any gross bleeding. His stools were Hemoccult positive though again brown. His
pain was likely more related to relative constipation with resolution of pain after defecation, and possible some stercoral irritation accounting for his heme positive stool, though again no significant gross bleeding. His iron studies are normal.
At this point would be okay to continue anticoagulation from a GI standpoint unless signs of gross bleeding. Would also hold on any endoscopic intervention unless signs of gross bleeding. Will follow for now.
-
-
Thank you for consultation and allowing me to participate in the patient's care. Please call the organizational psychologist GI physician during the after hours with any questions or concerns.
--- NOTE | 2025-07-19 09:21 | W.PN.NEPH.PH ---
Today's Communication / Plan
-
Dialysis tomorrow
Tunneled catheter placement tomorrow
Assessment/Plan
-
IMP:
LYNN on CKD - ? Stage
Anion Gap Metabolic Acidosis secondary to the above
Hyperkalemia
Acute Hypoxemic Respiratory Insufficiency
Chronic CHfpHF
Diverticulitis / Colitis
Constipation
Leukocytosis with L Shift
ASCVD - h/o CABG
P Atrial Fibrillation
DM-II with Peripheral Neuropathy
Normocytic Anemia
Hypothyroidism
BPH
Obesity due to excess calories
Hypocalcemia
Hypomagnesemia
Hyperphosphatemia
PLan:
LYNN vs progresive CKD
serologies and paraprotein w/u neg, no hydro on CT
completed HDx3, cr increasing trend so no renal recovery noted though is non oliguric
requiring SC still, follow bladder scan 137cc today
next HD tomorrow
await records from [place]
follow h/h, prn transfusion, fe sat only 19%, likely IV fe with next HD
calcium improving, mild vit D def start D3 and calcium carb
Will have tunneled catheter placed tomorrow
d/w patient
-
-
Date of Service: July 19, 2025
CC / HPI / ROS
-
Chief Complaint:
LYNN
History of Present Illness:
LYNN/Cr peak at 10, down to 4.2 today 5.3 uptrending
non oliguric but needed SC
Review of Systems:
no CP/SOB at rest
Nonoliguric
Labs
-
Labs:
WBC 7.0 10^3/uL (4.8-10.8) 07/19/25 05:35
RBC 2.55 10^6/uL (4.70-6.10) L 07/19/25 05:35
Hgb 8.0 g/dL (13.0-18.0) L 07/19/25 05:35
Hct 24.0 % (39.0-52.0) L 07/19/25 05:35
Plt Count 112 10^3/uL (130-400) L 07/19/25 05:35
Sodium 137 mmol/L (135-145) 07/19/25 05:35
Potassium 4.2 mmol/L (3.5-5.1) D 07/19/25 05:35
Chloride 103 mmol/L (98-107) 07/19/25 05:35
Carbon Dioxide 30 mmol/L (22-30) 07/19/25 05:35
BUN 31 mg/dl (9-20) H 07/19/25 05:35
Creatinine 3.8 mg/dL (0.7-1.3) H 07/19/25 05:35
eGFR 15.33 07/19/25 05:35
Glucose 143 mg/dl (70-99) H 07/19/25 05:35
Calcium 8.1 mg/dl (8.4-10.2) L 07/19/25 05:35
Phosphorus 10.2 mg/dl (2.5-4.5) H 07/12/25 05:34
Jfa-B-Frouxipbyfy Pept 3020 pg/ml 07/11/25 22:05
Albumin 3.1 g/dl (3.5-5.0) L 07/12/25 16:41
Physical Exam
-
Vital Signs:
Vital Signs
Temp Pulse Resp BP Pulse Ox
98.0 F 65 16 138/69 94
07/19/25 07:40 07/19/25 08:00 07/19/25 08:00 07/19/25 08:00 07/19/25 08:00
Cardiovascular:: Regular rate and rhythm
Respiratory:: Bilateral: CTA (decreased BS)
Lung Excursion:: Normal
Abdomen:: Nontender and Soft
Bowel Sounds:: Normal
Extremity Edema:: None: Left:
Whitney Catheter: No
Other Findings::
cl HERRON
[2025-07-19] MEDS: NOVOLOG FLEXPEN-MODERATE RESISTANCE SC (09:28)
[2025-07-19] MEDS: LOPRESSOR 25 MG PO ×2 (09:30→19:51)
[2025-07-19] MEDS: LOW STRENGTH ASPIRIN 81 MG PO (09:30)
[2025-07-19] MEDS: FLOMAX 0.4 MG PO (09:30)
[2025-07-19] MEDS: PROTONIX 40 MG PO (09:31)
[2025-07-19] MEDS: VITAMIN D3 (cholecalciferol) 25 MCG PO (09:31)
[2025-07-19] MEDS: OSCAL CAL 500 500 MG PO ×2 (09:31→19:51)
[2025-07-19] MEDS: SENOKOT-S 1 TABLET PO ×2 (09:32→19:51)
[2025-07-19 09:41] LABS: Glucose - Point of Care 128 mg/dl (70-99)
--- NOTE | 2025-07-19 10:04 | PTCARENOTE ---
Patient NPO for HD tunnled cath placement in the afternoon. Pt is to have HD tomorrow. Patient is currently on 2L o2 spao2 91%--94%. AAOx3 forgetful at times, [place] [facility]. Whitney catheter for retention, failed urine trial. VS stable,afebrile. Call stoddard
in reach. Will monitor.
--- NOTE | 2025-07-19 11:39 | CM ---
Per All scripts patient accepted to [facility] however, [facility] HD beds are limited in availability. No response as of yet for HD with [facility] at this time. CM will follow with patient for discharge planning needs.
Plan; SNF vs home with HD; pending chair set up
[2025-07-19 12:25] LABS: Glucose - Point of Care 209 mg/dl (70-99)
--- NOTE | 2025-07-19 12:47 | W.PN.HOSP.TC ---
Today's Communication/Plan
-
pending permacath and outpatient HD with decision if rehab accepted by family and patient
Assessment / Plan
Assessment / Plan
80yo M with PMHX of BPH, HFpEF, CAD s/p CABG, paroxysmal Afib, DM, hypothyroidism, obesity, CKD came with AMS and worsening renal failure, initiated on new HD. Diastolic CHF exacerbation as per RH cath on 07/14/25. Also concern for colitis with
constipation on admission
A/P:
#LYNN on CKD, unclear stage with metabolic acidosis
#Hyperkalemia
Old medical records still pending
Nephrology follows: initiated HD on temporary catheter on 07/13/25, possible plan for perm cath
follow BPH
#Acute metabolic encephalopathy
most likely 2/2 LYNN with uremia
resolved
#Anemia 2/2 CKD
Epo as per Nephrology
stool brown color
FOBT positive in ED - GI eval - cont PPI, no plan for intervention
#Colitis vs uncomplicated diverticulitis on admission
completed 7 days Ceftriaxone/Flagyl
LLQ pain resolved
Colonoscopy in 4-6 weeks advised
#Pancreatic atrophy
Outpatient GI
#Afib, unspecified
#CAD stable
#Acute hypoxic respiratory insufficiency 2/2 Acute on chronic HFpEF
#NSVT
post right heart catheterization found to be volume overloaded on 07/14/25
Cardio follows: amiodarone on hold, switched to Eliquis, volume mgmt with HD and GDMT
#BPH
watch for retention
passed TOV on 07/15/25
#DM type 2 with neuropathy
cont home meds
Insulin SS, Accucghecks, DM diet
#Hypocalcemia
replete and follow
#Hypothyroidism
#Obesity BMI 34.5
cont hoem meds
decrease calorie intake
DVT ppx Eliquis
Full code
I have spent at least 58min reviewing hcart, test results, communication with consultants, over the phone and providing direct patient care
Anticipated Discharge: > 48 hours
Subjective/Interval History
-
Date of Service: July 19, 2025
Objective Data
-
Labs:
Laboratory Results
07/19/25
05:35
WBC 7.0
Hgb 8.0 L
Hct 24.0 L
Plt Count 112 L
Sodium 137
Potassium 4.2 D
Chloride 103
Carbon Dioxide 30
BUN 31 H
Creatinine 3.8 H
Glucose 143 H
Calcium 8.1 L
Vital Signs:
Vital Signs
Temp Pulse Resp BP Pulse Ox
97.9 F 65 16 138/69 94
07/19/25 11:37 07/19/25 08:00 07/19/25 08:00 07/19/25 08:00 07/19/25 08:00
I&O
07/18/25 07/19/25 07/20/25
06:59 06:59 06:59
Intake Total 580 / 580 250 / 250 200 / 200
Output Total 800 / 800 650 / 650
Balance -220 / -220 -400 / -400 200 / 200
Review of Systems
-
History Source: Patient
All other systems: Reviewed and negative
Physical Exam
-
General: No Apparent Distress
HEENT: Normocephalic
GI: Soft, Nontender and Nondistended
Genito-urinary: Clear Urine and Whitney
Musculoskeletal: No Clubbing, No Cyanosis and No Edema
Neuro: Awake, Alert, Oriented and AO x 3
Psych: Calm
[2025-07-19] MEDS: NOVOLOG FLEXPEN-MODERATE RESISTANCE 3 UNITS SC ×2 (13:00→17:14)
--- NOTE | 2025-07-19 16:29 | PTCARENOTE ---
Patient back from IR. Patient awake alert. VS stable 136/65,62,16, 97% on 2L,afebrile. Patient resting comfortably in bed. Call stoddard in reach.
[2025-07-19 17:22] LABS: Glucose - Point of Care 242 mg/dl (70-99)
[2025-07-19] MEDS: LIPITOR 80 MG PO (19:51)
[2025-07-19 21:23] LABS: Glucose - Point of Care 210 mg/dl (70-99)
[2025-07-19] MEDS: MIRALAX 17 GRAMS PO (21:41)
[2025-07-19] MEDS: LANTUS 0.08 UNITS SC (21:41)
[2025-07-20] VITALS (42 sets, daily range): BP systolic 107–179; BP diastolic 59–137; BMI 33.5
--- NOTE | 2025-07-20 05:43 | PTCARENOTE ---
Cared for pt overnight. NSR 1st degree >QT. Pt c/o constipation, reached out to END MAKER for miralax. Pt had XL formed dark BM. Pt coughed up dark brown sputum, END MAKER made aware, no sputum culture order put in. Whitney in place draining dark yellow urine with
sediment. R HD tunneled cath in place. Remains on 2LNC. No other issues at this time.
--- NOTE | 2025-07-20 05:59 | W.PN.GI.CBS2 ---
Today's Communication / Plan
-
Please see assessment and plan for details.
Assessment / Plan
-
1. Anemia: Likely multifactorial, in the setting of acute renal failure, more related to anemia of chronic disease, has required transfusion though again has not had any gross bleeding. He again has no signs of bleeding overnight and has been
stable. His discomfort likely more related to constipation, much better after defecation. His iron percent saturation was minimally low, though other iron studies normal, no signs of acute blood loss now, and again anemia mostly related to his
acute renal failure and anemia of chronic disease. Will hold on any GI workup unless signs of active significant bleeding.
We will sign off for now, please call back with any further questions.
Subjective
Subjective
Date of Service: July 20, 2025
Patient feeling well, slept well overnight without difficulty. Had large formed, brown bowel movement yesterday. No signs of blood, no black stools. Eating without difficulty.
Objective
Data Reviewed
Laboratory Data:
Laboratory Results
APTT Cancelled 07/16/25 08:29
Phosphorus 10.2 mg/dl (2.5-4.5) H 07/12/25 05:34
Magnesium 1.7 mg/dl (1.6-2.3) 07/14/25 05:10
Total Bilirubin 0.4 mg/dl (0.2-1.3) 07/12/25 16:41
AST 32 U/L (17-59) 07/12/25 16:41
ALT 30 U/L (0-50) 07/12/25 16:41
Alkaline Phosphatase 78 U/L (38-126) 07/12/25 16:41
Vital Signs and I&O:
Vital Signs
Temp Pulse Resp BP Pulse Ox
98.3 F 64 14 129/94 97
07/20/25 03:20 07/20/25 00:00 07/20/25 00:00 07/20/25 00:00 07/19/25 20:25
I&O
07/18/25 07/19/25 07/20/25
06:59 06:59 06:59
Intake Total 580 / 580 250 / 250 440 / 440
Output Total 800 / 800 650 / 650 1730 / 1730
Balance -220 / -220 -400 / -400 -1290 / -1290
Physical Exam
Physical Exam
General: NAD
Abdomen: normal bowel sounds, soft, no tenderness, no masses or bruits, no ascites
[2025-07-20] MEDS: SYNTHROID 150 MCG PO (06:03)
[2025-07-20] MEDS: STERILE WATER FOR INJECTION IV (06:03)
[2025-07-20 07:35] LABS: Glucose - Point of Care 155 mg/dl (70-99)
--- NOTE | 2025-07-20 08:23 | PTCARENOTE ---
Received report from ricardo RN. Patient AAOx3. No events reported overnight. VS stable. Receiving HD this AM. Whitney catheter to be removed after HD as per Dr. Fall. Will continue to monitor.
[2025-07-20 09:11] LABS: Hematocrit 24.8 % (39.0-52.0); Hemoglobin 7.9 g/dL (13.0-18.0)
[2025-07-20] MEDS: RETACRIT 10000 UNITS IV (09:20)
[2025-07-20] MEDS: NOVOLOG FLEXPEN-MODERATE RESISTANCE 1 UNITS SC (09:45)
[2025-07-20] MEDS: PROTONIX 40 MG PO (10:08)
[2025-07-20] MEDS: LOW STRENGTH ASPIRIN 81 MG PO (10:08)
[2025-07-20] MEDS: VITAMIN D3 (cholecalciferol) 25 MCG PO (10:08)
[2025-07-20] MEDS: OSCAL CAL 500 500 MG PO ×2 (10:09→20:25)
[2025-07-20] MEDS: FLOMAX 0.4 MG PO (10:09)
[2025-07-20] MEDS: SENOKOT-S PO (10:11)
[2025-07-20] MEDS: TYLENOL 650 MG PO ×2 (10:12→20:21)
[2025-07-20 10:27] LABS: Blood Urea Nitrogen 38 mg/dl (9-20); Calcium 8.2 mg/dl (8.4-10.2); Carbon Dioxide 29 mmol/L (22-30); Chloride 104 mmol/L (98-107); Estimated Creatinine Clearance 18 ml/min; Glucose 135 mg/dl (70-99); Potassium 3.8 mmol/L (3.5-5.1); Sodium 138 mmol/L (135-145); eGFR 12.86
--- NOTE | 2025-07-20 11:02 | W.PN.HOSP.TC ---
Today's Communication/Plan
-
adjust insulin
TOV today
Wean off O2 as possible, chest XR 2 view due to persistent hypoxia
Placement to STR
Assessment / Plan
Assessment / Plan
80yo M with PMHX of BPH, HFpEF, CAD s/p CABG, paroxysmal Afib, DM, hypothyroidism, obesity, CKD came with AMS and worsening renal failure, initiated on new HD. Diastolic CHF exacerbation as per RH cath on 07/14/25. Also concern for colitis with
constipation on admission. Planned for outpatient HD as tunneled catheter placed on 07/19/25. Pending d/c to rehab
A/P:
#LYNN on CKD, unclear stage with metabolic acidosis
#Hyperkalemia
Old medical records still pending
Nephrology follows: initiated HD on temporary catheter on 07/13/25, possible plan for perm cath
follow BPH
#Acute hypoxic insufficiency
2/2 volume overload cannot exclude ALVIN
wean off O2 as proceeding with diuresis
#Acute metabolic encephalopathy
most likely 2/2 LYNN with uremia
resolved
#Anemia 2/2 CKD
Epo as per Nephrology
stool brown color
FOBT positive in ED - GI eval - cont PPI, no plan for intervention
#Colitis vs uncomplicated diverticulitis on admission
completed 7 days Ceftriaxone/Flagyl
LLQ pain resolved
Colonoscopy in 4-6 weeks advised
#Pancreatic atrophy
Outpatient GI
#Afib, unspecified
#CAD stable
#Acute hypoxic respiratory insufficiency 2/2 Acute on chronic HFpEF
#NSVT
post right heart catheterization found to be volume overloaded on 07/14/25
Cardio follows: amiodarone on hold, switched to Eliquis, volume mgmt with HD and GDMT
#BPH
watch for retention
failed TOV on 07/15/25, re-attempting on 07/20/25, might need to accept larger PVR up to 500ml, but depending on symptoms (if not painful) and if patient can urinate by himself at all. IF still retention -0 avoid Straight cath, insert Whitney and
outpatient Urologist for urodynamic studies
#DM type 2 with neuropathy
cont home meds
adjust basal/bolus
Insulin SS, Accucghecks, DM diet
#Hypocalcemia
replete and follow
#Hypothyroidism
#Obesity BMI 34.5
cont hoem meds
decrease calorie intake
DVT ppx Eliquis
Full code
I have spent at least 51min reviewing chart, test results, communication with consultants, over the phone and providing direct patient care
Anticipated Discharge: > 48 hours
Subjective/Interval History
-
Date of Service: July 20, 2025
Objective Data
-
Labs:
Laboratory Results
07/20/25 07/20/25
06:00 09:01
Hgb Pending 7.9 L
Hct Pending 24.8 L
Sodium 138
Potassium 3.8
Chloride 104
Carbon Dioxide 29
BUN 38 H
Creatinine 4.4 H*
Glucose 135 H
Calcium 8.2 L
Vital Signs:
Vital Signs
Temp Pulse Resp BP Pulse Ox
98.0 F 65 18 146/68 95
07/20/25 07:21 07/20/25 08:00 07/20/25 08:00 07/20/25 08:00 07/20/25 08:00
I&O
07/19/25 07/20/25 07/21/25
06:59 06:59 06:59
Intake Total 250 / 250 440 / 440 260 / 260
Output Total 650 / 650 1730 / 1730
Balance -400 / -400 -1290 / -1290 260 / 260
Review of Systems
-
History Source: Patient
All other systems: Reviewed and negative
Physical Exam
-
General: No Apparent Distress
HEENT: Normocephalic
Respiratory: Clear to Auscultation
Cardiac: Regular Rhythm
GI: Soft
Genito-urinary: Clear Urine and Whitney
Skin: Warm
Neuro: Awake, Alert, Oriented and AO x 3
Psych: Calm
[2025-07-20] MEDS: HEPARIN 4300 UNITS INTRACATH (11:33)
[2025-07-20 11:36] LABS: Glucose - Point of Care 125 mg/dl (70-99)
--- NOTE | 2025-07-20 11:39 | W.PN.NEPH.HD ---
Addendum entered and electronically signed by Staci Giraldo MD 07/20/25 12:28:
VT noted per primary
Original Note:
Assessment
-
pt seen during HD
vitals stable
limited UF as he seem to be non oliguric and decreasing wt
reviewed old labs in the chart, cr seem to be around 2 back in Sep, cr elevated at the least 2022, CKD3b
hoping there could be expected renal recovery however will not be surprised if remains on HD long term
no renal recovery noted currently with elevated cr pre HD
tunneled catheter functions fine
need HD unit placement
d/w pt
Progress Note - Hemodialysis
-
Date of Service: July 20, 2025
Duration: 30 minutes and 3 hours
Potassium Bath: 3
Calcium Bath: 2.5
Opti-Dialyzer: 160
Ultrafiltration: Other (1kg)
Blood Flow: 400
Dialysate Flow: 600
Heparin: no
EPO: [id number]
--- NOTE | 2025-07-20 11:40 | PTCARENOTE ---
Patient out of bed to chair with PT. Patient is a heavy assist x2 to stand and pivot. From chair assisted patient to commode. Patient had BM and voided. Patient is current in chair with family in room at bedside.
--- NOTE | 2025-07-20 13:33 | PTCARENOTE ---
Patient had HD today. One kilo removed. Whitney catheter d/c as per MD order at 12:30. MD to be notified if patient cannot void and has 500mls in bladder scan.
[2025-07-20] MEDS: LOPRESSOR PO (14:07)
[2025-07-20] MEDS: NOVOLOG FLEXPEN 2 UNITS SC ×2 (14:09→18:24)
[2025-07-20] MEDS: NOVOLOG FLEXPEN-MODERATE RESISTANCE SC ×2 (14:10→18:25)
[2025-07-20 16:31] LABS: Glucose - Point of Care 146 mg/dl (70-99)
--- NOTE | 2025-07-20 16:38 | CM ---
F/U: DIANA Barbara received a call that patient is accepted to [facility], but wants April Henleyponcho now. CM faxed clinical and patient was clinically accepted- they are working on the financial piece. Patient has Medicare A only and [employer] Insurance.
Now DIANA spoke to Tita about facilities, the choice is [facility] knowing that there are not many options with SNF HD. DIANA was told that patient is ready to obtained auth from [employer]:
#[id number] and Ambulance Auth: #[id number] for Acute Care.
had some questions so asked Hospitalist to call her. Hospitalist TT back to say that patient will not leave now because said there is blood in sputum. [facility] reported back that the earliest he can discharge is Friday (due to HD schedule)
and as long as our Nepho is fine with him getting HD on Friday with us then the next is Friday with them, then they are fine.
All communicated to Hospitalist. PLAN: SNF when ready with HD- have to obtain authorization again.
--- NOTE | 2025-07-20 16:54 | W.PN.UPDATE ---
Update Note
Progress Note Update
as per conversation with - she witnessed significant brown, bloody sputum at the night prior. With clean XR but persistent hypoxia- reasonable to do CT chest, send antiGBM and hold discharge as per conversation with over the phone
--- NOTE | 2025-07-20 17:00 | CM ---
F/U: DIANA Barbara received a call that patient is accepted to [facility], but wants [facility]le[facility] now. CM faxed clinical and patient was clinically accepted- they are working on the financial piece. Patient has Medicare A only and Personal
[employer] Insurance.
Now DIANA spoke to Tita about facilities, the choice is [facility] knowing that there are not many options with SNF HD. DIANA was told that patient is ready to obtained auth from [employer]:
#[id number] and Ambulance Auth: #[id number] for Acute Care.
had some questions so asked Hospitalist to call her. Hospitalist TT back to say that patient will not leave now because said there is blood in sputum. [facility] reported back that the earliest he can discharge is Friday (due to HD schedule)
and as long as our Nepho is fine with him getting HD on Friday with us then the next is Friday with them, then they are fine.
All communicated to Hospitalist. PLAN: SNF when ready with HD- have to obtain authorization again.
Initialized on 07/20/25 16:38 - END OF NOTE
--- NOTE | 2025-07-20 18:45 | PTCARENOTE ---
Patient has not voided since removal of emmanuel catheter. Bladder scanned at 1815 for 169mls. Will continue to monitor urine output. Patient to be transferred to [facility] today. Order cancelled by . Received order for CT scan of lungs.
Patient back from scan. Only complaint at this time is patient is very tired from HD today and just wants to sleep. Patient on 2L of o2 with pulse ox 92%-94%. Patient denies shortness of breath. Will monitor.
[2025-07-20] MEDS: SENOKOT-S 1 TABLET PO (20:23)
[2025-07-20] MEDS: LOPRESSOR 25 MG PO (20:24)
[2025-07-20] MEDS: LIPITOR 80 MG PO (20:24)
[2025-07-20 21:23] LABS: Glucose - Point of Care 211 mg/dl (70-99)
--- NOTE | 2025-07-20 21:25 | PTCARENOTE ---
Assumed care of pt from day shift RN after change of shift report, waking rounded preformed. Pt is aaox3, at bedside. states he is very tired after dialysis today. Pt with back pain. prn dose of Tylenol admin per orders in oct. pt assisted by 2
credit risk management director oob to chair with rw and prosthesis in place. states he feels relief of pain while resting in chair vs. bed. assessment as documented. call light in reach. safe environment maintained.
[2025-07-20] MEDS: LYRICA 75 MG PO (22:02)
[2025-07-20] MEDS: LANTUS 0.08 UNITS SC (22:29)
[2025-07-21 01:50] VITALS: BP 143/68
[2025-07-21 02:00] VITALS: BP 134/64
[2025-07-21 03:55] VITALS: BMI 33.1
[2025-07-21] MEDS: SYNTHROID 150 MCG PO (04:15)
[2025-07-21] MEDS: STERILE WATER FOR INJECTION IV (04:16)
[2025-07-21 05:09] LABS: Hematocrit 27.0 % (39.0-52.0); Hemoglobin 8.7 g/dL (13.0-18.0); Mean Corp Hgb Conc. 32.2 g/dL (33.0-37.0); Mean Corpuscular Volume 97.5 fL (80.0-94.0); Nucleated Red Blood Cells % 0 % (-); Platelet Count 146 10^3/uL (130-400); Red Cell Dist. Width 15.7 % (11.5-14.5)
[2025-07-21 05:12] LABS: Blood Urea Nitrogen 24 mg/dl (9-20); Calcium 8.4 mg/dl (8.4-10.2); Carbon Dioxide 29 mmol/L (22-30); Chloride 100 mmol/L (98-107); Estimated Creatinine Clearance 21 ml/min; Glucose 169 mg/dl (70-99); Potassium 4.5 mmol/L (3.5-5.1); Sodium 136 mmol/L (135-145); eGFR 15.33
[2025-07-21 06:00] VITALS: BP 137/62
[2025-07-21 08:00] VITALS: BP 135/78
[2025-07-21 08:21] LABS: Glucose - Point of Care 187 mg/dl (70-99)
--- NOTE | 2025-07-21 09:05 | W.PN.HOSP.TC ---
Today's Communication/Plan
-
dc
Assessment / Plan
Assessment / Plan
80yo M with PMHX of BPH, HFpEF, CAD s/p CABG, R AKA, paroxysmal Afib, DM, hypothyroidism, obesity, CKD came with AMS and worsening renal failure, initiated on new HD. Found colitis and diverticulitis, completed Abx. Recommended outpatient
colonoscopy - referral provided. Diastolic CHF exacerbation as per RH cath on 07/14/25. Planned for outpatient HD as tunneled catheter placed on 07/19/25. PT/OT for STR. CM arranged outpatient HD. Medically stable for d/c to STR
A/P:
#LYNN on CKD, unclear stage with metabolic acidosis
#Hyperkalemia
Old medical records still pending
Nephrology follows: initiated HD on temporary catheter on 07/13/25, possible plan for perm cath
follow BPH
#Reported hematemesis by
Patient in fact stated that he had some blood when he forcefully blew his nose
CT chest without concerning findings, just atelectasis
Hgb stable
anti GBM Ab will not have clinical significance with absent overt hematemesis
#Acute hypoxic insufficiency 2/2 atelectasis
#ALVIN
No concern for pneumonia as no leukocytosis, left shift on CBC, no cough and no fever
Outpatient sleep study
Incentive spirometry
2/2 volume overload cannot exclude ALVIN
wean off O2 as proceeding with diuresis
#Acute metabolic encephalopathy
most likely 2/2 LYNN with uremia
resolved
#Anemia 2/2 CKD
Epo as per Nephrology
stool brown color
FOBT positive in ED - GI eval - cont PPI, no plan for intervention
#Colitis vs uncomplicated diverticulitis on admission
completed 7 days Ceftriaxone/Flagyl
LLQ pain resolved
Colonoscopy in 4-6 weeks advised
#Pancreatic atrophy
Outpatient GI
#Afib, unspecified
#CAD stable
#Acute hypoxic respiratory insufficiency 2/2 Acute on chronic HFpEF
#NSVT
post right heart catheterization found to be volume overloaded on 07/14/25
Cardio follows: amiodarone on hold, switched to Eliquis, volume mgmt with HD and GDMT
#BPH
watch for retention
failed TOV on 07/15/25, re-attempting on 07/20/25, might need to accept larger PVR up to 500ml, but depending on symptoms (if not painful) and if patient can urinate by himself at all. IF still retention -0 avoid Straight cath, insert Whitney and
outpatient Urologist for urodynamic studies
#DM type 2 with neuropathy
cont home meds
adjust basal/bolus
Insulin SS, Accucghecks, DM diet
#Hypocalcemia
replete and follow
#Hypothyroidism
#Obesity BMI 34.5
cont hoem meds
decrease calorie intake
DVT ppx Eliquis
Full code
I have spent at least 51min reviewing chart, test results, communication with consultants, over the phone and providing direct patient care
Anticipated Discharge: Today
Subjective/Interval History
-
Date of Service: July 21, 2025
Objective Data
-
Labs:
Laboratory Results
07/20/25 07/21/25
06:00 04:26
WBC 7.7
Hgb Cancelled 8.7 L
Hct Cancelled 27.0 L
Plt Count 146 D
Sodium 136
Potassium 4.5
Chloride 100
Carbon Dioxide 29
BUN 24 H
Creatinine 3.8 H
Glucose 169 H
Calcium 8.4
Vital Signs:
Vital Signs
Temp Pulse Resp BP Pulse Ox
97.6 F 63 17 134/64 96
07/21/25 03:12 07/21/25 06:00 07/21/25 06:00 07/21/25 02:00 07/21/25 06:00
I&O
07/20/25 07/21/25 07/22/25
06:59 06:59 06:59
Intake Total 440 / 440 785 / 785
Output Total 1730 / 1730 550 / 550
Balance -1290 / -1290 235 / 235
Review of Systems
-
History Source: Patient
All other systems: Reviewed and negative
Physical Exam
-
General: No Apparent Distress
HEENT: Normocephalic
Cardiac: Regular Rhythm
Neuro: Awake, Alert, Oriented and AO x 3
Psych: Calm
--- NOTE | 2025-07-21 09:14 | W.DCSUMMARY ---
Discharge Summary
Discharge Data
Date of Admission: 07/12/25
Date of Discharge: 07/21/25
-
Pending Results: No
Hospital Course
80yo M with PMHX of BPH, HFpEF, CAD s/p CABG, R AKA, paroxysmal Afib, DM, hypothyroidism, obesity, CKD came with AMS and worsening renal failure, initiated on new HD. Found colitis and diverticulitis, completed Abx. Recommended outpatient
colonoscopy - referral provided. Diastolic CHF exacerbation as per RH cath on 07/14/25. Planned for outpatient HD as tunneled catheter placed on 07/19/25. PT/OT for STR. CM arranged outpatient HD. Medically stable for d/c to STR. Passed TOV on 07/20/25
I have spent at least 51min reviewing chart, test results, communication with consultants, over the phone and providing direct patient care
Patient was managed for:
#LYNN on CKD, unclear stage with metabolic acidosis
#Hyperkalemia
#Reported hematemesis by
#Acute hypoxic insufficiency 2/2 atelectasis
#ALVIN
#Acute metabolic encephalopathy
#Anemia 2/2 CKD
#Colitis vs uncomplicated diverticulitis on admission
#Pancreatic atrophy
#Afib, unspecified
#CAD stable
#Acute hypoxic respiratory insufficiency 2/2 Acute on chronic HFpEF
#NSVT
#BPH
#DM type 2 with neuropathy
#Hypocalcemia
#Hypothyroidism
#Obesity BMI 34.5
Discharge Plan
-
Patient Disposition: [facility]NF
Discharge Diagnosis/Procedures: LYNN
Diet: Diabetic, Carb Controlled and Other diet
Additional Diets: renal
Activity: As tolerated
Blood Work: CBC every week
Instructions: *PCP/Other Sulphate Tester Heart Failure Instructions
Referrals:
Luis Armando Salas MD [Active, Cardiology]
Elizabeth Nolasco DO [Family Provider] - in less than 1 week
Referral Note: sleep study
Vuppali,Staci, MD [Active, Nephrology]
Esmer Estrella DO [Active, Gastroenterology] - in four to six weeks
Referral Note: consider colonoscopy
Additional Discharge Medication Instructions: COntinue incentive spirometry q1h while awake
Prescriptions:
New
atorvastatin 80 mg Tablet
80 mg PO DAILY@2000 Qty: 30 0RF
tamsulosin 0.4 mg Capsule
0.4 mg PO DAILY Qty: 30 0RF
aspirin 81 mg Tablet,Chewable
81 mg PO DAILY Qty: 30 0RF
Eliquis 2.5 mg Tablet
2.5 mg PO BID Qty: 60 0RF
gabapentin 300 mg Capsule
300 mg PO DAILY Qty: 30 0RF
insulin aspart U-100 100 unit/mL (3 mL) Insulin Pen
2 unit SC AC Qty: 15 0RF
sennosides-docusate sodium [Senna Plus] 8.6-50 mg Tablet
1 tab PO BID Qty: 60 0RF
calcium carbonate 500 mg calcium (1,250 mg) Tablet
500 mg PO BID Qty: 30 0RF
pantoprazole 40 mg Tablet,Delayed Release (Dr/Ec)
40 mg PO DAILY Qty: 30 0RF
acetaminophen 325 mg Tablet
650 mg PO Q4HPRN PRN (Reason: Mild Pain / Temp > 101) Qty: 90 0RF
pregabalin 75 mg Capsule
75 mg PO HS Qty: 3 0RF
Continued
ferrous sulfate 325 mg (65 mg iron) Tablet
325 mg PO DAILY
levothyroxine 125 mcg Tablet
125 mcg PO DAILY
metoprolol tartrate 25 mg Tablet
25 mg PO BID
Ozempic 2 mg/dose (8 mg/3 mL) Pen Injector
8 mg SC QWEEK
Changed
insulin degludec [Tresiba FlexTouch U-200] 200 unit/mL (3 mL) Insulin Pen
8 unit SC HS Qty: 0 0RF
Discontinued
atorvastatin 80 mg Tablet
80 mg PO HS
diclofenac sodium 3 % Gel
1 applic TOPICAL PRN PRN (Reason: pain)
amiodarone 200 mg Tablet
200 mg PO DAILY
cromolyn 4 % Drops
1 drp OPHTHALMIC (EYE) PRN PRN (Reason: dryness)
furosemide 80 mg Tablet
80 mg PO HS
desloratadine 5 mg Tablet
5 mg PO DAILY
gabapentin 300 mg Capsule
600 mg PO DAILY
insulin aspart U-100 [Novolog FlexPen U-100 Insulin] 100 unit/mL (3 mL) Insulin Pen
1 sliding scale dose SC DIRECTED
tadalafil 5 mg Tablet
5 mg PO .EVERY 3RD DAY
solifenacin 5 mg Tablet
5 mg PO DAILY
pregabalin 150 mg Capsule
150 mg PO DAILY
Xarelto 15 mg Tablet
15 mg PO BID
pregabalin 300 mg Capsule
300 mg PO HS
Discharge Orders:
Discharge Patient (As Directed); Ordered 07/21/25
Ordered By: Gm Fall
Discharge Date and Time
Print Language: URDU
[2025-07-21] MEDS: NOVOLOG FLEXPEN 2 UNITS SC (09:32)
[2025-07-21] MEDS: SENOKOT-S 1 TABLET PO (09:33)
[2025-07-21] MEDS: NOVOLOG FLEXPEN-MODERATE RESISTANCE 1 UNITS SC (09:33)
[2025-07-21] MEDS: FLOMAX 0.4 MG PO (09:33)
[2025-07-21] MEDS: OSCAL CAL 500 500 MG PO (09:33)
[2025-07-21] MEDS: PROTONIX 40 MG PO (09:34)
[2025-07-21] MEDS: LOW STRENGTH ASPIRIN 81 MG PO (09:34)
[2025-07-21] MEDS: NEURONTIN 300 MG PO (09:34)
[2025-07-21] MEDS: LOPRESSOR 25 MG PO (09:34)
[2025-07-21] MEDS: VITAMIN D3 (cholecalciferol) 25 MCG PO (09:34)
[2025-07-21 10:00] VITALS: BP 140/76
--- NOTE | 2025-07-21 10:45 | PTCARENOTE ---
Addendum entered by Araceli Cross RN 07/21/25 11:16:
Attempted again to call report to [facility]. transferred then disconnected again. Assisted CM with questions regarding HD catheter to clarify for [facility].
Original Note:
Attempted to call report to [facility]. disconnected x4. Finally transferred to voicemail and left message for SHANNON Rivers.
--- NOTE | 2025-07-21 11:04 | CM ---
Addendum entered by Barbara Smith 07/21/25 11:18:
Dialysis Tunneled Catheter report faxed to [facility]- F: [phone] per their request.
Original Note:
F/U: [facility] called and said they are willing to accept patient today if they can dialyze today. DIANA Jimenez reached out to Hospitalist who called the then TT back to say that patient can discharge.
DIANA Jimenez had to arrange for early so it is 12noon and he will be dialyzed at 3:30pm. DIANA was able to use current auth:
#[id number] and Ambulance Auth: #[id number] for Acute Care Ambulance.
Report: #[phone] ext: [phone]
Fax: #[phone]
DIANA Jimenez recieved call from [facility], that he is accepted as Outpatient, who gave time for MWF at 2PM, so asked them to make it nocturnal per the request so April will look into this while the patient is at [facility]. April will
also reach out [facility] to this week to let them know he is accepted and follow up for DC from there. PLAN: SNF at [facility].
--- NOTE | 2025-07-21 13:17 | W.PN.NEPH.PH ---
Today's Communication / Plan
-
ok for d/c
Assessment/Plan
-
IMP:
LYNN on CKD - ? Stage
Anion Gap Metabolic Acidosis secondary to the above
Hyperkalemia
Acute Hypoxemic Respiratory Insufficiency
Chronic CHfpHF
Diverticulitis / Colitis
Constipation
Leukocytosis with L Shift
ASCVD - h/o CABG
P Atrial Fibrillation
DM-II with Peripheral Neuropathy
Normocytic Anemia
Hypothyroidism
BPH
Obesity due to excess calories
Hypocalcemia
Hypomagnesemia
Hyperphosphatemia
PLan:
LYNN with CKD-baseline cr at 1.8-2 since 2022, last cr 2 in Apr
serologies and paraprotein w/u neg, no hydro on CT
cr uptrending pre HD and no renal recovery noted though is non oliguric
given that he had CKD and most recent cr 2-there could be potential for recovery which needs to be seen
off emmanuel and , follow bladder scan 156cc
follow h/h, hb better at 8.7
calcium improving, mild vit D def start D3 and calcium carb
d/w patient
d/c to [facility] TTS schedule,he will have short HD today
spoke to [facility]
-
-
Date of Service: July 21, 2025
CC / HPI / ROS
-
Chief Complaint:
LYNN
History of Present Illness:
LYNN/Cr peak at 10, HD started
non oliguric but needed SC, not lately
Review of Systems:
no CP/SOB at rest
Nonoliguric
Labs
-
Labs:
WBC 7.7 10^3/uL (4.8-10.8) 07/21/25 04:26
RBC 2.77 10^6/uL (4.70-6.10) L 07/21/25 04:26
Hgb 8.7 g/dL (13.0-18.0) L 07/21/25 04:26
Hct 27.0 % (39.0-52.0) L 07/21/25 04:26
Plt Count 146 10^3/uL (130-400) D 07/21/25 04:26
Sodium 136 mmol/L (135-145) 07/21/25 04:26
Potassium 4.5 mmol/L (3.5-5.1) 07/21/25 04:26
Chloride 100 mmol/L (98-107) 07/21/25 04:26
Carbon Dioxide 29 mmol/L (22-30) 07/21/25 04:26
BUN 24 mg/dl (9-20) H 07/21/25 04:26
Creatinine 3.8 mg/dL (0.7-1.3) H 07/21/25 04:26
eGFR 15.33 07/21/25 04:26
Glucose 169 mg/dl (70-99) H 07/21/25 04:26
Calcium 8.4 mg/dl (8.4-10.2) 07/21/25 04:26
Phosphorus 10.2 mg/dl (2.5-4.5) H 07/12/25 05:34
Rly-E-Weubgvarljt Pept 3020 pg/ml 07/11/25 22:05
Albumin 3.1 g/dl (3.5-5.0) L 07/12/25 16:41
Physical Exam
-
Vital Signs:
Vital Signs
Temp Pulse Resp BP Pulse Ox
97.8 F 70 14 140/76 2
07/21/25 12:34 07/21/25 10:00 07/21/25 10:00 07/21/25 10:00 07/21/25 10:05
Cardiovascular:: Regular rate and rhythm
Respiratory:: Bilateral: CTA (decreased BS)
Lung Excursion:: Normal
Abdomen:: Nontender and Soft
Bowel Sounds:: Normal
Extremity Edema:: None: Left:
Emmanuel Catheter: No
Other Findings::
cl HERRON
--- NOTE | 2025-07-22 11:43 | W.HF.CON ---
Heart Failure
- LV Function
Left ventricular function study result: LV Ejection fraction >/= 50%
Ejection Fraction Percentage: 50-55
- ARNI
Patient already on ARNI: No
Heart Failure ARNI Not Indicated: LV Ejection Fraction >/= 40%
- ACEI/ARB
Patient already on ACEI/ARB: No
Heart Failure ACEI/ARB Not Indicated: LV Ejection Fraction > 40%
- Beta Vini
Patient already on Evidence Based Beta Vini: No
Heart Failure Evidence Based Beta Vini Not Indicated: LV Ejection Fraction > 40%
- Mineralocorticord Receptor Antagonist
Patient already on MRA: No
Heart Failure MRA Not Indicated: LV Ejection Fraction > 40%
- SGLT-2 Inhibitor
Patient already on SGLT-2 Inhibitor: No
Heart Failure SGLT-2 Inhibitor Contraindication: Patient currently on Dialysis, eGFR < 25
- Afib Anticoagulation
Patient already on Anticoagulation for Afib: Yes
- NYHA CHF Classification
NYHA CHF Classification Level: Class III - Symptoms w/ min exertion, interferes w/ nml daily activity
- ACC/AHA Stage
ACC/AHA Stage: Stage C: Symptomatic Heart Failure
== END 2025-07-21 12:51 | DRG 673 ==
LOC: IMU 02:55
PROVIDERS: Emergency Medicine; Hospitalist; Internal Medicine Cardiovascular Disease; Nurse Practitioner Family; Radiology Vascular & Interventional Radiology; Specialist; ADMITTING PHYSICIAN Hospitalist; ATTENDING PHYSICIAN Internal Medicine; CONSULT PHYSICIAN Internal Medicine; CONSULT PHYSICIAN Internal Medicine Gastroenterology; CONSULT PHYSICIAN Student in an Organized Health Care Education/Training Program; EMERGENCY PHYSICIAN Emergency Medicine; FAMILY PHYSICIAN Internal Medicine
PROC: B5181ZA Fluoroscopy of Superior Vena Cava using Low Osmolar Contrast, Guidance (ICD-10-PCS; 2025-07-13)
PROC: 02HV33Z Insertion of Infusion Device into Superior Vena Cava, Percutaneous Approach (ICD-10-PCS; 2025-07-13)
PROC: 30233N1 Transfusion of Nonautologous Red Blood Cells into Peripheral Vein, Percutaneous Approach (ICD-10-PCS; 2025-07-13)
PROC: 4A023N6 Measurement of Cardiac Sampling and Pressure, Right Heart, Percutaneous Approach (ICD-10-PCS; 2025-07-14)
PROC: 5A1D70Z Performance of Urinary Filtration, Intermittent, Less than 6 Hours Per Day (ICD-10-PCS; 2025-07-14)
PROC: 5A09357 Assistance with Respiratory Ventilation, Less than 24 Consecutive Hours, Continuous Positive Airway Pressure (ICD-10-PCS; 2025-07-16)
PROC: 0JH63XZ Insertion of Tunneled Vascular Access Device into Chest Subcutaneous Tissue and Fascia, Percutaneous Approach (ICD-10-PCS; 2025-07-19)
PROC: 05HM33Z Insertion of Infusion Device into Right Internal Jugular Vein, Percutaneous Approach (ICD-10-PCS; 2025-07-19)
PROC: 02PYX3Z Removal of Infusion Device from Great Vessel, External Approach (ICD-10-PCS; 2025-07-19)
PROC: B5131ZA Fluoroscopy of Right Jugular Veins using Low Osmolar Contrast, Guidance (ICD-10-PCS; 2025-07-19)
DX: N17.9 Acute kidney failure, unspecified (principal); G92.8 Other toxic encephalopathy; I50.33 Acute on chronic diastolic (congestive) heart failure; E87.20 Acidosis, unspecified; E66.2 Morbid (severe) obesity with alveolar hypoventilation; I47.20 Ventricular tachycardia, unspecified; J98.11 Atelectasis; I13.0 Hypertensive heart and chronic kidney disease with heart failure and stage 1 through stage 4 chronic kidney disease, or unspecified chronic kidney disease; I25.10 Atherosclerotic heart disease of native coronary artery without angina pectoris; I48.0 Paroxysmal atrial fibrillation; E03.9 Hypothyroidism, unspecified; E78.00 Pure hypercholesterolemia, unspecified; J44.9 Chronic obstructive pulmonary disease, unspecified; E11.22 Type 2 diabetes mellitus with diabetic chronic kidney disease; K59.00 Constipation, unspecified; E87.5 Hyperkalemia; I44.7 Left bundle-branch block, unspecified; E11.42 Type 2 diabetes mellitus with diabetic polyneuropathy; R29.6 Repeated falls; N40.1 Benign prostatic hyperplasia with lower urinary tract symptoms; R33.8 Other retention of urine; E83.51 Hypocalcemia; E83.42 Hypomagnesemia; D69.6 Thrombocytopenia, unspecified; I70.0 Atherosclerosis of aorta; R06.89 Other abnormalities of breathing; K86.89 Other specified diseases of pancreas; D63.1 Anemia in chronic kidney disease; N18.32 Chronic kidney disease, stage 3b; R09.02 Hypoxemia; K52.9 Noninfective gastroenteritis and colitis, unspecified; D50.9 Iron deficiency anemia, unspecified; I27.20 Pulmonary hypertension, unspecified; E83.39 Other disorders of phosphorus metabolism; W06.XXXA Fall from bed, initial encounter; Y93.89 Activity, other specified; Y92.9 Unspecified place or not applicable; Z95.1 Presence of aortocoronary bypass graft; Z89.511 Acquired absence of right leg below knee; Z79.4 Long term (current) use of insulin; Z79.890 Hormone replacement therapy; Z79.85 Long-term (current) use of injectable non-insulin antidiabetic drugs; Z79.01 Long term (current) use of anticoagulants; Z87.891 Personal history of nicotine dependence; Z79.82 Long term (current) use of aspirin; Z68.34 Body mass index [BMI] 34.0-34.9, adult; Z87.19 Personal history of other diseases of the digestive system; Z79.899 Other long term (current) drug therapy; Z89.611 Acquired absence of right leg above knee; Z80.0 Family history of malignant neoplasm of digestive organs
CPT/HCPCS: 36556; 36558; 70450; 71046; 71250; 74019; 74176; 76937; 77001; 80048; 80053; 80076; 81003; 81015; 81099; 82306; 82570; 82607; 82728; 82746; 82805; 82962; 83036; 83516; 83520; 83540; 83550; 83615; 83735; 83880; 83970; 84100; 84132; 84155; 84156; 84165; 84300; 84439; 84443; 84484; 85014; 85018; 85025; 85027; 85045; 86038; 86160; 86335; 86704; 86706; 86803; 86850; 86900; 86901; 86920; 87340; 93005; 93306; 93451; 94660; 97116; 97163; 97167; 97530; 99152; 99153; 99291; C1750; C1769; C1894; G0257; J2916; P9016; P9047; Q5106; Q9950